=== PATIENT | male | born 1975 | race Caucasian/White ===

== ENCOUNTER 2020-07-14 14:04 | Outpatient (REF) | payer OTHER, SELFPAY | END 2020-07-14 14:05 | disposition home or self-care (01) | LOC: HO.HAP 14:04 | PROVIDERS: PCP Internal Medicine; Referring Provider Internal Medicine; Visit Provider Internal Medicine | DX: Z46.1 Encounter for fitting and adjustment of hearing aid (principal) | CPT/HCPCS: V5266 ==

== ENCOUNTER 2020-08-03 13:00 | Outpatient (REF) | payer OTHER, SELFPAY | END 2020-08-03 13:01 | disposition home or self-care (01) | LOC: HO.HAP 13:00 | PROVIDERS: PCP Internal Medicine; Referring Provider Internal Medicine; Visit Provider Internal Medicine | DX: Z46.1 Encounter for fitting and adjustment of hearing aid (principal); H90.3 Sensorineural hearing loss, bilateral; H93.13 Tinnitus, bilateral | CPT/HCPCS: V5266 ==

== ENCOUNTER 2020-08-10 12:37 | Outpatient (REF) | payer OTHER, SELFPAY | END 2020-08-10 12:38 | disposition home or self-care (01) | LOC: HO.HAP 12:37 | PROVIDERS: Visit Provider Internal Medicine | DX: Z46.1 Encounter for fitting and adjustment of hearing aid (principal) | CPT/HCPCS: V5014 ==

== ENCOUNTER 2021-02-25 01:40 | Emergency (ER) | payer OTHER, SELFPAY ==
[2021-02-25 01:54] VITALS: BP 128/69; PULSE 79; RESP 20; TEMP 37.4; O2SAT 95; BMI 23.8
[2021-02-25 03:59] VITALS: BP 133/71; PULSE 83; RESP 16; O2SAT 97
--- NOTE | 2021-02-25 04:22 | PC.NURSE ---
PT left before being seen by the doctor. pt stated it will only take 10 min to see him. pt was explained that the doctor is aware of his knee and will be over to see him shortly. pt was wanting to go home, walked with a steady gait. pt is alert and oriented and denied pain.
== END 2021-02-25 04:25 | disposition left against medical advice (07) ==
PROVIDERS: Emergency Provider Emergency Medicine; PCP Internal Medicine
DX: M25.561 Pain in right knee (principal)
CPT/HCPCS: 73562; 73590; 99282; 99283; 99284

== ENCOUNTER 2021-02-25 15:40 | Emergency (ER) | payer OTHER, SELFPAY ==
--- NOTE | ~2021-02-25 | XR_ITS ---
EXAMINATION: XR KNEE, RIGHT XR TIBIA AND FIBULA, RIGHT CLINICAL INFORMATION: Swelling COMPARISON: None TECHNIQUE: Right knee 4 views, right tibia and fibula 2 views FINDINGS: Right knee: No joint effusion. Moderate soft tissue swelling at the distal patellar tendon and medial and lateral to the right knee. Alignment is normal without joint space narrowing or acute fracture or dislocation seen. Right tibia and fibula: The alignment is normal. No fracture or dislocation is seen in the tibia or fibula. There is irregularity to the medial dome of the talus and a subtle osteochondral lesion is not excluded. XR/XR knee RT 3V IMPRESSION: Soft tissue swelling at the lower aspect of the patellar tendon. No acute osseous abnormality is seen in the knee or tibia and fibula. Irregularity to the medial pole of the talar dome. A subtle osteochondral lesion is not excluded. If the patient has ankle pain, an MRI could be obtained for further assessment.
--- NOTE | ~2021-02-25 | XR_ITS ---
EXAMINATION: XR KNEE, RIGHT XR TIBIA AND FIBULA, RIGHT CLINICAL INFORMATION: Swelling COMPARISON: None TECHNIQUE: Right knee 4 views, right tibia and fibula 2 views FINDINGS: Right knee: No joint effusion. Moderate soft tissue swelling at the distal patellar tendon and medial and lateral to the right knee. Alignment is normal without joint space narrowing or acute fracture or dislocation seen. Right tibia and fibula: The alignment is normal. No fracture or dislocation is seen in the tibia or fibula. There is irregularity to the medial dome of the talus and a subtle osteochondral lesion is not excluded. XR/XR tibia fibula RT 2V IMPRESSION: Soft tissue swelling at the lower aspect of the patellar tendon. No acute osseous abnormality is seen in the knee or tibia and fibula. Irregularity to the medial pole of the talar dome. A subtle osteochondral lesion is not excluded. If the patient has ankle pain, an MRI could be obtained for further assessment.
[2021-02-25 15:58] VITALS: BP 102/77; PULSE 83; RESP 18; TEMP 37.1; O2SAT 98; BMI 23.7
--- NOTE | 2021-02-25 16:47 | ED_ITS ---
HPI - Extremity Injury (Lower) General Chief Complaint: Extremity Injury, Lower Stated Complaint: R/O DVT Time Seen by Provider: 02/25/21 16:47 History of Present Illness HPI Narrative: patient complains of swelling just below his right knee, he has been kneeling on the floor replacing floors for several weeks with long periods of time kneeling on the knee He went to an urgent care and they were concerned when he mentioned that he had also had some cramping of both his legs that he might have a blood clot in the back of his legs He says the cramping happens often when he kneels for a long time and he is having no pain in the back of his legs now Related Data Home Medications Medication Instructions Recorded Confirmed buprenorphine 2 mg-naloxone 0.5 mg 1 tab SUBLINGUAL DAILY 09/22/20 11/22/20 sublingual tablet zolpidem 10 mg tablet 10 mg PO BEDTIME PRN 09/22/20 11/22/20 Previous Rx's Medication Instructions Recorded albuterol sulfate 90 mcg/actuation 1 puff INHALATION Q6H #8.5 g 09/01/20 aerosol inhaler clotrimazole 1 % topical cream 1 appl TOPICAL BID 14 Days #45 g 01/25/21 ibuprofen 600 mg PO Q6H PRN #20 tab 02/25/21 Allergies Allergy/AdvReac Type Severity Reaction Status Date / Time prednisone [PREDNISONE] AdvReac Unknown SHORTNESS Verified 02/25/21 15:58 OF BREATH Review of Systems Review of Systems: positive for lump below the right knee Negatives are no fever no chills no weakness no fainting no headache no neck pa in no back pain no chest pain no shortness of breath no calf pain or swelling no skin rash no numbness weakness or tingling Yes all other systems are reviewed and are negative PMFSH Past Medical History Source: nursing notes reviewed Medical History (Updated 02/25/21 @ 16:52 by REJI Hoang) Annual physical exam Hearing loss Insomnia Opiate abuse, episodic Tinea corporis Tinnitus Surgical History No pertinent past surgical history Family History Family History (Updated 09/21/20 @ 08:24 by Alayna Joe, RMFigueroa, TALENT MANAGER) Father Lymphoma Mother Breast cancer Social History Social History Alcohol intake: current Alcohol intake frequency: holidays/special occasions o nly Alcohol type: hard liquor Advance Directives: No Advance Directives Information Provided: No Physical Exam Vital Signs: Vital Signs: Last Vital Signs Temp 98.8 F 02/25/21 15:58 Pulse 83 02/25/21 15:58 Resp 18 02/25/21 15:58 BP 102/77 02/25/21 15:58 Pulse Ox 98 02/25/21 15:58 Body Mass Index 23.7 general appearance no distress Head is normocephalic atraumatic Neck is supple Respiratory no acute distress Extremities full range of motion x4 Right knee has swelling consistent with infrapatellar bursitis in the anterior lower leg just distal to the patella, there is no redness no warmth no tenderness no discharge The right knee has a full range of motion without discomfort there is no swelling of the knee joint itself no effusion no redness no warmth Other extremities normal Skin no rashes Gait is normal Course Course Course Narrative: x-ray showed soft tissue swelling in the area with no other significant abnormality noted Patient is advised to avoid kneeling on the right knee as this will worsen the bursitis and he is advised to follow with orthopedist if not improved Discharge Plan Discharge Clinical Impression: Infrapatellar bursitis of right knee Patient Disposition: Home, Self-Care Additional Instructions: you can use Motrin as needed, best plan is to not kneel on the affected knee Follow with orthopedist Return any concerns Prescriptions: New ibuprofen 600 mg tablet 600 mg PO Q6H PRN (Reason: pain) Qty: 20 RF: 0 No Action albuterol sulfate 90 mcg/actuation HFA aerosol inhaler 1 puff inhalation Q6H Qty: 8.5 RF: 3 clotrimazole 1 % cream 1 appl topical BID 14 Days Qty: 45 RF: 3 zolpidem [Ambien] 10 mg tablet 10 mg PO BEDTIME PRNRF: 0 buprenorphine-naloxone 2-0.5 mg tablet, sublingual 1 tab sublingual DAILY RF: 0 Referrals: Jasbir Preciado MD [Physician] - 2 days ( right knee infrapatellar bursitis)
== END 2021-02-25 16:59 | disposition home or self-care (01) ==
PROVIDERS: Emergency Provider Internal Medicine; PCP Internal Medicine
DX: M70.51 Other bursitis of knee, right knee (principal); Y93.89 Activity, other specified; F11.10 Opioid abuse, uncomplicated
CPT/HCPCS: 73562; 73590; 99282; 99283

== ENCOUNTER → 2021-03-07 08:01 | Outpatient (BNVA) | payer OTHER, SELFPAY | PROVIDERS: PCP Internal Medicine; Visit Provider Physician Assistant | DX: M70.51 Other bursitis of knee, right knee (principal) | CPT/HCPCS: 20610; 99202 ==

== ENCOUNTER 2021-04-18 16:00 | Outpatient (RCR) | payer OTHER, SELFPAY ==
--- NOTE | 2021-03-20 11:30 | MHC.PT.EP ---
[facility] [place] Office [place] Office [place] Office [address] [phone] F: [phone] F: [phone] F: [phone] F: [phone] Physical Therapy Plan of Care Date of Evaluation: Date of Surgery: Diagnosis: Bursitis of R knee. Assessment: Pt is a 46 y/o male referred to PT for eval and treat of R knee bursitis who presents with signs and Sx consistent with Dx resulting in decreased tolerance for ambulating and standing for duration, negotiating stairs, performing heavy HH tasks as well as squatting activities secondary to R knee patella tendon swelling and TTP, increased quad tissue tension, gait abnormality, and pain. Pt is deemed an appropriate candidate to receive skilled PT in order to address his physical limitations to improve his functional ability. Frequency and Duration: The patient will be seen 2 x / wk x 4 wks. Short Term Goals: Initiate HEP. No longer TTP of R anterior knee. Pt will complete trial of iontophereses with Dexamethasone as recommended by MD. Hip Hop Performers Goals: Pt will be able to walk 1 mile with managed Sx; initial: unable or with extreme difficulty. I with HEP. Pt will be able to tolerate standing > 1 hour with managed Sx; initial: quite a bit of difficulty. R knee extension MMT improved to > 4+/5; initial 4/5 limited by pain and apprehension. Treatment Plan: Modalities to reduce pain, spasms and effusion. Manual therapy to restore motion and function. Therapeutic exercise to improve strength and flexibility. Neuromuscular re-education for posture and balance. Therapeutic activities to return to functional activities of daily living. Electronically signed by: Gallo Maddox PT. Please sign and return to therapist. Thank you for your referral.
--- NOTE | 2021-05-04 14:12 | MHC.PT.DC ---
[facility] [place] [facility] [place] Office [place] Office [address] Phuc Mac[address] [phone] F: [phone] F: [phone] F: [phone] F: [phone] Physical Therapy Discharge Report Diagnosis: Bursitis of R knee. Date of Surgery: Date of Evaluation: 03/20/21 Date of Discharge: 05/04/21 Treatments to Date: 8 Cancellations to Date: No Shows to Date: Discharge Status: Achieved Goals Improved Function Independent with HEP Patient Elected to Stop Discharge Summary: Pt has a good understanding of exs. Pt concerned he is lacking iron. Advised to F/U with to get bl work completed. Electronically signed by: Gallo Maddox PT Please sign and return to therapist. Thank you for your referral.
== END 2021-05-04 14:12 | disposition home or self-care (01) ==
LOC: HO.PTCHIC 16:00
PROVIDERS: PCP Internal Medicine; Visit Provider Physician Assistant
DX: M70.51 Other bursitis of knee, right knee (principal)
CPT/HCPCS: 97014; 97033; 97110; 97140; 97161; 97530

== ENCOUNTER 2021-05-01 11:54 | Outpatient (REF) | payer OTHER, SELFPAY ==
[2021-05-01 14:07] LABS: Hematocrit 42.6 % (42-52); Hemoglobin 14.7 g/dl (14.0-18.0); Mean Corpuscular HGB Conc 34.5 g/dl (31.0-36.0); Mean Corpuscular Hemoglobin 29.1 pg (27.0-33.0); Mean Corpuscular Volume 84.2 fL (80-98); Mean Platelet Volume 11.3 fL (9.4-12.4); Platelet Count 201 X10*3/uL (160-400); Red Blood Count 5.06 X10*6/uL (4.60-5.80); Red Cell Distribution Width 12.5 % (11.0-16.0); White Blood Count 5.8 X10*3/uL (4.8-10.8)
[2021-05-01 14:29] LABS: Alanine Aminotransferase 14 U/L (0-40); Albumin Level 4.1 g/dL (3.5-5.0); Alkaline Phosphatase 60 U/L (39-117); Anion Gap 11 (12-20); Aspartate Amino Transferase 23 U/L (5-37); Bilirubin Total 0.6 mg/dL (0.0-1.0); Blood Urea Nitrogen 13 mg/dL (9-16); Calcium 9.2 mg/dL (8.4-10.2); Carbon Dioxide 26 mmol/L (22-29); Chloride 105 mmol/L (96-108); Cholesterol 160 mg/dL; Estimated Glomerular Filt Rate > 60; Glucose Fasting 81 mg/dL (60-99); HDL Cholesterol 53 mg/dL; Iron 108 mcg/dL (45-160); LDL Cholesterol Calculated 95 mg/dl; Percent Iron Saturation 38 % (15-50); Potassium 4.3 mmol/L (3.3-5.1); Sodium 138 mmol/L (135-145); Total Iron Binding Capacity 287 mcg/dL (228-428); Total Protein 6.2 g/dL (6.5-8.0); Triglycerides 61 mg/dL; Unsaturated Iron Binding 179 ug/dL
== END 2021-05-01 11:55 | disposition home or self-care (01) ==
LOC: HO.HMGCLDS 11:54
PROVIDERS: PCP Internal Medicine; Visit Provider Internal Medicine
DX: Z00.00 Encounter for general adult medical examination without abnormal findings (principal)
CPT/HCPCS: 36415; 80053; 80061; 83540; 85027

== ENCOUNTER 2021-07-12 08:52 | Outpatient (REF) | payer OTHER, SELFPAY ==
[2021-07-12 13:42] LABS: CT PCR NOT DETECTED (Not Detect.); NG PCR NOT DETECTED (Not Detect.)
[2021-07-13 08:29] LABS: Syphilis Screen Nonreactive (Nonreactive)
[2021-07-13 09:29] LABS: HBS Num1 1.43 mIU/mL (0-7.99); HBc Num1 0.04 S/CO (0.00-0.79); HIV AB/AG Nonreactive (Nonreactive); HIV Num 1 0.07 S/CO (0.00-0.99); Hepatitis B Core Antibody Nonreactive (Nonreactive); ~Hepatitis B Surface Antibody NONREACTIVE (Nonreactive)
== END 2021-07-12 08:53 | disposition home or self-care (01) ==
LOC: HO.HMGCLDS 08:52
PROVIDERS: PCP Internal Medicine; Visit Provider Internal Medicine
DX: Z00.00 Encounter for general adult medical examination without abnormal findings (principal); Z11.4 Encounter for screening for human immunodeficiency virus [HIV]; Z11.3 Encounter for screening for infections with a predominantly sexual mode of transmission
CPT/HCPCS: 86704; 86706; 86780; 87389; 87491; 87591

== ENCOUNTER 2021-07-17 13:03 | Outpatient (REF) | payer OTHER, SELFPAY ==
[2021-07-19 21:57] LABS: TS Negative Control Passed; TS Panel A 0; TS Panel B 0; TS Positive Control Passed; TSpotTB Negative (Negative)
== END 2021-07-17 13:04 | disposition home or self-care (01) ==
LOC: HO.HMGCLDS 13:03
PROVIDERS: PCP Nurse Practitioner Family; Visit Provider Nurse Practitioner Family
DX: Z11.1 Encounter for screening for respiratory tuberculosis (principal)
CPT/HCPCS: 36415; 86481

== ENCOUNTER 2021-07-27 15:06 | Outpatient (REF) | payer OTHER, SELFPAY | END 2021-07-27 15:07 | disposition home or self-care (01) | LOC: HO.HAP 15:06 | PROVIDERS: Visit Provider Nurse Practitioner Family | DX: Z46.1 Encounter for fitting and adjustment of hearing aid (principal); H90.3 Sensorineural hearing loss, bilateral | CPT/HCPCS: 92593; V5266 ==

== ENCOUNTER 2021-10-22 12:29 | Outpatient (REF) | payer OTHER, SELFPAY ==
--- NOTE | 2021-10-24 10:11 | MHC.AU.AHA ---
Adult Audiological Evaluation Date of Visit: 10/22/21 Reason for Appointment: History of sensorineural hearing loss, tinnitus, and hyperacusis. He arrives today to determine if there has been a change in his hearing. Patient reports that his tinnitus contributes significantly to his anxiety. He tries to avoid being in quiet spaces, as it makes his tinnitus more pronounced. 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 History of Eustachian Tube Dysfunction- patient reports he frequently pops his ears throughout the day to relieve pressure. Previous Hearing Test Results: At [facility] on 05/27/2018- Normal sloping to moderate/moderately-severe sensorineural hearing loss bilaterally, slightly worse in the left ear. Ear History: Recent Ear Drainage: None Reported Recent Ear Infections: None Reported Previous Ear Surgery: None Reported Bothersome Tinnitus/Ringing/Noises in Ears: Both Ears History of occupational noise exposure?: Yes Hearing Instrument History- Right Ear: Geophysical Party Chief: Property Owl Model: Next Glass [id number] Serial Number: [id number] Battery Size: 312 Repair Warranty: 12/23/2018 Dispensed By: [facility] Date of Fittin10/09/2016 Hearing Instrument History- Left Ear: Geophysical Party Chief: Property Owl Model: Next Glass [id number] Serial Number: [id number] Battery Size: 312 Repair Warranty: 12/23/2018 Dispensed By: [facility] Date of Fittin10/09/2016 Otoscopy: Right Ear: Unremarkable Left Ear: Unremarkable Tympanometry: Tympanometry performed due to: To assess integrity of the middle ear system Right Ear: Normal Middle Ear System (Type A) Left Ear: Normal Middle Ear System (Type A) Hearing Evaluation: Transducer(s) Used: Insert Earphones Method: Conventional Audiometry Stimuli Used: Pure Tones Right Ear: Description of Hearing: Normal from 250-1000 Hz, sloping to moderately-severe sensorineural hearing loss Left Ear: Description of Hearing: Normal from 250-1000 Hz, sloping to moderately-severe sensorineural hearing loss Speech Recognition Threshold (SRT): Method Used: Recorded Lists Stimuli Used: Spondee Words Right Ear: 40 dBHL Left Ear: 35 dBHL Word Discrimination: Method: Recorded Lists Word Lists Used: W-22 Right Ear: 84% at 70 dBHL Left Ear: 84% at 70 dBHL Most Comfortable Level (MCL): Right Ear: 70 dBHL Left Ear: 70 dBHL Comparison: Compared to most recent evaluation: Slight decrease in thresholds in the right ear. Previously, left ear was slightly worse; now, the hearing is more symmetrical. Recommendations: Audiological re-evaluation in one year. See Hearing Aid Evaluation report for more information. Diagnosis: Primary Diagnosis: H90.3 Bilateral Sensorineural Hearing Loss Secondary Diagnosis: H93.13 Tinnitus, Bilateral Signature: Provider: Alma Rosa Mathis, [facility]
--- NOTE | 2021-10-24 10:13 | MHC.AU.MED ---
Medical Clearance for Hearing Instrumentation Date: 10/24/21 Patient Name: Ulises Macias Date of : 1975 Referring Provider: Mariola Cifuentes MD We have seen your patient on 10/12/21 and have determined that they are a candidate for amplification (See accompanying report). Specifically, they would benefit from: Hearing aid use in both ears There is a statute that addresses Medical Evaluation Requirements prior to fitting a patient with a hearing aid. According to [place] statute [facility] CMR:6.03(1), (a) General. Except as provided in 265 CMR 6.03(1)(b), a pneumatic tube fitter shall not sell a hearing aid unless the prospective user has presented to the pneumatic tube fitter a written statement signed by a licensed physician that states that the patient's hearing loss has been medically evaluated and the patient may be considered a candidate for a hearing aid. The medical evaluation must have taken place within the preceding six months. Please note: Due to the [place] Statute referenced above, we cannot accept a signature other than that of a licensed physician. CUSTOMER ACCOUNT EXECUTIVE and PA signatures cannot be accepted. I am in agreement with the above recommendation. There is no medical contraindication for hearing instrumentation. Physician Signature Date Physician Name (Printed)
--- NOTE | 2021-10-24 10:14 | MHC.AU.HAS ---
Hearing Aid Evaluation Date of Visit: 10/22/21 Historical Information: Description of Hearing: Normal sloping to moderately-severe sensorineural hearing loss bilaterally Current personal amplification information, if applicable: Pair of Phonak Audeo [id number], obtained 10/09/2016 Summary: Patient was seen for audiological re-evaluation (see separate report for details). Patient is eligible for new hearing aids. With his current hearing aids, he reports that he often had difficulty localizing sound. He also reports they would fall off easily if he was changing his shirt. Hearing aid options were discussed. A pair of Phonak Audeo P instruments and a pair of ReSound One instruments. Patient felt both had an improved sound quality over his current instruments. He liked the way the ReSound Ones sat behind his ear better, but reported that both felt comfortable. Discussed ReSound's M&STEPHANIA receivers and how it may help with localization- patient would like to try them. He would also like rechargeable, as he does many outdoor activities and would like something more water/sweat resistant. Hearing Aid Prescription: Based on the individual?s shared listening needs, communication environments, dexterity, desire for connectivity, and personal preferences, the following prescription for amplification has been made: Right ear: Hides And Skins Colorer: ReSound Model: One 7 STEPHANIA Rechargeable Battery Size: Rechargeable Color: 70 Custom Studio Coordinator: Size 2 M&STEPHANIA Type of Dome: large open Left ear: Left ear prescription to be same as Right Hearing Aid above: Hides And Skins Colorer: ReSound Model: One 7 STEPHANIA Rechargeable Battery Size: Rechargeable Color: 70 Custom Studio Coordinator: Size 2 M&STEPHANIA Type of Dome: Large open Action Taken/Action Needed: Medical Clearance to be requested from PCP Hearing Instrument Fitting to be scheduled when materials arrive Primary Diagnosis: H90.3 Bilateral Sensorineural Hearing Loss Secondary Diagnosis: H93.13 Tinnitus, Bilateral Signature: Provider: Alma Rosa Mathis, [facility]
== END 2021-10-22 12:30 | disposition home or self-care (01) ==
LOC: HO.SH 12:29
PROVIDERS: Visit Provider Internal Medicine
DX: Z01.118 Encounter for examination of ears and hearing with other abnormal findings (principal); Z46.1 Encounter for fitting and adjustment of hearing aid; H90.3 Sensorineural hearing loss, bilateral; H93.13 Tinnitus, bilateral
CPT/HCPCS: 92557; 92567; 92591; V5266

== ENCOUNTER 2021-11-09 13:31 | Outpatient (REF) | payer OTHER, SELFPAY ==
--- NOTE | 2021-11-09 14:42 | MHC.AU.HFA ---
Hearing Instrument Fitting- Adult- Binaural Date of Visit: 11/09/21 Hearing Instruments Dispensed: Right Ear: Cable Operator: ReSound Model: One 7 STEPHANIA Rechargeable Serial Number: [id number] Repair Warranty: 12/01/2024 Loss and Damage Warranty: 12/01/2024 Battery Size: Rechargeable Color: 70 Pen Ruler Operator: Size 2 M&STEPHANIA Type of Dome: large open Left Ear: Cable Operator: ReSound Model: One 7 STEPHANIA Rechargeable Serial Number: [id number] Repair Warranty: 12/01/2024 Loss and Damage Warranty: 12/01/2024 Battery Size: Rechargeable Color: 70 Pen Ruler Operator: Size 2 M&STEPHANIA Type of Dome: Large open Type of Wax Guard: CeruStop Summary of Fitting: Patient arrived for hearing aid fitting. Calibration was run. Verifit performed and levels adjusted to better reach targets. Initially, M&STEPHANIA receivers with large closed domes were originally tried. Patient felt his own voice was too loud (he is used to using open domes). Switched to open domes; however, too much feedback was present. Switched to tulip domes, but all sound overall was too loud. Changed back to regular 2MP receivers. An improvement in feedback and patient's perception of the sound was noted, though some feedback remained if he put his finger near the microphones. He would like to try them for now, as he did like that they sounded natural. Patient is used to [employer]'s feedback management system and domes. A pair of [employer] Audeo [id number] will be ordered. Patient will try them at the next visit and decide if he would like to stay with the ReSound instruments or go back to [employer]. Patient did not want the hearing aids paired to his phone at this moment- he will do so at home. Recommendations: Patient will be contacted when the [employer] instruments have arrived. Diagnosis Code(s): Primary Diagnosis: H90.3 Bilateral Sensorineural Hearing Loss Secondary Diagnosis: H93.13 Tinnitus, Bilateral Signature: Provider: Alma Rosa Mathis, [facility]
== END 2021-11-09 13:32 | disposition home or self-care (01) ==
LOC: HO.HAP 13:31
PROVIDERS: Visit Provider Internal Medicine
DX: Z46.1 Encounter for fitting and adjustment of hearing aid (principal); H90.3 Sensorineural hearing loss, bilateral; H93.13 Tinnitus, bilateral
CPT/HCPCS: V5011; V5020; V5160; V5261

== ENCOUNTER 2021-11-14 13:37 | Outpatient (REF) | payer OTHER, SELFPAY | END 2021-11-14 13:38 | disposition home or self-care (01) | LOC: HO.HAP 13:37 | PROVIDERS: Visit Provider Internal Medicine | DX: Z13.89 Encounter for screening for other disorder (principal) ==

== ENCOUNTER 2021-11-22 15:12 | Outpatient (REF) | payer OTHER, SELFPAY | END 2021-11-22 15:13 | disposition home or self-care (01) | LOC: HO.HAP 15:12 | PROVIDERS: Visit Provider Internal Medicine | DX: Z46.1 Encounter for fitting and adjustment of hearing aid (principal); H90.3 Sensorineural hearing loss, bilateral; H93.13 Tinnitus, bilateral | CPT/HCPCS: V5160 ==

== ENCOUNTER → 2021-11-27 13:59 | Outpatient (BNVA) | payer OTHER, SELFPAY | PROVIDERS: PCP Internal Medicine; Visit Provider Nurse Practitioner Family | DX: G47.31 Primary central sleep apnea (principal); G47.33 Obstructive sleep apnea (adult) (pediatric); G47.00 Insomnia, unspecified | CPT/HCPCS: 99212 ==

== ENCOUNTER 2021-11-30 13:17 | Outpatient (REF) | payer OTHER, SELFPAY ==
--- NOTE | 2021-11-30 15:33 | MHC.AU.HFU ---
Hearing Instrument Follow-Up- Binaural Date of Visit: 11/30/21 Follow-Up Summary: Patient has primarily been using the Phonak instruments since his last visit. He feels they are very close to being what he needs, but there's still a few concerns. He has noticed that when transitioning between environments (ex. car to restaurant) he hears them breaking up for a brief moment. He also noted that certain sounds may have a slight echo after. In program options for AutoSense, slowed the transition time from Balanced to Slow, as part of the issue may be that he could sense the automatic switch in programs. He went outside to his car and back in to test, and he feels it is better, but still not quite where he wants it. He asked if there was a way to decrease the microphone sensitivity instead of decreasing gain. Discussed that the software does not allow us to specifically adjust microphone sensitivity, but we can adjust the directionality. After demonstrating the different directionalities, patient immediately noticed an improvement when in Omnidirectional mode. He reports that he feels more balanced in his environment, and that it sounds much more natural. In all of the sub-program in AutoSense, directionality was switched to Omni. He was given a program that was speech in noise with UltraZoom still in place in case he has trouble hearing in a noisy environment and needs the directionality to help. Recommendations: Patient will make an appointment for next week to check progress. He will also bring in the ReSound hearing aids, and he would like to try Omnidirectional in those as well. Also considering a demo of the Oticon More, as those may be closer to the omni sound experience that he likes. Diagnosis Code(s): Primary Diagnosis: H90.3 Bilateral Sensorineural Hearing Loss Secondary Diagnosis: H93.13 Tinnitus, Bilateral Signature: Provider: Alma Rosa Mathis, [facility]
== END 2021-11-30 13:18 | disposition home or self-care (01) ==
LOC: HO.HAP 13:17
PROVIDERS: Visit Provider Internal Medicine
DX: Z13.89 Encounter for screening for other disorder (principal)

== ENCOUNTER 2022-01-01 08:49 | Outpatient (REF) | payer OTHER, SELFPAY ==
--- NOTE | ~2022-01-01 | XR_ITS ---
EXAMINATION: XR HAND, RIGHT CLINICAL INFORMATION: Pain in right hand. COMPARISON: None. TECHNIQUE: PA, lateral, and oblique views of the right hand. FINDINGS: There is loss of PIP and DIP joint spaces without periarticular spurring. No bony erosive changes. The soft tissues are normal. XR/XR hand RT min 3V IMPRESSION: Suspect mild degenerative changes PIP and DIP joints. No visible acute fracture or dislocation, especially no abnormality involving the 1st metacarpophalangeal joint.
== END 2022-01-01 08:50 | disposition home or self-care (01) ==
LOC: HO.HOSX 08:49
PROVIDERS: Visit Provider Orthopaedic Surgery
DX: S63.641A Sprain of metacarpophalangeal joint of right thumb, initial encounter (principal)
CPT/HCPCS: 73130

== ENCOUNTER 2022-01-17 13:46 | Outpatient (REF) | payer OTHER, SELFPAY | END 2022-01-17 13:47 | disposition home or self-care (01) | LOC: HO.HAP 13:46 | PROVIDERS: Visit Provider Internal Medicine | DX: Z13.89 Encounter for screening for other disorder (principal) ==

== ENCOUNTER 2022-01-18 14:47 | Outpatient (REF) | payer OTHER, SELFPAY | END 2022-01-18 14:48 | disposition home or self-care (01) | LOC: HO.HAP 14:47 | PROVIDERS: Visit Provider Internal Medicine | DX: Z13.89 Encounter for screening for other disorder (principal) ==

== ENCOUNTER 2022-01-22 14:30 | Outpatient (RCR) | payer OTHER, SELFPAY ==
--- NOTE | 2022-01-09 09:04 | MHC.OT.EP ---
[address] [phone] Occupational Therapy Plan of Care Date of Evaluation: 01/08/22 Diagnosis: Right thumb UCL strain Assessment: 46 yo right hand dominant male presents w/ right thumb UCL strain due to repetitive use and one incidence of overpulling/extending his thumb while attempting to pop the joint. On assessment, he has good range, sensation and stability in MCP of right thumb, but has moderate edema and reports decreased strength w/ every day activities, specifically pinching and grasping. We have fit him with custom hand based thumb spica w/ IP free to maintain MCP stability. We will continue OT services for conservative management of UCL strain. Frequency and Duration: The patient will be seen 1x/wk for 4 weeks Short Term Goals: Ind w/ orthosis wear Ind w/ joint protection/activity modification Pain free at rest in right thumb Decrease thumb edema by 0.[address] Mri Technologist Goals: Decrease thumb edema by 0.5 cm Pt to utilize right hand/thumb for light prehensile tasks while avoiding resisted pinching Progress AROM of MCP jt Pt to maintain low pain in right thumb with light use of hand *will progress/reassess for further need for services after ortho follow up 02/05/22 Treatment Plan: Therapeutic Exercise Therapeutic Activity Home Exercise Program Splinting Patient Education Edema Control ADL Training Ultrasound Iontophoresis Paraffin Fluidotherapy MHP Cold Packs Soft Tissue Mobilization Kinesiotaping Electronically Signed By: Miriam Lombardi OTR/L CHT Please Sign and return to therapist. Thank you once again for your referral.
--- NOTE | 2022-02-19 13:44 | MHC.OT.DC ---
[address] [phone] F: [phone] Occupational Therapy Discharge Note Provider: Dr Monae Diagnosis: Right thumb UCL strain Date of Evaluation: 01/08/22 Date of Discharge: 02/19/22 Treatments to Date: 5 Discharge Status: Independent with HEP Discharge Summary: Reza has been seen by OT for splinting needs related to Gamekeeper's thumb. He had been on hold w/ instruction to wear thumb spica orthosis until follow up with Dr Monae. He has had follow up and appears to be doing well with good range and pain free. No further OT services needed at this time. Electronically Signed By: Miriam Lombardi OTR/L CHT Please Sign and return to therapist, thank you for your referral.
== END 2022-02-19 13:45 | disposition home or self-care (01) ==
LOC: HO.OT 14:30
PROVIDERS: PCP Internal Medicine; Visit Provider Orthopaedic Surgery
DX: S63.641D Sprain of metacarpophalangeal joint of right thumb, subsequent encounter (principal)
CPT/HCPCS: 29130; 97140; 97165; 97760

== ENCOUNTER 2022-01-25 16:09 | Outpatient (REF) | payer OTHER, SELFPAY | END 2022-01-25 16:10 | disposition home or self-care (01) | LOC: HO.HAP 16:09 | PROVIDERS: Visit Provider Internal Medicine | DX: Z13.89 Encounter for screening for other disorder (principal) ==

== ENCOUNTER 2022-01-28 14:16 | Outpatient (REF) | payer OTHER, SELFPAY | END 2022-01-28 14:17 | disposition home or self-care (01) | LOC: HO.HAP 14:16 | PROVIDERS: Visit Provider Internal Medicine | DX: Z13.89 Encounter for screening for other disorder (principal) ==

== ENCOUNTER → 2022-02-05 13:41 | Outpatient (BNVA) | payer OTHER, SELFPAY | PROVIDERS: PCP Internal Medicine; Visit Provider Orthopaedic Surgery | DX: S63.641D Sprain of metacarpophalangeal joint of right thumb, subsequent encounter (principal) | CPT/HCPCS: 99212 ==

== ENCOUNTER 2022-02-06 15:02 | Outpatient (REF) | payer OTHER, SELFPAY | END 2022-02-06 15:03 | disposition home or self-care (01) | LOC: HO.HAP 15:02 | PROVIDERS: Visit Provider Internal Medicine | DX: Z13.89 Encounter for screening for other disorder (principal) ==

== ENCOUNTER 2022-02-13 13:59 | Outpatient (REF) | payer OTHER, SELFPAY ==
--- NOTE | 2022-02-13 18:18 | MHC.AU.HFU ---
Hearing Instrument Follow-Up- Binaural Date of Visit: 02/13/22 Right Ear: Head Of Commission Department: ReSound Model: One 7 STEPHANIA Rechargeable Serial Number: [id number] Repair Warranty: 12/01/2024 Loss and Damage Warranty: 12/01/2024 Battery Size: Rechargeable Color: 70 Program Manager Slp: Size 2 MP Type of Dome: large open Type of Wax Guard: ReSound wax guards Dispensed By: [facility] Date of Fittin11/09/2021 Left Ear: Head Of Commission Department: ReSound Model: One 7 STEPHANIA Rechargeable Serial Number: [id number] Repair Warranty: 12/01/2024 Loss and Damage Warranty: 12/01/2024 Battery Size: Rechargeable Color: 70 Program Manager Slp: Size 2 MP Type of Dome: Large open Type of Wax Guard: ReSound wax guards Dispensed By: [facility] Date of Fittin Follow-Up Summary: Mr. Macias decided he would like to keep the ReSound One hearing aids and return the Phonak Audeo hearing aids. He turned in the Phonak hearing aids today and they will be returned for credit. He asked for some adjustments to the ReSound aids. He notes that the push button changes programs instead of volume control. Changed push button to do volume control, and turned volume control range up per his request. He notes that the Restaurant program seems too loud. Turned down three notches to match the All Around program more closely. He also asked that a Music program be added and put in the second position. Mr. Macias also asked to have retention wires added to the hearing aids. He reported comfortable fit and sound quality. Signature: Provider: Alma Rosa Zuniga, [facility]
== END 2022-02-13 14:00 | disposition home or self-care (01) ==
LOC: HO.HAP 13:59
PROVIDERS: Visit Provider Internal Medicine
DX: Z13.89 Encounter for screening for other disorder (principal)

== ENCOUNTER 2022-02-20 13:59 | Outpatient (REF) | payer OTHER, SELFPAY ==
--- NOTE | 2022-02-21 15:03 | MHC.AU.HFU ---
Hearing Instrument Follow-Up- Binaural Date of Visit: 02/20/22 Follow-Up Summary: Patient's Phonak hearing aids were returned for credit last week. He has since changed his mind and is inquiring if it is too late to switch back to Phonak. He reports that while he prefers the sound quality and the jenny for ReSound, they are not as comfortable as the Phonak ones. He finds that the wind noise on the ReSound instruments is too loud and bothersome, possibly due to the orientation of the microphones. The size of the ReSound instruments is larger overall, and is not comfortable behind his ears. The speaker portion of the multifocal lens inspector wire is also longer on the ReSounds receivers, which has been bothering his canals. He does not think he'd be able to handle using the ReSound instruments long-term. He brought his father's Phonak hearing aids and reported that his father is not using them. He inquired if his father's Phonak hearing aids could be reprogrammed for him so he could switch between ReSound and Phonak as desired. Discussed that I would not reprogram them at this time, as his father should be the one using and benefiting from them. Advised patient to encourage his father to schedule a hearing aid follow-up to address why he is not wearing them. The ReSound trial was previously extended until 02/27/2022. I allowed the ReSound instruments to be returned since they were causing physical discomfort. Patient was provided with a loaner set of Phonak Audeo P50-R Trial instruments (#[id number], [id number]). The Phonak hearing aids will be re-ordered. Discussed that after this, we cannot switch the hearing aids back again. Recommendations: Patient will be contacted when materials have arrived. Diagnosis Code(s): Primary Diagnosis: H90.3 Bilateral Sensorineural Hearing Loss Secondary Diagnosis: H93.13 Tinnitus, Bilateral Signature: Provider: Alma Rosa Mathis, [facility]
== END 2022-02-20 14:00 | disposition home or self-care (01) ==
LOC: HO.HAP 13:59
PROVIDERS: Visit Provider Internal Medicine
DX: Z13.89 Encounter for screening for other disorder (principal)

== ENCOUNTER 2022-03-04 17:51 | Outpatient (REF) | payer OTHER, SELFPAY ==
[2022-03-04 18:43] LABS: Influenza A PCR NEGATIVE (Negative); Influenza B PCR NEGATIVE (Negative); Resp Syncy Virus RNA Qual PCR NEGATIVE (Negative); SARS COV2 PCR INHOUSE NEGATIVE (Negative)
== END 2022-03-04 17:52 | disposition home or self-care (01) ==
LOC: HO.LNP 17:51
PROVIDERS: Visit Provider Emergency Medicine
DX: R68.89 Other general symptoms and signs (principal); Z20.822 Contact with and (suspected) exposure to COVID-19
CPT/HCPCS: 0241U

== ENCOUNTER 2022-03-05 14:28 | Outpatient (REF) | payer OTHER, SELFPAY ==
--- NOTE | ~2022-03-05 | XR_ITS ---
EXAMINATION: XR CHEST CLINICAL INFORMATION: Bronchitis COMPARISON: Previous chest x-ray February 2016 TECHNIQUE: 2 views of the chest were obtained. FINDINGS: The cardiac and mediastinal contours are normal. There is a new airspace disease in the left central upper lobe/suprahilar region. This may represent pneumonia. Mass cannot be excluded and chest x-ray follow-up following treatment is recommended. Lungs are otherwise clear. There is no pleural effusion or pneumothorax. There are degenerative changes of the spine. XR/XR chest 2V IMPRESSION: New airspace disease in the central left upper lobe/suprahilar region probably representing pneumonia. Mass cannot be excluded and chest x-ray follow-up following treatment recommended. If chest x-ray finding fails to resolve or there is no clinical suspicion of infection, chest CT with IV contrast would be recommended.
== END 2022-03-05 14:29 | disposition home or self-care (01) ==
LOC: HO.HMGCX 14:28
PROVIDERS: Visit Provider Physician Assistant
DX: J40 Bronchitis, not specified as acute or chronic (principal)
CPT/HCPCS: 71046

== ENCOUNTER 2022-03-07 14:54 | Outpatient (REF) | payer OTHER, SELFPAY ==
--- NOTE | 2022-03-14 10:42 | MHC.AU.HFA ---
Hearing Instrument Fitting- Adult- Binaural Date of Visit: 03/07/22 Hearing Instruments Dispensed: Right Ear: Spinner Box: Phonak Model: Audeo P70-R Serial Number: [id number] Repair Warranty: 05/22/2025 Loss and Damage Warranty: 05/22/2025 Battery Size: Rechargeable Color: Sand Beige Human Geography Instructor: Size 2M Type of Dome: Medium Open Type of Wax Guard: Cerushield Left Ear: Spinner Box: Phonak Model: Audeo P70-R Serial Number: [id number] Repair Warranty: 05/22/2025 Loss and Damage Warranty: 05/22/2025 Battery Size: Rechargeable Color: Sand Beige Human Geography Instructor: Size 2M Type of Dome: Medium Open Type of Wax Guard: Cerushield Summary of Fitting: Patient arrived for fitting of his Phonak Audeo P70-R instruments. The ReSound instruments were previously returned for credit. He returned the loaner instruments in good condition. The Phonak hearing aids were programmed with the latest settings from when he initially tried the Audeo P70-R (verifit had been run previously). Hearing aid care and maintenance were discussed. Patient reports he feels more confident in his decision to return to the Phonak instruments, as he finds them more comfortable than the ReSound ones. Recommendations: Hearing aid follow-up and maintenance as needed. Diagnosis Code(s): Primary Diagnosis: H90.3 Bilateral Sensorineural Hearing Loss Secondary Diagnosis: H93.13 Tinnitus, Bilateral Signature: Provider: Alma Rosa Mathis, [facility]
== END 2022-03-07 14:55 | disposition home or self-care (01) ==
LOC: HO.HAP 14:54
PROVIDERS: Visit Provider Internal Medicine
DX: Z46.1 Encounter for fitting and adjustment of hearing aid (principal); H90.3 Sensorineural hearing loss, bilateral; H93.13 Tinnitus, bilateral
CPT/HCPCS: V5011; V5020; V5160; V5261

== ENCOUNTER 2022-03-14 10:40 | Outpatient (REF) | payer OTHER, SELFPAY ==
--- NOTE | ~2022-03-14 | XR_ITS ---
EXAMINATION: XR CHEST CLINICAL INFORMATION: Pneumonia COMPARISON: 03/05/2020 TECHNIQUE: 2 views of the chest were obtained. FINDINGS: Right lung is clear. There is stable left upper lobe irregular, spiculated 2.6 x 3.2 cm consolidation, possibly mass. Cardiomediastinal silhouette is normal. No evidence of pleural effusion. XR/XR chest 2V IMPRESSION: Questionable left upper lobe mass. Correlate with CT scan Communication: Findings reported to Dr. Mariola Victor at 12:30 PM on 03/14/2022
== END 2022-03-14 10:41 | disposition home or self-care (01) ==
LOC: HO.HMGCX 10:40
PROVIDERS: PCP Internal Medicine; Visit Provider Internal Medicine
DX: J18.9 Pneumonia, unspecified organism (principal)
CPT/HCPCS: 71046

== ENCOUNTER 2022-03-22 10:56 | Outpatient (REF) | payer OTHER, SELFPAY ==
--- NOTE | ~2022-03-22 | CT_ITS ---
EXAMINATION: CT CHEST WITH CONTRAST CLINICAL INFORMATION: Left upper lobe lung mass COMPARISON: Previous chest x-ray 03/14/2022 TECHNIQUE: Multidetector volumetric CT imaging of the chest was obtained after the administration of 65 mL of Omnipaque 350 intravenous contrast without immediate adverse reactions. Axial MIP volume rendering provided. Sagittal and coronal reformatted images were obtained. This CT examination was performed using dose optimization techniques as appropriate, variously including the following: *Automated exposure control *Adjustment of mA and/or kV according to patient size (this includes techniques or standardized protocols for targeted exams where dose is matched to indication/reason for exam; i.e. extremities or head) *Use of iterative reconstruction technique DLP: 291 mGy-cm FINDINGS: CROP OR GRAIN FARMER: Spiculated lesion left upper lobe LUNGS: There is a solitary spiculated cavitary nodule in the anterior segment of the left upper lobe. This is irregular in shape and difficult to measure. This measures 5 x 2 cm in longitudinal and transverse dimension coronal reconstructed image 31 and 4.5 cm anterior dimension sagittal reconstructed image 36. This has spicules extending to the anterior and medial pleural surfaces. There may be adjacent focal bronchiectasis. There is some surrounding increased groundglass attenuation. There is a 4 mm right upper lobe nodule axial image 191 series 5. MEDIASTINUM: There are small mediastinal and bilateral hilar lymph nodes. No enlarged lymph nodes are seen. Normal heart size. No pericardial effusion. Normal caliber thoracic aorta. Normal visualized thyroid gland. PLEURA: There is no pleural effusion. No pleural mass or thickening. AXILLA: No lymphadenopathy. UPPER ABDOMEN: There are multiple liver cysts. Largest cyst measures 3 x 4.5 cm in the right lobe of the liver. OSSEOUS STRUCTURES: There are degenerative changes of the spine. CT/CT chest w con IMPRESSION: Spiculated cavitary lesion in the left upper lobe. Infectious, inflammatory and neoplastic processes should be considered. If there is clinical symptoms of infection/pneumonia, short-term follow-up CT following antibiotic therapy would be recommended in several weeks. Otherwise tissue sampling should be considered. Fleischner guidelines were followed. Findings will be communicated by the [place] work flow senior business development manager.
[2022-03-22] MEDS: iohexoL 350 MG/ML 75 ML INFUS..BTL 65 ML IV (11:51)
== END 2022-03-22 10:57 | disposition home or self-care (01) ==
LOC: HO.CT 10:56
PROVIDERS: PCP Internal Medicine; Visit Provider Internal Medicine
DX: R91.8 Other nonspecific abnormal finding of lung field (principal)
CPT/HCPCS: 71260; Q9967

== ENCOUNTER 2022-04-01 12:44 | Outpatient (REF) | payer OTHER, SELFPAY ==
--- NOTE | ~2022-04-01 | XR_ITS ---
EXAMINATION: XR CHEST CLINICAL INFORMATION: Left upper lobe cavitary lesion. Follow-up. J18.9. COMPARISON: Chest radiographs 03/14/2022, 03/05/2022, CT chest noncontrast 03/22/2022 TECHNIQUE: 2 views of the chest were obtained. FINDINGS: The irregular cavitary mass anterior left upper lobe is substantially decreased in size from prior studies. There is still some irregular opacity in the area and continued follow-up to clearing is recommended. The remainder of the lungs are clear. There is no pleural reaction or effusion. The heart is normal in size. The hilar and mediastinal contours are unremarkable. There are degenerative changes again seen thoracic spine similar to prior studies. XR/XR chest 2V IMPRESSION: -Left upper lobe irregular cavitary mass substantially decreased in size from prior studies. -Recommend continued follow-up to confirm resolution.
[2022-04-01 13:44] LABS: MANUAL DIFF FLAG NO
[2022-04-01 13:51] LABS: Basophils Absolute Auto 0.1 X10*3/uL (0.0-0.2); Basophils Percent Auto 2.4 % (0-2); Eosinophils Absolute Auto 0.8 X10*3/uL (0.0-0.4); Eosinophils Percent Auto 14.4 % (0-4); Hematocrit 43.8 % (42.0-52.0); Hemoglobin 14.9 g/dl (14.0-18.0); Imm Gran Abs Auto 0.03 X10*3/uL (0.00-0.03); Imm Gran Pct Auto 0.5 % (0.0-0.4); Lymphocytes Absolute Auto 1.5 X10*3/uL (1.2-4.9); Lymphocytes Percent Auto 26.3 % (20-40); Mean Corpuscular Volume 85.4 fL (80.0-98.0); Mean Platelet Volume 11.4 fL (9.4-12.4); Monocytes Absolute Auto 0.3 X10*3/uL (0.1-1.2); Monocytes Percent Auto 5.7 % (2-11); Neutrophils Absolute Auto 2.9 x10*3/uL (2.0-8.3); Neutrophils Percent Auto 50.7 % (45-73); Platelet Count 180 X10*3/uL (160-400); Red Blood Count 5.13 X10*6/uL (4.60-5.80); Red Cell Distribution Width 12.7 % (11.0-16.0); White Blood Count 5.8 X10*3/uL (4.8-10.8)
[2022-04-01 14:19] LABS: Alanine Aminotransferase 15 U/L (0-40); Albumin Level 4.1 g/dL (3.5-5.0); Alkaline Phosphatase 73 U/L (39-117); Anion Gap 13 (12-20); Aspartate Amino Transferase 19 U/L (5-37); Bilirubin Total 0.7 mg/dL (0.0-1.0); Blood Urea Nitrogen 11 mg/dL (9-16); C Reactive Protein 0.06 mg/dL (< or = 0.50); Calcium 9.2 mg/dL (8.4-10.2); Carbon Dioxide 27 mmol/L (22-29); Chloride 103 mmol/L (96-108); Estimated Glomerular Filt Rate > 60; Glucose Fasting 75 mg/dL (60-99); Potassium 4.2 mmol/L (3.3-5.1); Sodium 139 mmol/L (135-145); Total Protein 6.4 g/dL (6.5-8.0)
[2022-04-04 00:02] LABS: TS Negative Control Passed; TS Panel A 0; TS Panel B 0; TS Positive Control Passed; TSpotTB Negative (Negative)
== END 2022-04-01 12:45 | disposition home or self-care (01) ==
LOC: HO.HMGCX 12:44
PROVIDERS: PCP Internal Medicine; Visit Provider Internal Medicine
DX: Z11.1 Encounter for screening for respiratory tuberculosis (principal); J18.9 Pneumonia, unspecified organism; R91.8 Other nonspecific abnormal finding of lung field
CPT/HCPCS: 36415; 71046; 80053; 85025; 86140; 86481

== ENCOUNTER 2022-04-04 14:39 | Outpatient (REF) | payer OTHER, SELFPAY | END 2022-04-04 14:40 | disposition home or self-care (01) | LOC: HO.HAP 14:39 | PROVIDERS: Visit Provider Internal Medicine | DX: Z13.89 Encounter for screening for other disorder (principal) ==

== ENCOUNTER 2022-04-17 10:44 | Outpatient (REF) | payer OTHER, SELFPAY ==
--- NOTE | ~2022-04-17 | XR_ITS ---
EXAMINATION: XR CHEST CLINICAL INFORMATION: Pneumonia COMPARISON: Previous chest x-ray most recent 04/01/2022 TECHNIQUE: 2 views of the chest were obtained. FINDINGS: There is no appreciable change in the increased markings seen in the central/suprahilar left upper lobe compared to most recent exam 04/01/2022. The lungs are otherwise clear. There is no pleural effusion or pneumothorax. There are mild degenerative changes of the spine. XR/XR chest 2V IMPRESSION: Similar appearance to the increased markings in the central left upper lobe/suprahilar region from most recent exam 04/01/2022.
[2022-04-17 11:01] LABS: MANUAL DIFF FLAG NO
[2022-04-17 11:50] LABS: Basophils Absolute Auto 0.1 X10*3/uL (0.0-0.2); Basophils Percent Auto 2.1 % (0-2); Eosinophils Absolute Auto 0.5 X10*3/uL (0.0-0.4); Eosinophils Percent Auto 9.4 % (0-4); Hematocrit 46.3 % (42.0-52.0); Hemoglobin 15.8 g/dl (14.0-18.0); Imm Gran Abs Auto 0.04 X10*3/uL (0.00-0.03); Imm Gran Pct Auto 0.7 % (0.0-0.4); Lymphocytes Absolute Auto 1.6 X10*3/uL (1.2-4.9); Lymphocytes Percent Auto 27.9 % (20-40); Mean Corpuscular HGB Conc 34.1 g/dl (31.0-36.0); Mean Corpuscular Hemoglobin 28.9 pg (27.0-33.0); Mean Corpuscular Volume 84.8 fL (80.0-98.0); Mean Platelet Volume 11.3 fL (9.4-12.4); Monocytes Absolute Auto 0.4 X10*3/uL (0.1-1.2); Monocytes Percent Auto 7.2 % (2-11); Neutrophils Percent Auto 52.7 % (45-73); Platelet Count 207 X10*3/uL (160-400); Red Blood Count 5.46 X10*6/uL (4.60-5.80); Red Cell Distribution Width 12.6 % (11.0-16.0); White Blood Count 5.7 X10*3/uL (4.8-10.8)
[2022-04-17 12:45] LABS: Erythrocyte Sedimentation Rate 2 MM/HR (0-15)
[2022-04-17 12:51] LABS: HIV AB/AG Nonreactive (Nonreactive); HIV Num 1 0.07 S/CO (0.00-0.99)
[2022-04-19 14:46] LABS: IgA 196 mg/dL (47-310); IgG 985 mg/dL (600-1640); IgM 56 mg/dL (50-300)
[2022-04-20 00:36] LABS: TS Negative Control Passed; TS Panel A 0; TS Panel B 0; TS Positive Control Passed; TSpotTB Negative (Negative)
[2022-04-27 15:02] LABS: Asperg fumigatus Precip Abs NEGATIVE (NEGATIVE); Micropoly faeni Abs NEGATIVE (NEGATIVE); Pigeon serum Abs NEGATIVE (NEGATIVE); Saccharo pora viridis Abs NEGATIVE (NEGATIVE); Thermo candidus Abs NEGATIVE (NEGATIVE); Thermoa vulgaris #1 NEGATIVE (NEGATIVE)
== END 2022-04-17 10:45 | disposition home or self-care (01) ==
LOC: HO.LAB 10:44
PROVIDERS: PCP Internal Medicine; Visit Provider Hospitalist
DX: Z11.1 Encounter for screening for respiratory tuberculosis (principal); Z11.4 Encounter for screening for human immunodeficiency virus [HIV]; J18.9 Pneumonia, unspecified organism; J98.4 Other disorders of lung; J45.40 Moderate persistent asthma, uncomplicated; R91.8 Other nonspecific abnormal finding of lung field; D72.10 Eosinophilia, unspecified
CPT/HCPCS: 36415; 71046; 82784; 82785; 85025; 85652; 86003; 86331; 86481; 86606; 86609; 87389; 99202

== ENCOUNTER → 2022-04-23 15:10 | Outpatient (BNVA) | payer OTHER, SELFPAY | PROVIDERS: PCP Internal Medicine; Visit Provider Nurse Practitioner Family | DX: G47.00 Insomnia, unspecified (principal); G47.31 Primary central sleep apnea; G47.33 Obstructive sleep apnea (adult) (pediatric) | CPT/HCPCS: 99212 ==

== ENCOUNTER 2022-05-03 10:53 | Outpatient (REF) | payer OTHER, SELFPAY ==
--- NOTE | 2022-05-03 13:50 | PFT_ITS ---
FLOWS: FEV1 104% of predicted at 4.62 L. FVC 103% of predicted at 5.84 L. FEV1 to FVC ratio of 0.79. No bronchodilator response. LUNG VOLUMES: Total lung capacity 103% of predicted at 7.82 L. Residual volume 93% of predicted at 1.99 L. Slow vital capacity 107% of predicted at 5.83 L. Expiratory reserve volume 65% predicted at 1.16 L. Diffusion capacity is normal. IMPRESSION: No obstructive or restrictive ventilatory defect. No bronchodilator response. Essentially normal pulmonary function test. Davon Duran MD AP/MODL / [id number]
== END 2022-05-03 10:54 | disposition home or self-care (01) ==
LOC: HO.RESP 10:53
PROVIDERS: PCP Internal Medicine; Visit Provider Hospitalist
DX: J18.9 Pneumonia, unspecified organism (principal); J98.4 Other disorders of lung
CPT/HCPCS: 94060; 94727; 94729

== ENCOUNTER → 2022-05-20 13:47 | Outpatient (BNVA) | payer OTHER, SELFPAY | PROVIDERS: PCP Internal Medicine; Visit Provider Hospitalist | DX: J18.9 Pneumonia, unspecified organism (principal); J98.4 Other disorders of lung; J44.9 Chronic obstructive pulmonary disease, unspecified; R91.8 Other nonspecific abnormal finding of lung field; J45.40 Moderate persistent asthma, uncomplicated; D72.10 Eosinophilia, unspecified; J30.9 Allergic rhinitis, unspecified | CPT/HCPCS: 99212 ==

== ENCOUNTER 2022-08-27 13:45 | Outpatient (REF) | payer OTHER, SELFPAY | END 2022-08-27 13:46 | disposition home or self-care (01) | LOC: HO.XRAY 13:45 | PROVIDERS: PCP Internal Medicine; Visit Provider Hospitalist | DX: J18.9 Pneumonia, unspecified organism (principal); J98.4 Other disorders of lung; D72.10 Eosinophilia, unspecified; J30.9 Allergic rhinitis, unspecified; R91.8 Other nonspecific abnormal finding of lung field | CPT/HCPCS: 99212 ==

== ENCOUNTER 2022-10-01 16:42 | Outpatient (REF) | payer OTHER, SELFPAY ==
--- NOTE | ~2022-10-01 | CT_ITS ---
EXAMINATION: CT CHEST WITHOUT CONTRAST CLINICAL INFORMATION: Pneumonia COMPARISON: Chest x-ray 04/17/2022 TECHNIQUE: Multidetector volumetric CT imaging of the chest was done. Axial MIP volume rendering provided. Sagittal and coronal reformatted images were obtained. This CT examination was performed using dose optimization techniques as appropriate, variously including the following: *Automated exposure control *Adjustment of mA and/or kV according to patient size (this includes techniques or standardized protocols for targeted exams where dose is matched to indication/reason for exam; i.e. extremities or head) *Use of iterative reconstruction technique DLP: 169 mGy-cm FINDINGS: PROTOTYPE MACHINE OPERATOR: Unremarkable chest exam. LUNGS: The lungs are well-expanded with patchy ill-defined opacity, left upper lobe anterior segment axial image 24/. No pulmonary nodules, mass or consolidation seen. MEDIASTINUM: The thyroid lobes are symmetric and normal. The central trachea and the bronchi are widely patent. Heart size and the great vessels are normal caliber. No pericardial effusion seen. No abnormal size mediastinal or hilar lymph nodes seen. CORONARY ARTERY CALCIFICATION: None visualized on this study. PLEURA: There is no pleural effusion or thickening. AXILLA: Small shotty lymph nodes are seen in the axilla. The largest left axillary lymph node measures 1.4 x 0.6 cm. It has central lucency and appears benign. UPPER ABDOMEN: Multiple low-density liver lesions are seen. They measure fluid density. No intrahepatic ductal dilatation seen. There is no hepatomegaly. Visualized gallbladder, pancreas and spleen are unremarkable. OSSEOUS STRUCTURES: No aggressive lytic or sclerotic process seen. There is mild ventral spondylosis with degenerative disc changes. CT/CT chest wo IV con IMPRESSION: 1. No acute process seen in the chest. 2. Minimal patchy opacity left upper lobe anterior segment. Likely old scar from pneumonia. 3. No abnormal mediastinal or axillary lymph nodes seen. 4. Multiple liver cysts. Fleischner guidelines were followed.
== END 2022-10-01 16:43 | disposition home or self-care (01) ==
LOC: HO.CT 16:42
PROVIDERS: PCP Internal Medicine; Visit Provider Hospitalist
DX: J18.9 Pneumonia, unspecified organism (principal); J98.4 Other disorders of lung; R91.8 Other nonspecific abnormal finding of lung field
CPT/HCPCS: 71250

== ENCOUNTER 2022-12-06 15:38 | Outpatient (REF) | payer OTHER, SELFPAY ==
--- NOTE | 2022-12-06 16:26 | MHC.AU.HA3 ---
Hearing Instrument Follow-Up- Binaural Date of Visit: 12/06/22 Right Ear: Make, Model, Color, Serial Number: Phonak Audeo P70-R, #[id number] Commodities Clerk Repair Warranty: 05/22/2025 Commodities Clerk Loss and Damage Warranty: 05/22/2025 Battery Size: Rechargeable Change Analyst/Slim Tube: 2M Earmold/Dome/CShell/SlimTip:Medium Open Type of Wax Guard: CeruShield Dispensed By: [facility] Date of Fittin03/07/2022 Left Ear: Make, Model, Color, Serial Number: Phonak Homeeo P70-R, #[id number] Commodities Clerk Repair Warranty: 05/22/2025 Commodities Clerk Loss and Damage Warranty: 05/22/2025 Battery Size: Rechargeable Change Analyst/Slim Tube: 2M Earmold/Dome/CShell/SlimTip: Medium Open Type of Wax Guard: CeruShield Dispensed By: [facility] Date of Fittin03/07/2022 Follow-Up Summary: Patient reports that his right hearing aid suddenly stopped charging. He is unsure if this is due to the agriculture inspector or the hearing aid itself. There was rust noted on the battery contacts inside the agriculture inspector. He was given a replacement agriculture inspector from stock (under warranty). Both hearing aids were placed in the electric dehumidifer for several minutes as a precaution due to the rust noted in the agriculture inspector. The right hearing aid will not agriculture inspector in his agriculture inspector or our stock chargers. The right hearing aid was sent to [facility] for repair. He was provided with a loaner Phonak Audeo P70-R Trial (#[id number]). His right milk inspector and dome were placed on the loaner instrument. Recommendations: Patient will be contacted when materials have arrived. Diagnosis Code(s): Primary Diagnosis: H90.3 Bilateral Sensorineural Hearing Loss Secondary Diagnosis: H93.13 Tinnitus, Bilateral Signature: Provider: Jess Mathis, [facility]
== END 2022-12-06 15:39 | disposition home or self-care (01) ==
LOC: HO.HAP 15:38
PROVIDERS: Visit Provider Internal Medicine
DX: Z13.89 Encounter for screening for other disorder (principal)

== ENCOUNTER 2022-12-18 14:15 | Outpatient (REF) | payer SELFPAY ==
--- NOTE | 2022-12-18 15:20 | MHC.AU.HA3 ---
Hearing Instrument Follow-Up- Binaural Date of Visit: 12/18/22 Right Ear: Make, Model, Color, Serial Number: Wendy Bhateo P70-R, #[id number] Welding Process Specialist Repair Warranty: 05/22/2025 Welding Process Specialist Loss and Damage Warranty: 05/22/2025 Battery Size: Rechargeable Agronomy Teacher/Slim Tube: 2M Earmold/Dome/CShell/SlimTip:Medium Open Type of Wax Guard: CeruShield Dispensed By: [facility] Date of Fittin03/07/2022 Left Ear: Make, Model, Color, Serial Number: Wendy Bhateo P70-R, #[id number] Welding Process Specialist Repair Warranty: 05/22/2025 Welding Process Specialist Loss and Damage Warranty: 05/22/2025 Battery Size: Rechargeable Agronomy Teacher/Slim Tube: 2M Earmold/Dome/CShell/SlimTip: Medium Open Type of Wax Guard: CeruShield Dispensed By: [facility] Date of Fittin03/07/2022 Follow-Up Summary: Patient arrived to warp picker his repaired right hearing aid. He returned the loaner in good condition. The right and left hearing aids were paired back together. Also, color laboratory technician replaced on the left hearing aid and requested new roll picker, as his had rust on the contacts. Recommendations: Patient will be contacted when the replacement roll picker arrives (does not need appointment- can just warp picker). The replacement color laboratory technician that was requested can be put back into stock. Signature: Provider: Jess Mathis, [facility]
== END 2022-12-18 14:16 | disposition home or self-care (01) ==
LOC: HO.HAP 14:15
PROVIDERS: Visit Provider Internal Medicine
DX: Z13.89 Encounter for screening for other disorder (principal)

== ENCOUNTER 2023-01-29 11:35 | Outpatient (REF) | payer OTHER, SELFPAY | END 2023-01-29 11:36 | disposition home or self-care (01) | LOC: HO.HAP 11:35 | PROVIDERS: Visit Provider Internal Medicine | DX: Z13.89 Encounter for screening for other disorder (principal) ==

== ENCOUNTER 2023-03-14 13:27 | Outpatient (AMB) | payer OTHER, SELFPAY ==
[2023-03-14 13:57] VITALS: BP 128/74; PULSE 91; O2SAT 98; BMI 25.8
--- NOTE | 2023-03-14 13:57 | MHC.PC.OV ---
Vital Signs 03/14/23 13:57 Height 6 ft 1 in Weight 195 lb 4 oz BMI 25.8 BP 128/74 Blood Pressure Location Rt brachial Position Sitting Pulse 91 Pulse Source Pulse Oximeter Pulse Oximetry (%) 98 Oxygen Delivery Method Room Air Intake Visit Reasons: PE Intake Note: Pt is here today for PE. Allergies doxycycline Allergy (Verified 03/14/23 14:14) burning skin sensation Medication List - Last Reconciled 03/14/23 by Mariola Cifuentes MD albuterol sulfate 90 mcg/actuation 2 inhalations inhalation Q6H PRN 30 days azelastine 2 sprays intranasal BID 30 days budesonide-formoterol 160-4.5 mcg/actuation (Symbicort) 2 puffs inhalation BID 30 days buprenorphine-naloxone 2-0.5 mg (Suboxone) 2 mg sublingual DAILY clotrimazole 1% 1 appl topical BID 2 weeks ibuprofen 600 mg PO Q6H PRN pseudoephedrine HCl ER 120 mg PO Q12H 30 days zolpidem (Ambien) 20 mg (2 x 10 mg) PO BEDTIME PRN 30 days Tobacco use date assessed: 03/14/23 Dental Screening Dental Screen Date: 03/14/23 Did you have a dental visit in the last 12 months?: Yes Did you have a dental problem in the last 6 months where you did not have access to dental care?: No Was dental information given to patient?: Patient has dentist HPI PE HPI Details Pt presents for PE. [facility] Medical History (Updated 03/14/23 @ 14:35 by Mariola Cifuentes MD) Annual physical exam Asthma Cavitary pneumonia Chronic allergic rhinitis Eosinophilia Hearing loss Hearing loss Insomnia Opiate abuse, episodic Pulmonary nodules Tinea corporis Tinnitus Surgical History Hx of appendectomy No pertinent past surgical history Family History Father Lymphoma Mother Breast cancer Social History Household Members Other:: father Housing: House Alcohol intake: current Alcohol intake frequency: holidays/special occasions only Alcohol type: hard liquor Patient Tobacco Use Status: Never used Tobacco e-Cigarette/Vaping Use: Never Used Current occupational status: employed 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 16808 - PHQ-9 Billing: Patient declined-do not bill Source: Developed by Drs. Gilberto Pradhan, Tabby Corbin, Manish Conteh and colleagues, with an educational chanel from [employer]. Thrive Questionnaire Date Thrive assessed: 03/14/23 I am a: Patient What is your living situation today?: I have a steady place to live Within the past 12 months, did the food you bought not last and you didn't have the money to get more?: Never true Within the past 12 months, did you worry whether your food would run out before you got money to buy more?: Never true Do you have trouble paying for medicines?: No Do you have trouble getting transportation to medical appointments?: No Do you have trouble paying your heating and electricity bill?: No Do you have trouble taking care of your child, family member or friend?: No Do you have trouble with day-to-day activities such as bathing, preparing meals, shopping, managing finances, etc.?: No Are you currently unemployed and looking for a job?: No Are you interested in more education?: No AUDIT C Alcohol Use Questionnaire (AUDIT-C) 1. How often do you have a drink containing alcohol?: 2-4 times a month 2. How many drinks containing alcohol do you have on a typical day when you are drinking?: 1 or 2 3. How often do you have six or more drinks on one occasion?: Never Total Score: 2 Score Reviewed/Action Taken: Yes KESHAV-7 AMB Questionnaire KESHAV-7 Date KESHAV - 7 assessed: 03/14/23 Source: Developed by Drs. Gilberto Pradhan, Tabby Corbin, Manish Conteh and colleagues, with an educational chanel from [employer]. KESHAV-7 Assessment Billing KESHAV-7 Assessment Tool: pt declined-do not bill Review of Systems Const All systems reviewed & are unremarkable except as noted in HPI and below Reports no additional complaints Eyes Reports no additional complaints ENT Reports no additional complaints Card Reports no additional complaints Resp Reports no additional complaints GI Reports no additional complaints Reports no additional complaints Physical exam (Primary Care) Vital Signs: Last Vital Signs Pulse 91 03/14/23 13:57 BP 128/74 03/14/23 13:57 Pulse Ox 98 03/14/23 13:57 Oxygen Delivery Method Room Air 03/14/23 13:57 BMI result Body Mass Index 25.8 Tobacco/Smoking Status: Tobacco use Status Tobacco use date assessed 03/14/23 03/14/23 13:58 Patient Tobacco Use Status Never used Tobacco 03/14/23 13:58 e-Cigarette/Vaping Use Never Used 03/14/23 13:58 Thrive Assessment: Date of Thrive Assessment Date Thrive assessed 03/14/23 03/14/23 14:16 Const General: no acute distress HENMT Ears: hearing grossly normal bilaterally Mouth: Normal oral and palatal mucosa present Throat: Yes posterior oropharynx normal Eyes General: appearance normal, both eyes and all related structures Neck Neck: Yes supple Resp Effort & Inspection: normal respiratory effort Auscultation: clear to auscultation bilaterally Cardio Rhythm: regular rhythm Heart sounds: S1 normal heart sound present and S2 normal heart sound present GI Inspection: Yes normal to inspection Palpation (GI): Soft to palpation Percussion: Yes normal to percussion Assessment and Plan Assessment & Plan (1) Annual physical exam: Code(s): Z. - Encounter for general adult medical examination without abnormal findings Plan: well balanced diet, exercise, return for labs, refer to GI for colonoscopy (2) Asthma: Comment: MILD , Proair 1-2 a month Code(s): J45.909 - Unspecified asthma, uncomplicated Qualifiers: Asthma severity: moderate Asthma persistence: persistent Asthma complication type: uncomplicated Qualified Code(s): J45.40 - Moderate persistent asthma, uncomplicated Orders: Orders Comprehensive [place]. Panel Fast Today Z00.00 - Encounter for general adult medical examination without abnormal findings Lipid Panel Today Z00.00 - Encounter for general adult medical examination without abnormal findings Complete Blood Count Auto Diff Today Z00.00 - Encounter for general adult medical examination without abnormal findings UA w Microscopic Today Z00.00 - Encounter for general adult medical examination without abnormal findings T Spot TB Today Z00.00 - Encounter for general adult medical examination without abnormal findings Referrals Gastroenterology Referral Z00.00 - Encounter for general adult medical examination without abnormal findings Medications: Discontinued budesonide-formoterol 160-4.5 mcg/actuation (Symbicort) Discontinued Reason: Doctor's Order 2 puffs inhalation BID 30 days 10.2 grams 11RF J44.9 - Chronic obstructive pulmonary disease, unspecified azelastine administer into each nostril Discontinued Reason: Doctor's Order 2 sprays intranasal BID 30 days 30 mL 6RF Coding Level of Care Code Est Pt Prev Care 40-64y(63642) Diagnoses Annual physical exam Z00.00 Asthma J45.40 Asthma severity: moderate Asthma persistence: persistent Asthma complication type: uncomplicated
== END 2023-03-14 14:38 | disposition home or self-care (01) ==
PROVIDERS: PCP Internal Medicine; Visit Provider Internal Medicine
DX: Z00.00 Encounter for general adult medical examination without abnormal findings (principal); J45.40 Moderate persistent asthma, uncomplicated
CPT/HCPCS: 99396

== ENCOUNTER 2023-08-02 14:21 | Outpatient (AMB) | payer OTHER, SELFPAY ==
[2023-08-02 14:27] VITALS: BP 104/72; PULSE 87; TEMP 37; O2SAT 99; BMI 25.7
--- NOTE | 2023-08-02 14:27 | AM.OFFWIN_ITS ---
Intake Vital Signs 08/02/23 14:27 Height 6 ft 1 in Weight 195 lb BMI 25.7 BP 104/72 Blood Pressure Location Lt brachial Position Sitting Pulse 87 Pulse Source Pulse Oximeter Temp 98.6 F Temp Source Oral Pulse Oximetry (%) 99 Oxygen Delivery Method Room Air Intake Visit Reasons: EP, dog bite right hand Intake Note: Pt is here today c/o dog bite Rt hand (his dog) x9days ago Patient Tobacco Use Status: Never used Tobacco Allergies doxycycline Allergy (Verified 08/02/23 14:28) burning skin sensation HPI HPI Comments History of Present Illness Details 48-year-old male that by his dog 6 days ago on the hand presents for concern of infection. Denies any fevers chills drainage redness of the area. Does have wood cramping sensation in the lateral aspect of his hand. [facility] Medical History (Updated 03/14/23 @ 14:35 by Mariola Cifuentes MD) Chronic allergic rhinitis Pulmonary nodules Eosinophilia Asthma Cavitary pneumonia Hearing loss Annual physical exam Opiate abuse, episodic Tinea corporis Hearing loss Tinnitus Insomnia Surgical History Hx of appendectomy No pertinent past surgical history Family History Father Lymphoma Mother Breast cancer Social History Household Members Other:: father Housing: House Alcohol intake: current Alcohol intake frequency: holidays/special occasions only Alcohol type: hard liquor Patient Tobacco Use Status: Never used Tobacco e-Cigarette/Vaping Use: Never Used Current occupational status: employed 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 Cognitive needs: No Hearing needs: No Vision needs: No Review of Systems Skin/Breast Details: Puncture wound lateral aspect of the right thumb Physical Exam Vital Signs: Last Vital Signs Temp 98.6 F 08/02/23 14:27 Pulse 87 08/02/23 14:27 BP 104/72 08/02/23 14:27 Pulse Ox 99 08/02/23 14:27 Oxygen Delivery Method Room Air 08/02/23 14:27 BMI result Body Mass Index 25.7 Const General: cooperative, healthy appearing, no acute distress and alert Orientation/consciousness: patient oriented x3 Limitations: no limitations HEENT Head: Yes normal to inspection Ears: hearing grossly normal bilaterally General nose exam: Normal external nose present Resp Effort & Inspection: normal respiratory effort and able to speak in complete sentences Cardio Rate: regular rate Skin General skin exam: no rashes or lesions noted Neuro General: patient oriented x3 Extrem Other: Range of motion of the hand intact puncture wound right lateral aspect of the right thumb no overlying erythema swelling or warmth General: Yes normal to inspection Assessment & Plan Assessment & Plan (1) Dog bite: Code(s): W54.0XXA - Bitten by dog, initial encounter Qualifiers: Encounter type: initial encounter Qualified Code(s): W54.0XXA - Bitten by dog, initial encounter Plan: Shared decision-making occurred with the patient patient shows no evidence or sign of infection in his 6 days out. Low suspicion at this time. Will prescribe antibiotics should the patient decide to take them. Discharge instructions, follow up and treatment are discussed with patient in my usual fashion. Alternatives in treatment are also discussed. The patient will return for worsening symptoms or as needed. Advised that any labs/imaging ordered will be followed up on and contact made if further treatment needed. Counseled that patient's condition may require further evaluation and/or treatment. Symptoms of concern for worsening disorder discussed in detail in my customary manner. Patient does verbalize understanding of the plan, there are no apparent barriers to communication. The patient is given the opportunity to ask questions and have them answered to his/her satisfaction Medications: New amoxicillin-pot clavulanate 875-125 mg 1 tab PO BID 20 tabs 0RF 10 days Coding Level of Care Code New Pt Level 3 (43132) Diagnoses Dog bite, initial encounter W54.0XXA Encounter type: initial encounter
== END 2023-08-02 14:44 | disposition home or self-care (01) ==
PROVIDERS: PCP Internal Medicine; Visit Provider Physician Assistant
DX: S61.031A Puncture wound without foreign body of right thumb without damage to nail, initial encounter (principal); W54.0XXA Bitten by dog, initial encounter
CPT/HCPCS: 99051; 99203

== ENCOUNTER 2023-08-27 12:12 | Outpatient (AMB) | payer OTHER, SELFPAY ==
[2023-08-27 13:18] VITALS: BP 120/80; PULSE 99; TEMP 36.3; O2SAT 96; BMI 26.3
--- NOTE | 2023-08-27 13:18 | MHC.OFFWIV ---
Intake Vital Signs 08/27/23 13:18 Height 6 ft 1 in Weight 199 lb BMI 26.3 BP 120/80 Blood Pressure Location Lt brachial Position Sitting Pulse 99 Pulse Source Pulse Oximeter Temp 97.4 F Temp Source Temporal Artery Scan Pulse Oximetry (%) 96 Oxygen Delivery Method Room Air Intake Visit Reasons: EST/std test([phone]) Intake Note: pt is here today for STD test 2 days ago Patient Tobacco Use Status: Never used Tobacco Allergies doxycycline Allergy (Verified 08/27/23 14:02) burning skin sensation Medication List - Last Reconciled 08/27/23 by Manuel Moody MD albuterol sulfate 90 mcg/actuation 2 inhalations inhalation Q6H PRN 30 days amoxicillin-pot clavulanate 875-125 mg 1 tab PO BID 10 days buprenorphine-naloxone 2-0.5 mg (Suboxone) 2 mg sublingual DAILY zolpidem (Ambien) 20 mg (2 x 10 mg) PO BEDTIME PRN 30 days Do you need a note to return to daycare/school/sports/work: No HPI EST/std test([phone]) HPI Details 48-year-old male presents to the office for a sick visit. Patient reports that he has been in a new relationship for the past 5 weeks. He is heterosexual, single partner for the past 5 weeks and is having unprotected sex. Reporting discharge from his penis at times with occasional burning sensation. No fevers or chills. [facility] Medical History (Updated 03/14/23 @ 14:35 by Mariola Cifuentes MD) Chronic allergic rhinitis Pulmonary nodules Eosinophilia Asthma Cavitary pneumonia Hearing loss Annual physical exam Opiate abuse, episodic Tinea corporis Hearing loss Tinnitus Insomnia Surgical History Hx of appendectomy No pertinent past surgical history Family History Father Lymphoma Mother Breast cancer Social History Household Members Other:: father Housing: House Alcohol intake: current Alcohol intake frequency: holidays/special occasions only Alcohol type: hard liquor Patient Tobacco Use Status: Never used Tobacco e-Cigarette/Vaping Use: Never Used Current occupational status: employed 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 Cognitive needs: No Hearing needs: No Vision needs: No Physical Exam Vital Signs: Last Vital Signs Temp 97.4 F 08/27/23 13:18 Pulse 99 08/27/23 13:18 BP 120/80 08/27/23 13:18 Pulse Ox 96 08/27/23 13:18 Oxygen Delivery Method Room Air 08/27/23 13:18 BMI result Body Mass Index 26.3 Const General: cooperative and healthy appearing Nutritional Appearance: well nourished Orientation/consciousness: patient oriented x3 Limitations: no limitations HEENT Head: Yes normal to inspection Eyes General: appearance normal, both eyes and all related structures Neck Neck: Yes normal visual inspection Chest Chest palpation & inspection: normal palpation of entire chest wall Resp Effort & Inspection: normal respiratory effort Neuro General: patient oriented x3 Results AMB Urinalysis, Automated UA Leukoctes 15 Daniel/uL Last Edit by Abiel Waddell CMA on 08/27/23 13:43 UA Nitrite Negative Last Edit by Abiel Waddell CMA on 08/27/23 13:43 UA Urobilinogen 0.2 mg/dL Last Edit by Abiel Waddell CMA on 08/27/23 13:43 UA Protein 0 mg/dL Last Edit by Abiel Waddell CMA on 08/27/23 13:43 UA pH 7.0 Last Edit by Abiel Waddell CMA on 08/27/23 13:43 UA Blood 0 Giovanni/uL Last Edit by Abiel Waddell CMA on 08/27/23 13:43 UA Specific [place] 1.005 Last Edit by Abiel Waddell CMA on 08/27/23 13:43 UA Ketone Negative Last Edit by Abiel Waddell CMA on 08/27/23 13:43 UA Bilirubin 0 mg/dL Last Edit by Abiel Waddell CMA on 08/27/23 13:43 UA Glucose 0 mg/dL Last Edit by Abiel Waddell CMA on 08/27/23 13:43 Results Reviewed Results Reviewed: Laboratory Last Values Urine pH (Auto) 7.0 08/27/23 13:42 Specific [place] (Auto) 1.005 01/03/24 13:42 Urine Protein (Auto) 0 mg/dL 08/27/23 13:42 Glucose (UA)(Auto) 0 mg/dL 08/27/23 13:42 Urine Ketones (Auto) Negative 08/27/23 13:42 Urine Blood (Auto) 0 Giovanni/uL 08/27/23 13:42 Urine Nitrite (Auto) Negative 08/27/23 13:42 Urine Bilirubin (Auto) 0 mg/dL 08/27/23 13:42 Urine Urobilinogen (Auto) 0.2 mg/dL 08/27/23 13:42 Leukocyte Esterase (Auto) 15 Daniel/uL 08/27/23 13:42 Assessment & Plan Assessment & Plan (1) Urethritis: Code(s): N34.2 - Other urethritis Plan: Urine for chlamydia and gonorrhea will be tested. Blood for syphilis and HIV to be tested. Patient will be treated with azithromycin and ciprofloxacin. Orders: Orders AMB Urinalysis Automated Today Z13.9 - Encounter for screening, unspecified Syphilis Screen Today Z11.9 - Encounter for screening for infectious and parasitic diseases, unspecified HIV Ab/Ag Today Z11.9 - Encounter for screening for infectious and parasitic diseases, unspecified Coding Level of Care Code Est Pt Level 3 (63252) Diagnoses Urethritis N34.2
== END 2023-08-27 14:17 | disposition home or self-care (01) ==
PROVIDERS: PCP Internal Medicine; Visit Provider Internal Medicine
DX: N34.2 Other urethritis (principal)
CPT/HCPCS: 81003; 99213

== ENCOUNTER 2023-08-27 14:02 | Outpatient (REF) | payer OTHER, SELFPAY | END 2023-08-27 14:03 | disposition home or self-care (01) | LOC: HO.HMGCLDS 14:02 | PROVIDERS: Visit Provider Internal Medicine | DX: Z11.9 Encounter for screening for infectious and parasitic diseases, unspecified (principal) | CPT/HCPCS: 0353U; 36415; 86780; 87389 ==

== ENCOUNTER 2023-09-26 15:11 | Outpatient (AMB) | payer OTHER, SELFPAY ==
[2023-09-26 15:19] VITALS: BP 120/72; PULSE 83; TEMP 36.2; O2SAT 99; BMI 26.4
--- NOTE | 2023-09-26 15:19 | AM.OFFWIN_ITS ---
Intake Vital Signs 09/26/23 15:19 Height 6 ft 1 in Weight 200 lb BMI 26.4 BP 120/72 Blood Pressure Location Lt brachial Position Sitting Pulse 83 Pulse Source Pulse Oximeter Temp 97.2 F Temp Source Temporal Artery Scan Pulse Oximetry (%) 99 Oxygen Delivery Method Room Air Intake Visit Reasons: EP UTI Intake Note: pt is here today for UTI started 1 month ago Patient Tobacco Use Status: Never used Tobacco Allergies doxycycline Allergy (Verified 09/26/23 15:22) burning skin sensation Do you need a note to return to daycare/school/sports/work: No HPI HPI Comments History of Present Illness Details 48 y/o male presents to walk in clinic w ith c/o urinary symptoms. Re ports some burning with urination. C/o lower abdominal cramping. Denies fevers, chills, nausea or vomiting. Sexually active with 1 female partner, unprotected. New relationship - 3 months. He has had symptoms on/off for 1 month now. He was tested for STI and UTI 2 weeks ago, with negative results. Denies hematuria, discharge or weird rashes. He though c/o Ezcema on both of his Caicedo. H/o Eczema. [facility] Medical History (Updated 03/14/23 @ 14:35 by Mariola Cifuentes MD) Chronic allergic rhinitis Pulmonary nodules Eosinophilia Asthma Cavitary pneumonia Hearing loss Annual physical exam Opiate abuse, episodic Tinea corporis Hearing loss Tinnitus Insomnia Surgical History Hx of appendectomy No pertinent past surgical history Family History Father Lymphoma Mother Breast cancer Social History Household Members Other:: father Housing: House Alcohol intake: current Alcohol intake frequency: holidays/special occasions only Alcohol type: hard liquor Patient Tobacco Use Status: Never used Tobacco e-Cigarette/Vaping Use: Never Used Current occupational status: employed 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 Cognitive needs: No Hearing needs: No Vision needs: No Review of Systems Const All systems reviewed & are unremarkable except as noted in HPI and below Physical Exam Vital Signs: Last Vital Signs Temp 97.2 F 09/26/23 15:19 Pulse 83 09/26/23 15:19 BP 120/72 09/26/23 15:19 Pulse Ox 99 09/26/23 15:19 Oxygen Delivery Method Room Air 09/26/23 15:19 BMI result Body Mass Index 26.4 Const General: comfortable and no acute distress Orientation/consciousness: patient oriented x3 Resp Effort & Inspection: normal respiratory effort Auscultation: clear to auscultation bilaterally Cardio Rate: regular rate Rhythm: regular rhythm GI Other: Mild tenderness suprapubic region. Soft to touch. No organomally. Neuro General: patient oriented x3 Gait exam (Neuro): Normal gait present Psych Appearance: grossly normal Speech and movement: Normal speech and movement present Affect: normal affect Attitude: cooperative Results AMB Urinalysis, Automated UA Leukoctes 15 Daniel/uL Last Edit by Abiel Waddell CMA on 09/26/23 15:47 UA Nitrite Negative Last Edit by Abiel Waddell CMA on 09/26/23 15:47 UA Urobilinogen 0.2 mg/dL Last Edit by Abiel Waddell CMA on 09/26/23 15 :47 UA Protein 0 mg/dL Last Edit by Abiel Waddell CMA on 09/26/23 15:47 UA pH 6.0 Last Edit by Abiel Waddell CMA on 09/26/23 15:47 UA Blood 0 Giovanni/uL Last Edit by bAiel Waddell CMA on 09/26/23 15:47 UA Specific [place] 1.015 Last Edit by Abiel Waddell CMA on 09/26/23 15:47 UA Ketone Negative Last Edit by Abiel Waddell CMA on 09/26/23 15:47 UA Bilirubin 0 mg/dL Last Edit by Abiel Waddell CMA on 09/26/23 15:47 UA Glucose 0 mg/dL Last Edit by Abiel Waddell CMA on 09/26/23 15:47 Results Reviewed Results Reviewed: Laboratory Last Values Urine pH (Auto) 6.0 09/26/23 15:46 Specific [place] (Auto) 1.015 09/26/23 15:46 Urine Protein (Auto) 0 mg/dL 09/26/23 15:46 Glucose (UA)(Auto) 0 mg/dL 09/26/23 15:46 Urine Ketones (Auto) Negative 09/26/23 15:46 Urine Blood (Auto) 0 Giovanni/uL 09/26/23 15:46 Urine Nitrite (Auto) Negative 09/26/23 15:46 Urine Bilirubin (Auto) 0 mg/dL 09/26/23 15:46 Urine Urobilinogen (Auto) 0.2 mg/dL 09/26/23 15:46 Leukocyte Esterase (Auto) 15 Daniel/uL 09/26/23 15:46 Assessment & Plan Assessment & Plan (1) UTI symptoms: Code(s): R39.9 - Unspecified symptoms and signs involving the genitourinary system Plan: - R/o STIs - Pos Leuko - Will start Cipro today. - Hydrate with plenty of water - Abstain from sex for 7 days (2) Rash and nonspecific skin eruption: Code(s): R21 - Rash and other nonspecific skin eruption Plan: - Mild topical steroid Orders: Orders AMB Urinalysis Automated Today Z13.9 - Encounter for screening, unspecified CT NG by PCR Today Z72.51 - High risk heterosexual behavior Urine Culture Today R39.9 - Unspecified symptoms and signs involving the genitourinary system Medications: New triamcinolone acetonide 0.1% 1 appl topical BID 30 grams 0RF R21 - Rash and other nonspecific skin eruption ciprofloxacin HCl 500 mg PO BID 14 tabs 0RF 7 days R39.9 - Unspecified symptoms and signs involving the genitourinary system Coding Level of Care Code Est Pt Level 3 (68554) Diagnoses UTI symptoms R39.9 Rash and nonspecific skin eruption R21 Time Spent (min) 15
== END 2023-09-26 16:53 | disposition home or self-care (01) ==
PROVIDERS: PCP Internal Medicine; Visit Provider Nurse Practitioner Family
DX: R39.9 Unspecified symptoms and signs involving the genitourinary system (principal); R21 Rash and other nonspecific skin eruption; R30.9 Painful micturition, unspecified
CPT/HCPCS: 81003; 99213

== ENCOUNTER 2023-09-26 16:04 | Outpatient (REF) | payer OTHER, SELFPAY ==
[2023-09-27 14:51] LABS: CT PCR NOT DETECTED (Not Detect.); NG PCR NOT DETECTED (Not Detect.)
== END 2023-09-26 16:05 | disposition home or self-care (01) ==
LOC: HO.LAB 16:04
PROVIDERS: Visit Provider Nurse Practitioner Family
DX: R39.9 Unspecified symptoms and signs involving the genitourinary system (principal)
CPT/HCPCS: 0353U; 87086

== ENCOUNTER 2023-11-07 15:03 | Outpatient (AMB) | payer OTHER, SELFPAY ==
[2023-11-07 15:17] VITALS: BP 100/70; PULSE 67; O2SAT 97; BMI 26.4
--- NOTE | 2023-11-07 15:17 | MHC.OFFWIV ---
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 Pt believes he might have Food Poisoning - He went hiking Wed and had Sausage and cheese on [place] prior to symptoms. Reports feeling very weak, tired, body aches and headaches. He has not been able to keep anything inside. Denies fevers, chills or diarrhea. [facility] Medical History (Updated 03/14/23 @ 14:35 by Mariola Cifuentes MD) Chronic allergic rhinitis Pulmonary nodules Eosinophilia Asthma Cavitary pneumonia Hearing loss Annual physical exam Opiate abuse, episodic Tinea corporis Hearing loss Tinnitus Insomnia Surgical History Hx of appendectomy No pertinent past surgical history Family History Father Lymphoma Mother Breast cancer Social History Household Members Other:: father Housing: House Alcohol intake: current Alcohol intake frequency: holidays/special occasions only Alcohol type: hard liquor Patient Tobacco Use Status: Never used Tobacco e-Cigarette/Vaping Use: Never Used Current occupational status: employed 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 Cognitive needs: No Hearing needs: No Vision needs: No Review of Systems Const All systems reviewed & are unremarkable except as noted in HPI and below Physical Exam Vital Signs: Last Vital Signs Pulse 67 11/07/23 15:17 BP 100/70 11/07/23 15:17 Pulse Ox 97 11/07/23 15:17 Oxygen Delivery Method Room Air 11/07/23 15:17 BMI result Body Mass Index 26.4 Const General: no acute distress and ill appearing Orientation/consciousness: patient oriented x3 HEENT Head: Yes normocephalic Ears: external ears normal and TM's normal bilaterally General nose exam: Normal nasal mucous membranes and turbinates present Face and sinus: Yes sinuses nontender Mouth: moist mucous membranes Throat: Yes posterior oropharynx normal Resp Effort & Inspection: normal respiratory effort and able to speak in complete sentences Auscultation: clear to auscultation bilaterally, no crackles, no rales, no rhonchi and no wheezes Cardio Rate: regular rate Rhythm: regular rhythm GI Inspection: Yes normal to inspection Palpation (GI): Soft to palpation, not firm, Tenderness to palpation present (GI) in the LLQ and suprapubicly, no guarding, not rigid and No hepatosplenomegaly present Auscultation: normal bowel sounds Rectal Exam - Male: Yes deferred Neuro General: patient oriented x3, gait normal and moves all extremities Psych Speech and movement: Normal speech and movement present Attitude: cooperative Assessment & Plan Assessment & Plan (1) Constipation: Code(s): K59.00 - Constipation, unspecified Qualifiers: Constipation type: slow transit constipation Qualified Code(s): K59.01 - Slow transit constipation Plan: - Increase Fiber in Diet - Drink plenty of water (2) Nausea and vomiting: Code(s): R11.2 - Nausea with vomiting, unspecified Qualifiers: Vomiting type: unspecified Qualified Code(s): R11.2 - Nausea with vomiting, unspecified Plan: - BLAND diet - Avoid spicy, oily and greasy foods. - Hydrate well and get some rest. Orders: Orders SARS-CoV2/FLU/RSV Today R11.2 - Nausea with vomiting, unspecified Medications: New metoclopramide HCl (Reglan) 10 mg PO Q6H PRN 30 tabs 0RF nausea and vomiting R11.2 - Nausea with vomiting, unspecified ondansetron 8 mg PO Q8H 20 tabs 0RF R11.2 - Nausea with vomiting, unspecified sennosides-docusate sodium 8.6-50 mg (Senokot-S) 1 tab PO BEDTIME 30 tabs 0RF K59.01 - Slow transit constipation Coding Level of Care Code Est Pt Level 3 (25038) Diagnoses Slow transit constipation K59.01 Constipation type: slow transit constipation Nausea and vomiting, unspecified vomiting type R11.2 Vomiting type: unspecified Time Spent (min) 15
== END 2023-11-07 16:10 | disposition home or self-care (01) ==
PROVIDERS: PCP Internal Medicine; Visit Provider Nurse Practitioner Family
DX: K59.01 Slow transit constipation (principal); R11.2 Nausea with vomiting, unspecified
CPT/HCPCS: 99213

== ENCOUNTER 2023-11-07 15:49 | Outpatient (REF) | payer OTHER, SELFPAY ==
[2023-11-08 13:17] LABS: Influenza A PCR NEGATIVE (Negative); Influenza B PCR NEGATIVE (Negative); Resp Syncy Virus RNA Qual PCR NEGATIVE (Negative); SARS COV2 PCR INHOUSE NEGATIVE (Negative)
== END 2023-11-07 15:50 | disposition home or self-care (01) ==
LOC: HO.LAB 15:49
PROVIDERS: Visit Provider Nurse Practitioner Family
DX: Z11.52 Encounter for screening for COVID-19 (principal); R11.2 Nausea with vomiting, unspecified
CPT/HCPCS: 0241U

== ENCOUNTER 2023-11-08 20:42 | Inpatient (IN) | payer OTHER, SELFPAY ==
--- NOTE | ~2023-11-08 | US_ITS ---
EXAMINATION: US ABDOMEN LIMITED CLINICAL INFORMATION: Abnormal LFTs. Abnormal CT scan. Rule out liver abscesses. Rule out main portal vein thrombus. COMPARISON: CT scan of the abdomen and pelvis dated 12/12/2012 TECHNIQUE: Real-time imaging of the right upper quadrant abdominal viscera. FINDINGS: Evaluation is limited due to the patient's inability to suspend respiration. PANCREAS: Normal. LIVER: Normal. The liver is normal in size. The liver contour is normal. There is diffuse increased liver parenchymal echogenicity, consistent with hepatic steatosis. There are multiple cystic masses seen in the liver, including the following: -Left lobe, 3.2 x 2.7 x 3.7 cm simple avascular cyst. -Right lobe: 6.1 x 5.5 x 6.1 cm anechoic cyst with incomplete thin avascular septation. Both of these cysts are new when compared to the prior CT scan from 12/12/2012. Other smaller hypodensities seen on prior CT scan are not appreciated on this ultrasound. No suspicious liver mass is noted. There is no intrahepatic biliary duct dilatation seen. With color Doppler imaging, normal hepatopedal flow within the main portal vein is noted. GALLBLADDER: Suboptimally assessed due to being contracted , which likely accounts for the thickened gallbladder wall which measures up to 0.7 cm. No definite evidence of stones, sludge, polyps, or pericholecystic fluid. No sonographic Luther's sign. COMMON BILE DUCT: Normal in caliber measuring 0.4 cm in diameter. RIGHT KIDNEY: Normal. No hydronephrosis. No renal calculi or focal parenchymal lesions. The kidney measures 11.2 cm in maximum dimension. FREE FLUID: None. US/US abdomen limited IMPRESSION: * Diffuse hepatic steatosis. * Multiple hepatic cysts are seen, largest of which is in the right lobe with an incomplete thin avascular septation. These are new when compared to the prior CT scan from 12/12/2012. Other scattered smaller hypodensities seen on prior CT scan are not appreciated on this ultrasound. * Otherwise unremarkable right upper quadrant ultrasound.
--- NOTE | ~2023-11-08 | CT_ITS ---
EXAMINATION: CT ABDOMEN AND PELVIS WITH CONTRAST CLINICAL INFORMATION: Abdominal pain. Liver failure. COMPARISON: None available. TECHNIQUE: Multidetector volumetric images were obtained from the superior aspect of the liver through the pubic symphysis following administration 85 mL of Omnipaque 350 intravenous contrast. Sagittal and coronal reformatted images were obtained on the technologist's workstation. Oral contrast: No This CT examination was performed using dose optimization techniques as appropriate, variously including the following: *Automated exposure control *Adjustment of mA and/or kV according to patient size (this includes techniques or standardized protocols for targeted exams where dose is matched to indication/reason for exam; i.e. extremities or head) *Use of iterative reconstruction technique DLP: 1049 mGy-cm FINDINGS: LUNG BASES: There is minimal atelectasis or scarring at the lung bases. LIVER, GALLBLADDER, AND BILIARY TREE: The liver is of diffuse diminished attenuation. There are multiple hypodensities within the liver measuring up to 6.9 cm with low attenuation values consistent with cysts. The gallbladder is unremarkable with no evidence of radiopaque gallstones, gallbladder wall thickening, or obvious pericholecystic inflammatory changes. PANCREAS: Unremarkable. SPLEEN: Unremarkable. ADRENAL GLANDS: Unremarkable. KIDNEYS AND URETERS: The kidneys are normal in size, shape, and attenuation. No hydronephrosis, hydroureter, or calculi seen. No perinephric stranding. BLADDER: Unremarkable. GASTROINTESTINAL TRACT: The small and large bowel are unremarkable. The appendix is not seen. There are surgical clips at the base of the cecum. ABDOMINAL WALL: There is a minimal umbilical hernia containing fat. LYMPH NODES: Normal. VASCULAR: Unremarkable. PELVIC VISCERA: Unremarkable. OSSEOUS STRUCTURES: There is diffuse [id number] thoracolumbar disc degenerative change. CT/CT abdomen pelvis w IV con IMPRESSION: Fatty infiltration of the liver. Multiple hepatic cysts. No acute intra-abdominal process. Fleischner guidelines were followed.
[2023-11-08 21:08] VITALS: BP 126/84; PULSE 89; RESP 16; TEMP 36.8; O2SAT 98; BMI 25.1
[2023-11-08 21:29] LABS: MANUAL DIFF FLAG NO
[2023-11-08 21:37] LABS: Basophils Absolute Auto 0.1 X10*3/uL (0.0-0.2); Basophils Percent Auto 1.6 % (0-2); Eosinophils Absolute Auto 0.3 X10*3/uL (0.0-0.4); Eosinophils Percent Auto 3.5 % (0-4); Hematocrit 49.2 % (42.0-52.0); Hemoglobin 16.9 g/dl (14.0-18.0); Imm Gran Abs Auto 0.03 X10*3/uL (0.00-0.03); Imm Gran Pct Auto 0.4 % (0.0-0.4); Lymphocytes Absolute Auto 1.1 X10*3/uL (1.2-4.9); Lymphocytes Percent Auto 14.6 % (20-40); Mean Corpuscular HGB Conc 34.3 g/dl (31.0-36.0); Mean Corpuscular Hemoglobin 29.4 pg (27.0-33.0); Mean Corpuscular Volume 85.7 fL (80.0-98.0); Mean Platelet Volume 10.8 fL (9.4-12.4); Monocytes Absolute Auto 0.4 X10*3/uL (0.1-1.2); Monocytes Percent Auto 4.7 % (2-11); Neutrophils Absolute Auto 5.6 x10*3/uL (2.0-8.3); Neutrophils Percent Auto 75.2 % (45-73); Platelet Count 169 X10*3/uL (160-400); Red Blood Count 5.74 X10*6/uL (4.60-5.80); Red Cell Distribution Width 12.3 % (11.0-16.0); White Blood Count 7.4 X10*3/uL (4.8-10.8)
[2023-11-08 21:45] LABS: Albumin Level 3.7 g/dL (3.5-5.0); Alkaline Phosphatase 145 U/L (39-117); Anion Gap 13 (12-20); Aspartate Amino Transferase 2888 U/L (5-37); Bilirubin Total 5.8 mg/dL (0.0-1.0); Blood Urea Nitrogen 9 mg/dL (9-16); Calcium 8.8 mg/dL (8.4-10.2); Carbon Dioxide 24 mmol/L (22-29); Chloride 104 mmol/L (96-108); Creatinine Clr Calc Pharmacy 107.5; Estimated Glomerular Filt Rate > 60; Glucose Random 96 mg/dL (60-115); Potassium 4.1 mmol/L (3.3-5.1); Sodium 137 mmol/L (135-145); Total Protein 6.2 g/dL (6.5-8.0)
[2023-11-08 21:58] LABS: Alanine Aminotransferase 5509 U/L (0-40)
[2023-11-08 22:05] VITALS: BP 128/82; PULSE 82; RESP 20; TEMP 36.7; O2SAT 98
[2023-11-08 22:08] LABS: Influenza A PCR NEGATIVE (Negative); Influenza B PCR NEGATIVE (Negative); Resp Syncy Virus RNA Qual PCR NEGATIVE (Negative); SARS COV2 PCR INHOUSE NEGATIVE (Negative)
--- NOTE | 2023-11-08 23:27 | ECG_ITS ---
Test Reason : WEAKNESS Blood Pressure : / mmHG Vent. Rate : 091 BPM Atrial Rate : 091 BPM P-R Int : 160 ms QRS Dur : 090 ms QT Int : 600 ms P-R-T Axes : 069 065 049 degrees QTc Int : 738 ms Normal sinus rhythm Minimal voltage criteria for LVH, may be normal variant ( Sokolow-Rodriguez ) Nonspecific T wave abnormality Prolonged QT Abnormal ECG When compared with ECG of 15-MAR-2016 00:26, Vent. rate has increased BY [address] no longer elevated in Anterior leads T wave inversion now evident in Anterior leads QT has lengthened Referred By: Abi Barraza Electronically Signed By:HARISH PAULINO MD
--- NOTE | 2023-11-08 23:29 | ED_ITS ---
HPI - General Adult General Chief complaint: General Medical Stated complaint: weakness, nausea Time Seen by Provider: 11/08/23 22:57 Source: patient and family Mode of arrival: ambulatory Limitations: no limitations History of Present Illness HPI narrative: 48 yo male with no known medical history here with complaints of generalized abdomindal pain, nausea, weakness, fatigue, headache since Friday. Patient reports he had been hiking prior to this and eaten sausage/eggs Friday morning. His symptoms began after this. No fevers, chills, skin rash, diarrhea, chest pain, shortness of breath. No known tick bites. No recent travel or sick contact. Denies alcohol use. No substance use. Related Data Home Medications Medication Instructions Recorded Confirmed buprenorphine 2 mg-naloxone 0.5 mg 2 mg sublingual DAILY 08/27/22 03/14/23 sublingual film (Suboxone) Previous Rx's Medication Instructions Recorded albuterol sulfate 90 mcg/actuation 2 inh inhalation Q6H PRN shortness 04/17/22 aerosol inhaler of breath or wheezing 30 days #18 grams triamcinolone acetonide 0.1 % 1 appl topical BID #30 grams 09/26/23 topical cream metoclopramide HCl 10 mg tablet 10 mg PO Q6H PRN nausea and 11/07/23 (Reglan) vomiting #30 tabs ondansetron 8 mg disintegrating 8 mg PO Q8H #20 tabs 11/07/23 tablet sennosides 8.6 mg-docusate sodium 1 tab PO BEDTIME #30 tabs 11/07/23 50 mg tablet (Senokot-S) zolpidem 10 mg tablet (Ambien) 20 mg (2 x 10 mg) PO BEDTIME PRN 11/07/23 insomnia 30 days #60 tabs Allergies Allergy/AdvReac Type Severity Reaction Status Date / Time doxycycline Allergy burning Verified 11/08/23 21:08 skin sensation Review of Systems 2 Review of Systems: Yes all other systems are reviewed and are negative Constitutional: Constitutional: Reports no additional constitutional complaints, Denies body ache(s), Denies chills, Reports fatigue, Denies fever(s), Reports headache(s) and Denies weakness Eyes: Eyes: Reports no additional eye complaints and Denies change in vision ENT: Reports system reviewed and no additional complaints, except as documented, Denies dizziness, Reports headache(s), Denies nasal congestion, Denies nasal discharge and Denies neck pain Cardiovascular: Cardiovascular: Reports no additional cardiovascular complaints, Denies chest pain, Denies leg edema and Denies dyspnea Respiratory: Respiratory: Reports no additional respiratory complaints, Denies cough and Denies dyspnea Gastrointestinal: Gastrointestinal: Reports no additional gastrointestinal complaints, Reports abdominal pain, Denies diarrhea, Reports nausea and Denies vomiting Genitourinary: Genitourinary: Denies urinary incontinence Musculoskeletal: Musculoskeletal: Reports no additional musculoskeletal complaints, Denies back pain, Denies arthralgias, Denies joint swelling, Denies neck pain, Denies numbness and Denies tingling Integumentary/Breasts: Skin/Breast: Reports system reviewed and no additional complaints, except as docu and Denies rash Neurologic: Reports system reviewed and no additional complaints, except as documented, Denies Abnormal speech present, Denies dizziness, Reports headache(s), Denies numbness, Denies tingling and Denies weakness Endocrine: Endocrine: Reports fatigue PMFSH Past Medical History Medical History (Updated 11/09/23 @ 02:20 by Abi Barraza NP) Chronic allergic rhinitis Pulmonary nodules Eosinophilia Asthma Cavitary pneumonia Hearing loss Annual physical exam Opiate abuse, episodic Tinea corporis Hearing loss Tinnitus Insomnia Surgical History Hx of appendectomy No pertinent past surgical history Family History Family History Father Lymphoma Mother Breast cancer Social History Social History Household Members Other:: father Housing: House Alcohol intake: current Alcohol intake frequency: holidays/special occasions only Alcohol type: hard liquor Patient Tobacco Use Status: Never used Tobacco e-Cigarette/Vaping Use: Never Used Advance Directives: No Advance Directives Information Provided: No Current occupational status: employed 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 Cognitive needs: No Hearing needs: No Vision needs: No Physical Exam ED Vital Signs: Vital Signs - 24 hr 11/08/23 21:08 11/08/23 22:05 Temperature 98.2 F 98.1 F Pulse Rate 89 82 Respiratory Rate 16 20 Blood Pressure 126/84 128/82 Pulse Oximetry 98 98 Oxygen Delivery Method Room Air Room Air BMI result Body Mass Index 25.1 Const General: cooperative, healthy appearing, comfortable and no acute distress Orientation/consciousness: patient oriented x3 Limitations: no limitations HENMT Head: Yes normal to inspection Ears: hearing grossly normal bilaterally General nose exam: Normal external nose present Face and sinus: Yes normal facial exam Mouth: Normal oral and palatal mucosa present Throat: Yes posterior oropharynx normal Eyes General: appearance normal, both eyes and all related structures Sclerae: scleral abnormal bilateral (icterus ) Pupils: Equal, round and reactive pupils present Neck Neck: Yes normal visual inspection, Yes full ROM, Yes no lymphadenopathy and Yes no meningeal signs Chest Chest palpation & inspection: normal inspection of the chest Resp Effort & Inspection: normal respiratory effort Auscultation: clear to auscultation bilaterally Cardio Rate: regular rate Rhythm: regular rhythm Peripheral pulses: Peripheral pulses 2+ throughout GI Inspection: Yes normal to inspection Palpation (GI): Soft to palpation and Tenderness to palpation present (GI) (diffusely) Auscultation: normal bowel sounds Back/Spine/Pelvis Thoracic/Lumbar Spine: thoracic and lumbar spine normal to inspection Skin General skin exam: no rashes or lesions noted Neuro General: patient oriented x3, no meningeal signs, no focal motor deficits and normal sensation to monofilament Cranial nerves: Yes Equal, round and reactive pupils present Cognition (Neuro): normal cognition Speech: No Abnormal speech present Gait exam (Neuro): Normal gait present Motor exam (neuro): 5/5 motor strength present throughout Extrem General: Yes normal to inspection Course Course Course Narrative: Labs show acute liver failure with no history of same. Add on hepatitis panel, ammonia level, PT INR, lipase, APAP level, monoscreen. CT A/P pending Reevaluation(s) Reevaluation #1: [id number] out to Dr Gerardo pending CT Medications Administered Discontinued Medications Generic Name Dose Route Start Last Admin Trade Name Freq PRN Reason Stop Dose Admin Sodium Chloride 1,000 mls @ 999 mls/hr 11/08/23 23:27 11/08/23 23:49 Ns IV 11/09/23 00:27 999 mls/hr .Q1H1M STA Administration Iohexol 85 ml 11/09/23 00:28 11/09/23 00:28 Iohexol 350 Mg/Ml 100 Ml Infus..Btl IV 11/09/23 00:29 85 ml ONCE ONE Administration Ondansetron HCl 4 mg 11/08/23 23:27 11/08/23 23:49 Ondansetron Hcl 4 Mg/2 Ml Vial IVPUSH 11/08/23 23:28 4 mg ONCE ONE Administration Medical Decision Making Medical Decision Making [facility] Narrative: 48 yo male with no known medical history here with complaints of generalized abdomindal pain, nausea, weakness, fatigue, headache since Friday. Patient reports he had been hiking prior to this and eaten sausage/eggs Friday morning. His symptoms began after this. No fevers, chills, skin rash, diarrhea, chest pain, shortness of breath. No known tick bites. No recent travel or sick contact. No alcohol use or substance use On exam patient has diffuse abdominal tenderness no rebound or guarding. Will need labs, LONG, EKG, CT A/P Differential Diagnosis Differential Diagnoses: The differential diagnosis associated with the presentation includes Liver failure, hepatitis, viral syndrome Cholecystitis, pancreatitis, cholelithiasis Admission/Observation Consideration of admission/observation: Escalation of care including admission/observation considered Acute liver failure requiring admission for further manage Consult Healthcare Provider Management of the patient was discussed with: Hospitalist Lab Data [facility] Lab Attestation statement: I reviewed the patient's lab results. 11/08/23 21:24 11/08/23 21:24 Labs: Lab Results 11/08/23 11/08/23 11/08/23 Range/Units 21:24 21:26 23:47 WBC 7.4 (4.8-10.8) X10*3/uL RBC 5.74 (4.60-5.80) X10*6/uL Hgb 16.9 (14.0-18.0) g/dl Hct 49.2 (42.0-52.0) % MCV 85.7 (80.0-98.0) fL MCH 29.4 (27.0-33.0) pg MCHC 34.3 (31.0-36.0) g/dl RDW 12.3 (11.0-16.0) % Plt Count 169 (160-400) X10*3/uL MPV 10.8 (9.4-12.4) fL Immature Gran % (Auto) 0.4 (0.0-0.4) % Neut % (Auto) 75.2 H (45-73) % Lymph % (Auto) 14.6 L (20-40) % [place] % (Auto) 4.7 (2-11) % Eos % (Auto) 3.5 (0-4) % Baso % (Auto) 1.6 (0-2) % Lymph # (Auto) 1.1 L (1.2-4.9) X10*3/uL [place] # (Auto) 0.4 (0.1-1.2) X10*3/uL Eos # (Auto) 0.3 (0.0-0.4) X10*3/uL Baso # (Auto) 0.1 (0.0-0.2) X10*3/uL Abs Immat Gran (auto) 0.03 (0.00-0.03) X10*3/uL Absolute Neuts (auto) 5.6 (2.0-8.3) x10*3/uL Absolute Nucleated RBC 0.000 (0.0-0.012) X10*3/uL Nucleated RBC % (auto) 0.0 (0.0-0.2) /100WBC PT 24.9 H (11.1-13.3) SEC INR 2.0 H (0.9-1.1) Sodium 137 (135-145) mmol/L Potassium 4.1 (3.3-5.1) mmol/L Chloride 104 (96-108) mmol/L Carbon Dioxide 24 (22-29) mmol/L Anion Gap 13 (12-20) BUN 9 (9-16) mg/dL Creatinine 0.96 (0.5-1.4) mg/dL Estim Creat Clear Calc 107.5 Estimated GFR > 60 Random Glucose 96 (60-115) mg/dL Calcium 8.8 (8.4-10.2) mg/dL Magnesium 1.9 (1.6-2.6) mg/dL Total Bilirubin 5.8 H (0.0-1.0) mg/dL AST 2888 H (5-37) U/L ALT 5509 H (0-40) U/L Alkaline Phosphatase 145 H (39-117) U/L Ammonia (13-55) umol/L Total Creatine Kinase 112 (38-174) U/L Troponin I High Sens (<3.5-35.0) ng/L Total Protein 6.2 L (6.5-8.0) g/dL Albumin 3.7 (3.5-5.0) g/dL Lipase 43 (8-78) U/L Urine Opiates Screen (Not Detect) Urine Fentanyl Screen (Not Detect) Acetaminophen < 3 (<30) mcg/mL Ur Barbiturates Screen (Not Detect) Ur Phencyclidine Scrn (Not Detect) Ur Amphetamines Screen (Not Detect) U Benzodiazepines Scrn (Not Detect) Urine Cocaine Screen (Not Detect) U Marijuana (THC) Screen (Not Detect) Ethyl Alcohol < 10 mg/dL Monoscreen Negative (Negative) Influenza Type A (PCR) NEGATIVE (Negative) Influenza Type B (PCR) NEGATIVE (Negative) RSV RNA Qual (PCR) NEGATIVE (Negative) SARS-CoV-2 RNA (RT-PCR) NEGATIVE (Negative) 11/09/23 11/09/23 Range/Units 00:32 21:24 WBC (4.8-10.8) X10*3/uL RBC (4.60-5.80) X10*6/uL Hgb (14.0-18.0) g/dl Hct (42.0-52.0) % MCV (80.0-98.0) fL MCH (27.0-33.0) pg MCHC (31.0-36.0) g/dl RDW (11.0-16.0) % Plt Count (160-400) X10*3/uL MPV (9.4-12.4) fL Immature Gran % (Auto) (0.0-0.4) % Neut % (Auto) (45-73) % Lymph % (Auto) (20-40) % [place] % (Auto) (2-11) % Eos % (Auto) (0-4) % Baso % (Auto) (0-2) % Lymph # (Auto) (1.2-4.9) X10*3/uL [place] # (Auto) (0.1-1.2) X10*3/uL Eos # (Auto) (0.0-0.4) X10*3/uL Baso # (Auto) (0.0-0.2) X10*3/uL Abs Immat Gran (auto) (0.00-0.03) X10*3/uL Absolute Neuts (auto) (2.0-8.3) x10*3/uL Absolute Nucleated RBC (0.0-0.012) X10*3/uL Nucleated RBC % (auto) (0.0-0.2) /100WBC PT (11.1-13.3) SEC INR (0.9-1.1) Sodium (135-145) mmol/L Potassium (3.3-5.1) mmol/L Chloride (96-108) mmol/L Carbon Dioxide (22-29) mmol/L Anion Gap (12-20) BUN (9-16) mg/dL Creatinine (0.5-1.4) mg/dL Estim Creat Clear Calc Estimated GFR Random Glucose (60-115) mg/dL Calcium (8.4-10.2) mg/dL Magnesium (1.6-2.6) mg/dL Total Bilirubin (0.0-1.0) mg/dL AST (5-37) U/L ALT (0-40) U/L Alkaline Phosphatase (39-117) U/L Ammonia 90 H (13-55) umol/L Total Creatine Kinase (38-174) U/L Troponin I High Sens < 2.7 (<3.5-35.0) ng/L Total Protein (6.5-8.0) g/dL Albumin (3.5-5.0) g/dL Lipase (8-78) U/L Urine Opiates Screen Not Detected (Not Detect) Urine Fentanyl Screen Not Detected (Not Detect) Acetaminophen (<30) mcg/mL Ur Barbiturates Screen Not Detected (Not Detect) Ur Phencyclidine Scrn Not Detected (Not Detect) Ur Amphetamines Screen Not Detected (Not Detect) U Benzodiazepines Scrn Not Detected (Not Detect) Urine Cocaine Screen Not Detected (Not Detect) U Marijuana (THC) Screen Not Detected (Not Detect) Ethyl Alcohol mg/dL Monoscreen (Negative) Influenza Type A (PCR) (Negative) Influenza Type B (PCR) (Negative) RSV RNA Qual (PCR) (Negative) SARS-CoV-2 RNA (RT-PCR) (Negative) Independent Interpretation I performed an independent interpretation of an: EKG and CT Scan Radiology Impression Discussion of test interpretation with radiology: I have reviewed the radiologist's reading. Independent Historian Clinical information obtained from an independent historian. History obtained from or confirmed by: Spouse Critical Care Time Critical Care Time Critical Care Time: Yes Total Critical Care Time: 60 Attestation: Acute liver failure requiring admission Discharge Plan Discharge Clinical Impression: Acute hepatic failure Patient Disposition: Admitted As Inpatient
[2023-11-08] MEDS: ondansetron HCL 4 MG/2 ML VIAL IVPUSH (23:49)
[2023-11-08] MEDS: 0.9 % Sodium Chloride 1,000 ML 999 ML IV (23:49)
[2023-11-08 23:55] LABS: Ethanol < 10 mg/dL
[2023-11-09 00:09] LABS: Prothrombin Time 24.9 SEC (11.1-13.3)
[2023-11-09 00:11] LABS: Lipase 43 U/L (8-78); Magnesium 1.9 mg/dL (1.6-2.6)
[2023-11-09 00:24] LABS: Acetaminophen LAB < 3 mcg/mL (<30)
[2023-11-09 00:28] LABS: Monotest Negative (Negative)
[2023-11-09] MEDS: iohexoL 350 MG/ML 100 ML INFUS..BTL 85 ML IV (00:28)
[2023-11-09 00:54] LABS: Ammonia 90 umol/L (13-55)
[2023-11-09 01:11] LABS: Amphetamine Screen Urine Not Detected (Not Detect); Barbiturates, Urine Not Detected (Not Detect); Benzodiazepines Screen Urine Not Detected (Not Detect); Cannabinoid Screen Urine Not Detected (Not Detect); Cocaine Screen Urine Not Detected (Not Detect); Fentanyl, urine Not Detected (Not Detect); Opiate Screen Urine Not Detected (Not Detect); Phencyclidine Screen Urine Not Detected (Not Detect)
[2023-11-09 01:25] LABS: Troponin-I High Sensitivity < 2.7 ng/L (<3.5-35.0)
--- NOTE | 2023-11-09 02:51 | P.HPHOSP_ITS ---
History of Present Illness Date of Service: 11/09/23 Chief Complaint: Generalized malaise This is a 48-year-old male with pertinent history of insomnia on Ambien, opioid use disorder on Suboxone who presents to the emergency department for evaluation of generalized malaise and fatigability. Patient states it started about 4 days prior to presentation. He went hiking to [facility] 4 days prior to presentation. Patient states he went in [place] with dogs and is concerned about tics. Same day, he made sausage and eggs which he thought were undercooked. Patient began to have nausea and vomiting soon after. This has ongoing the last 3-4 days. Also has mild upper abdominal discomfort, right- sided, intermittent, nonradiating and without any relieving factors. States he feels tired and is sleeping all the time. No history of similar symptoms in the past. No family history of liver diseases. No fever, chest discomfort, palpitations, shortness of breath, changes in urinary or bowel habits. He also started Nazia's Wort and lion's ruddy herbal supplementation 1 week ago In the emergency department, AST and ALT found to be significantly elevated. Imaging with fatty infiltration of the liver and multiple hepatic cysts. Review of Systems 2 Constitutional: Constitutional: Reports lethargy, Reports malaise, Reports poor appetite and Reports weakness Cardiovascular: Cardiovascular: Reports no additional cardiovascular complaints Respiratory: Respiratory: Reports no additional respiratory complaints Gastrointestinal: Gastrointestinal: Reports abdominal pain, Reports nausea and Reports vomiting Genitourinary: Genitourinary: Reports no additional male genitourinary complaints Neurologic: Reports weakness [facility] Medical History Chronic allergic rhinitis Pulmonary nodules Eosinophilia Asthma Cavitary pneumonia Hearing loss Annual physical exam Opiate abuse, episodic Tinea corporis Hearing loss Tinnitus Insomnia Family History Father Lymphoma Mother Breast cancer Surgical History Hx of appendectomy No pertinent past surgical history Social History Household Members Other:: father Housing: House Alcohol intake: current Alcohol intake frequency: holidays/special occasions only Alcohol type: hard liquor Patient Tobacco Use Status: Never used Tobacco e-Cigarette/Vaping Use: Never Used Advance Directives: No Advance Directives Information Provided: No Current occupational status: employed 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 Cognitive needs: No Hearing needs: No Vision needs: No Meds Allergies Allergy/AdvReac Type Severity Reaction Status Date / Time doxycycline Allergy burning Verified 11/08/23 21:08 skin sensation Home Medications Medication Instructions Recorded Confirmed Last Taken Type buprenorphine 2 mg-naloxone 0.5 mg 2 mg sublingual DAILY 08/27/22 11/09/23 Unknown History sublingual film (Suboxone) Physical Exam 2 Vital Signs and Narrative: Vital Signs: Last Vital Signs Temp 98.1 F 11/08/23 22:05 Pulse 82 11/08/23 22:05 Resp 20 11/08/23 22:05 BP 128/82 11/08/23 22:05 Pulse Ox 98 11/08/23 22:05 O2 Del Method Room Air 11/08/23 22:05 BMI result Body Mass Index 25.1 Middle-aged male lying in bed in no distress Neck supple, no JVD Regular rate and rhythm, S1-S2 heard Regular breath sounds bilaterally, no wheezing or crackles appreciated Abdomen with mild right-sided tenderness, no guarding, no rigidity, no rebound tenderness Patient is awake, alert and oriented to self, place, time and person ; no focal motor deficit Psych: Normal mood No pedal edema Results Labs 11/08/23 21:24 11/08/23 21:24 Labs: Laboratory Results - last 24 hr 11/08/23 11/08/23 11/08/23 21:24 21:26 23:47 MCV 85.7 MCH 29.4 MCHC 34.3 RDW 12.3 Plt Count 169 MPV 10.8 Immature Gran % (Auto) 0.4 Neut % (Auto) 75.2 H Lymph % (Auto) 14.6 L [place] % (Auto) 4.7 Eos % (Auto) 3.5 Baso % (Auto) 1.6 Lymph # (Auto) 1.1 L [place] # (Auto) 0.4 Eos # (Auto) 0.3 Baso # (Auto) 0.1 Abs Immat Gran (auto) 0.03 Absolute Neuts (auto) 5.6 Absolute Nucleated RBC 0.000 Nucleated RBC % (auto) 0.0 PT 24.9 H INR 2.0 H Anion Gap 13 Estim Creat Clear Calc 107.5 Estimated GFR > 60 Random Glucose 96 Calcium 8.8 Magnesium 1.9 Total Bilirubin 5.8 H AST 2888 H ALT 5509 H Alkaline Phosphatase 145 H Ammonia Total Creatine Kinase 112 Troponin I High Sens Total Protein 6.2 L Albumin 3.7 Lipase 43 Urine Opiates Screen Urine Fentanyl Screen Acetaminophen < 3 Ur Barbiturates Screen Ur Phencyclidine Scrn Ur Amphetamines Screen U Benzodiazepines Scrn Urine Cocaine Screen U Marijuana (THC) Screen Ethyl Alcohol < 10 Monoscreen Negative Influenza Type A (PCR) NEGATIVE Influenza Type B (PCR) NEGATIVE RSV RNA Qual (PCR) NEGATIVE SARS-CoV-2 RNA (RT-PCR) NEGATIVE 11/09/23 11/09/23 00:32 21:24 MCV MCH MCHC RDW Plt Count MPV Immature Gran % (Auto) Neut % (Auto) Lymph % (Auto) [place] % (Auto) Eos % (Auto) Baso % (Auto) Lymph # (Auto) [place] # (Auto) Eos # (Auto) Baso # (Auto) Abs Immat Gran (auto) Absolute Neuts (auto) Absolute Nucleated RBC Nucleated RBC % (auto) PT INR Anion Gap Estim Creat Clear Calc Estimated GFR Random Glucose Calcium Magnesium Total Bilirubin AST ALT Alkaline Phosphatase Ammonia 90 H Total Creatine Kinase Troponin I High Sens < 2.7 Total Protein Albumin Lipase Urine Opiates Screen Not Detected Urine Fentanyl Screen Not Detected Acetaminophen Ur Barbiturates Screen Not Detected Ur Phencyclidine Scrn Not Detected Ur Amphetamines Screen Not Detected U Benzodiazepines Scrn Not Detected Urine Cocaine Screen Not Detected U Marijuana (THC) Screen Not Detected Ethyl Alcohol Monoscreen Influenza Type A (PCR) Influenza Type B (PCR) RSV RNA Qual (PCR) SARS-CoV-2 RNA (RT-PCR) Imaging Radiologist's Impressions: Impressions Abdomen/Pelvis CT 11/09/23 00:49 IMPRESSION: Fatty infiltration of the liver. Multiple hepatic cysts. No acute intra-abdominal process. Fleischner guidelines were followed. Assessment and Plan (1) Acute hepatitis: Status: Acute Plan This is a 48-year-old male with pertinent history of insomnia on Ambien, opioid use disorder on Suboxone who presents to the emergency department for evaluation of generalized malaise and fatigability. #. Acute hepatitis: Imaging with fatty liver and hepatic cyst. No liver failure (no encephalopathy). Acetaminophen level normal. Tox screen negative. Hepatitis viral, Lyme, HSV, CMV, EBV panel pending. Also obtained MICHELLE, antismooth muscle, LKM Ab. Patient Started Nazia's Wort and lion's ruddy mushroom [id number] supplementation 1 week ago. CPK normal. Consulted Gastroenterology #. Coagulopathy due to liver injury: Monitor INR #. Opioid use disorder on Suboxone #. Insomnia DVT prophylaxis: Mechanical Full code Admit as inpatient and will require two night minimum hospital stay for close monitoring of liver enzymes (as above), which is not possible in a lesser acute setting. Specialist consult pending Quality Stroke Does the patient have a stroke diagnosis?: No VTE Prior VTE?: No VTE Risk Level:: Medical - moderate - high VTE Device Contraindication: Treatment Not Indicated VTE Drug Contraindication: N/A - Med Ordered
--- NOTE | 2023-11-09 03:04 | PC.NURSE ---
pt transported from [facility] to main ED, pt in room, no acute distress noted. respirations even and unlabored.
[2023-11-09] MEDS: Lactated Ringers 1,000 ML 100 ML IVCONT ×2 (03:48→13:57)
--- NOTE | 2023-11-09 04:18 | PC.NURSE ---
LR running at 100ml/hr at this time.
[2023-11-09 05:05] LABS: MANUAL DIFF FLAG NO
[2023-11-09 05:07] LABS: Basophils Absolute Auto 0.1 X10*3/uL (0.0-0.2); Basophils Percent Auto 1.8 % (0-2); Eosinophils Absolute Auto 0.2 X10*3/uL (0.0-0.4); Eosinophils Percent Auto 2.3 % (0-4); Hematocrit 44.2 % (42.0-52.0); Hemoglobin 15.7 g/dl (14.0-18.0); Imm Gran Abs Auto 0.03 X10*3/uL (0.00-0.03); Imm Gran Pct Auto 0.4 % (0.0-0.4); Lymphocytes Percent Auto 14.1 % (20-40); Mean Corpuscular HGB Conc 35.5 g/dl (31.0-36.0); Mean Corpuscular Volume 84.5 fL (80.0-98.0); Mean Platelet Volume 10.6 fL (9.4-12.4); Monocytes Absolute Auto 0.5 X10*3/uL (0.1-1.2); Monocytes Percent Auto 6.7 % (2-11); Neutrophils Absolute Auto 5.3 x10*3/uL (2.0-8.3); Neutrophils Percent Auto 74.7 % (45-73); Platelet Count 165 X10*3/uL (160-400); Red Blood Count 5.23 X10*6/uL (4.60-5.80); Red Cell Distribution Width 12.3 % (11.0-16.0)
[2023-11-09 05:13] LABS: INTERNATIONAL NORM RATIO 1.9 (0.9-1.1); Prothrombin Time 23.1 SEC (11.1-13.3)
[2023-11-09 05:36] LABS: Alanine Aminotransferase 4395 U/L (0-40); Albumin Level 3.3 g/dL (3.5-5.0); Alkaline Phosphatase 121 U/L (39-117); Anion Gap 13 (12-20); Aspartate Amino Transferase 1998 U/L (5-37); Bilirubin Total 5.6 mg/dL (0.0-1.0); Blood Urea Nitrogen 7 mg/dL (9-16); Calcium 8.3 mg/dL (8.4-10.2); Carbon Dioxide 22 mmol/L (22-29); Chloride 106 mmol/L (96-108); Estimated Glomerular Filt Rate > 60; Glucose Random 85 mg/dL (60-115); Potassium 4.2 mmol/L (3.3-5.1); Sodium 137 mmol/L (135-145); Total Protein 5.4 g/dL (6.5-8.0)
[2023-11-09 05:41] VITALS: BP 128/80; PULSE 89; RESP 16; TEMP 37.6; O2SAT 95
--- NOTE | 2023-11-09 07:19 | PC.NURSE ---
Assumed care of this patient at 0700, patient resting quietly on stretcher at this time, informed of plan of care & that patient will be admitted to the hospital. Patient requesting to eat, diet order placed patient due to get breakfast.
--- NOTE | 2023-11-09 07:53 | PHA.MEDREC ---
Pharmacy Consult ? Medication Reconciliation Pharmacy has completed the medication reconciliation. Spoke to patient and confirmed medication list. Patient says he takes zolpidem 10 mg at the beginning of the night and then 5 mg 4 hours later when he wakes up.
[2023-11-09 08:57] VITALS: BP 133/84; PULSE 107; RESP 14; O2SAT 94
--- NOTE | 2023-11-09 11:09 | PM.EVENT ---
Event Note Date of Service: 11/09/23 Event Note: This is a 48-year-old male with pertinent history of insomnia on Ambien, opioid use disorder on Suboxone who presents to the emergency department for evaluation of generalized malaise and fatigability. mild encephalopathy secondary to Acute hepatitis Imaging with fatty liver and hepatic cyst. Acetaminophen level normal. Tox screen negative. CPK normal. Hepatitis viral, Lyme, HSV, CMV, EBV panel pending. Also obtained MICHELLE, antismooth muscle, LKM Ab. Patient Started Nazia's Wort and lion's ruddy mushroom [id number] supplementation 1 week ago. Consulted Gastroenterology>repeat labs mildly improved Hyperammonemia secondary to liver process Lactulose 20 g q.i.d. Coagulopathy due to liver injury Monitor INR vitamin K Opioid use disorder on Suboxone Insomnia ambien DVT prophylaxis: Mechanical Attending Dr. Guevara Full code Admit as inpatient and will require two night minimum hospital stay for close monitoring of liver enzymes (as above), which is not possible in a lesser acute setting. Specialist consult pending Time Spent With Patient Time: Total time managing care of this patient today ____ minutes.
[2023-11-09 13:24] VITALS: BMI 25.1
[2023-11-09 13:49] VITALS: BP 122/75; PULSE 81; RESP 18; TEMP 36.1; O2SAT 94
[2023-11-09] MEDS: Buprenorphine/Naloxone 2/0.5mg FILM 1 FILM SUBLINGUAL (13:57)
[2023-11-09 15:15] VITALS: BP 116/59; PULSE 85; RESP 18; TEMP 36; O2SAT 93
[2023-11-09 15:20] LABS: INTERNATIONAL NORM RATIO 1.6 (0.9-1.1); Prothrombin Time 19.3 SEC (11.1-13.3)
[2023-11-09 15:34] LABS: Albumin Level 3.3 g/dL (3.5-5.0); Alkaline Phosphatase 116 U/L (39-117); Aspartate Amino Transferase 1513 U/L (5-37); Bilirubin Direct 4.4 mg/dL (0.0-0.5); Bilirubin Total 5.9 mg/dL (0.0-1.0); Total Protein 5.4 g/dL (6.5-8.0)
[2023-11-09 16:05] LABS: Alanine Aminotransferase 3968 U/L (0-40)
[2023-11-09 16:15] LABS: Ammonia 112 umol/L (13-55)
--- NOTE | 2023-11-09 16:55 | PM.EVENT ---
Event Note Date of Service: 11/09/23 Event Note: GI Consult-Full note dictated. History from patient, girlfriend, and EMR. Imp: Acute hepatitis with some component of liver dysfunction with jaundice, coagulopathy, and elevated ammonia level with some associated lethargy. The acute hepatitis is most likely related to a new supplement he started a couple of weeks ago, although viral hepatitis and autoimmune studies are pending. I don't think this represents any underlying chronic liver disease based on his history, exam, and workup. His imaging describes some new liver cysts but they don't appear to be abscesses, and there is no evidence of portal HTN or cirrhosis. Some of his labs have improved as of this afternoon which is reassuring, but the higher ammonia level and some lethargy are of concern. He is presently alert, oriented, answers questions appropriately, and is without asterixis. Rec: Supportive care, Lactulose, IV Vit K, and F/U labs in AM. Blood cultures x 2. F/U pending labs. Avoid all hepatotoxic drugs and sedatives(I D/C'd the Ambien). If concerns regarding worsening liver function are seen overnight or with his morning labs he will need transfer to a tertiary facility with liver transplant capability. D/W patient and his girlfriend in detail. They are comfortable with this plan. D/W hospitalist staff as well. Thanks Time Spent With Patient Time: Total time managing care of this patient today ____ minutes.
[2023-11-09] MEDS: Lactulose 20 GM/30 ML SOLUTION PO ×2 (17:25→20:44)
[2023-11-09] MEDS: Phytonadione (Vit K1) 10 MG in 0.9 % Sodium Chloride 50 ML 51 MG IV (17:25)
--- NOTE | 2023-11-09 17:42 | P.DS_ITS ---
DS: Providers Provider Date of Service: 11/09/23 Date of admission: 11/09/23 02:50 Primary care physician: Mariola Cifuentes MD Consults: 11/09/23 03:25 Consult to Gastroenterology Routine Consulting Provider: Gilberto Troy Reason for consultation: acute hepatitis DS: Diagnosis Discharge Diagnosis (1) Acute hepatitis: Status: Acute DS: Summary Hospital Course Hospital Course: History and physical as per admitting provider. This is a 48-year-old male with pertinent history of insomnia on Ambien, opioid use disorder on Suboxone who presents to the emergency department for evaluation of generalized malaise and fatigability. Patient states it started about 4 days prior to presentation. He went hiking to [facility] 4 days prior to presentation. Patient states he went in [place] with dogs and is concerned about tics. Same day, he made sausage and eggs which he thought were undercooked. Patient began to have nausea and vomiting soon after. This has ongoing the last 3-4 days. Also has mild upper abdominal discomfort, right-sided, intermittent, nonradiating and without any relieving factors. States he feels tired and is sleeping all the time. No history of similar symptoms in the past. No family history of liver diseases. No fever, chest discomfort, palpitations, shortness of breath, changes in urinary or bowel habits. He also started Nazia's Wort and lion's ruddy herbal supplementation 1 week ago. In the emergency department, AST and ALT found to be significantly elevated. Imaging with fatty infiltration of the liver and multiple hepatic cysts. 58-year-old man admitted for acute hepatitis with encephalopathy. Imaging revealed fatty liver with hepatic cyst, acetaminophen level normal, tox screen negative, CPK normal, mono negative. Hepatitis panel, Lyme, HSV, CMV, EBV, MICHELLE, anti smooth muscle all pending. Patient denies any fever, chills, vomiting, diarrhea, recent travel, recent illness, sick contacts, improperly cooked foods. Reported that he was recently starting Saint Bull's Wort and lion's ruddy mushroom [id number] supplementation approximately 1 week ago. He also reported hiking where he was in some mud and was concerned about tics. He also reported that he made sausage and eggs and thought this may have been undercooked. He has been having nausea over the last 3-4 days with some mild upper abdominal discomfort. His liver enzymes were significantly elevated, AST 1998, ALT 4395, alkaline phosphatase 121, total bilirubin 5.6, initial ammonia 90 and repeat of 112. Coagulopathy with initial INR of 2.0. Patient was started on lactulose 20 g q.i.d., IV fluids. Patient was seen evaluated by Gastroenterology, recommendations for lactulose, IV vitamin K and blood cultures. Patient is able to answer questions appropriately but is very sleepy. Plan is to transfer patient to tertiary care facility with liver transplant capability. History of substance abuse. On Suboxone Alcohol use. Reports 3 to 5 times a week drinking 2 shots whiskey and sometimes 2-3 beers Time Attestation Discharge Coordination Time (in mins): 60 Quality: Safe Use of Opioids Does Pt have an Active Cancer Diagnosis on the Problem List?: No Quality: Stroke Does the patient have a stroke diagnosis?: No Physical Exam Vital Signs: Vital Signs: Last Vital Signs Temp 96.8 F 11/09/23 15:15 Pulse 85 11/09/23 15:15 Resp 18 11/09/23 15:15 BP 116/59 L 11/09/23 15:15 Pulse Ox 93 11/09/23 15:15 O2 Del Method Room Air 11/09/23 15:15 BMI result Body Mass Index 25.1 Appearing in no acute distress, sleepy head is normocephalic atraumatic eyes pupils are PERRLA sclera is anicteric mouth throat mucous membranes are intact and moist neck is supple no lymphadenopathy, no JVD noted lung sounds are clear to auscultation heart regular rate rhythm, clear S1, S2 positive bowel sounds, abdomen is soft, nontender neuro opens eyes to name but closes eyes soon after DS: Data Data Completed and Pending Labs on day of discharge: Laboratory Results - last 24 hr 11/08/23 11/08/23 11/08/23 21:24 21:26 23:47 WBC 7.4 RBC 5.74 Hgb 16.9 Hct 49.2 MCV 85.7 MCH 29.4 MCHC 34.3 RDW 12.3 Plt Count 169 MPV 10.8 Immature Gran % (Auto) 0.4 Neut % (Auto) 75.2 H Lymph % (Auto) 14.6 L [place] % (Auto) 4.7 Eos % (Auto) 3.5 Baso % (Auto) 1.6 Lymph # (Auto) 1.1 L [place] # (Auto) 0.4 Eos # (Auto) 0.3 Baso # (Auto) 0.1 Abs Immat Gran (auto) 0.03 Absolute Neuts (auto) 5.6 Absolute Nucleated RBC 0.000 Nucleated RBC % (auto) 0.0 PT 24.9 H INR 2.0 H Sodium 137 Potassium 4.1 Chloride 104 Carbon Dioxide 24 Anion Gap 13 BUN 9 Creatinine 0.96 Estim Creat Clear Calc 107.5 Estimated GFR > 60 Random Glucose 96 Calcium 8.8 Magnesium 1.9 Total Bilirubin 5.8 H Direct Bilirubin AST 2888 H ALT 5509 H Alkaline Phosphatase 145 H Ammonia Total Creatine Kinase 112 Troponin I High Sens Total Protein 6.2 L Albumin 3.7 Lipase 43 Urine Opiates Screen Urine Fentanyl Screen Acetaminophen < 3 Ur Barbiturates Screen Ur Phencyclidine Scrn Ur Amphetamines Screen U Benzodiazepines Scrn Urine Cocaine Screen U Marijuana (THC) Screen Ethyl Alcohol < 10 Monoscreen Negative Influenza Type A (PCR) NEGATIVE Influenza Type B (PCR) NEGATIVE RSV RNA Qual (PCR) NEGATIVE SARS-CoV-2 RNA (RT-PCR) NEGATIVE 11/09/23 11/09/23 11/09/23 00:32 05:00 15:01 WBC 7.0 RBC 5.23 Hgb 15.7 Hct 44.2 MCV 84.5 MCH 30.0 MCHC 35.5 RDW 12.3 Plt Count 165 MPV 10.6 Immature Gran % (Auto) 0.4 Neut % (Auto) 74.7 H Lymph % (Auto) 14.1 L [place] % (Auto) 6.7 Eos % (Auto) 2.3 Baso % (Auto) 1.8 Lymph # (Auto) 1.0 L [place] # (Auto) 0.5 Eos # (Auto) 0.2 Baso # (Auto) 0.1 Abs Immat Gran (auto) 0.03 Absolute Neuts (auto) 5.3 Absolute Nucleated RBC 0.000 Nucleated RBC % (auto) 0.0 PT 23.1 H 19.3 H INR 1.9 H 1.6 H Sodium 137 Potassium 4.2 Chloride 106 Carbon Dioxide 22 Anion Gap 13 BUN 7 L Creatinine 0.80 Estim Creat Clear Calc 129.0 Estimated GFR > 60 Random Glucose 85 Calcium 8.3 L Magnesium Total Bilirubin 5.6 H 5.9 H Direct Bilirubin 4.4 H AST 1998 H 1513 H ALT 4395 H 3968 H Alkaline Phosphatase 121 H 116 Ammonia 90 H 112 H Total Creatine Kinase Troponin I High Sens Total Protein 5.4 L 5.4 L Albumin 3.3 L 3.3 L Lipase Urine Opiates Screen Not Detected Urine Fentanyl Screen Not Detected Acetaminophen Ur Barbiturates Screen Not Detected Ur Phencyclidine Scrn Not Detected Ur Amphetamines Screen Not Detected U Benzodiazepines Scrn Not Detected Urine Cocaine Screen Not Detected U Marijuana (THC) Screen Not Detected Ethyl Alcohol Monoscreen Influenza Type A (PCR) Influenza Type B (PCR) RSV RNA Qual (PCR) SARS-CoV-2 RNA (RT-PCR) 11/09/23 21:24 WBC RBC Hgb Hct MCV MCH MCHC RDW Plt Count MPV Immature Gran % (Auto) Neut % (Auto) Lymph % (Auto) [place] % (Auto) Eos % (Auto) Baso % (Auto) Lymph # (Auto) [place] # (Auto) Eos # (Auto) Baso # (Auto) Abs Immat Gran (auto) Absolute Neuts (auto) Absolute Nucleated RBC Nucleated RBC % (auto) PT INR Sodium Potassium Chloride Carbon Dioxide Anion Gap BUN Creatinine Estim Creat Clear Calc Estimated GFR Random Glucose Calcium Magnesium Total Bilirubin Direct Bilirubin AST ALT Alkaline Phosphatase Ammonia Total Creatine Kinase Troponin I High Sens < 2.7 Total Protein Albumin Lipase Urine Opiates Screen Urine Fentanyl Screen Acetaminophen Ur Barbiturates Screen Ur Phencyclidine Scrn Ur Amphetamines Screen U Benzodiazepines Scrn Urine Cocaine Screen U Marijuana (THC) Screen Ethyl Alcohol Monoscreen Influenza Type A (PCR) Influenza Type B (PCR) RSV RNA Qual (PCR) SARS-CoV-2 RNA (RT-PCR) Discharge Plan Discharge Anticipated Discharge Date/Time: 11/09/23 18:58 Patient Disposition: Xfer Acute [facility] Discharge Diagnosis: Acute hepatitis Encephalopathy Referrals: Mariola Cifuentes MD [Primary Care Provider] - 1 Week Discharge Medications: Continued zolpidem [Ambien] 10 mg tablet 15 mg PO BEDTIME PRN (Reason: insomnia) buprenorphine-naloxone [Suboxone] 2-0.5 mg film 2 mg sublingual DAILY Discharge Orders: Discharge Order (Routine); Ordered 11/09/23 Ordered By: Britta Dunn Diet: Advance to usual diet Activity on Discharge: As tolerated Stand Alone Forms: Patient Portal Discharge page Care Plan Goals: Acute care transfer Health Concerns: Acute hepatitis Encephalopathy Plan of Treatment: Transfer to tertiary care facility for further management of acute hepatitis Assessment: See discharge summary
[2023-11-09 19:27] VITALS: BP 137/87; PULSE 70; RESP 18; TEMP 37.1; O2SAT 96
[2023-11-09] MEDS: 0.9 % Sodium Chloride Flush 3 ML SYRINGE IVFLUSH (20:44)
[2023-11-09] MEDS: ondansetron HCL 4 MG/2 ML VIAL IVPUSH (20:44)
--- NOTE | 2023-11-10 05:29 | CONS_ITS ---
DATE OF SERVICE: 11/09/2023 REASON FOR CONSULTATION: Acute hepatitis. HISTORY OF PRESENT ILLNESS: This has been obtained from the patient, his girlfriend, and the medical record. The patient is a 48-year-old male, who describes that he was in his usual state of health up until about 4 or 5 days ago. He describes that since that time, he has had progressive fatigue, nausea, anorexia, some minimal upper abdominal discomfort, and an overall feeling of lethargy. He typically describes that he has high energy and is very alert. He does take a daily dose of Suboxone for what sounds like some possible issue with opiates in the past, but denies any history of IV drug use, nor any recent illicit drug abuse. He does describe having 1 or 2 drinks in the evening but not anything heavy or with any recent history of binging. He does describe having started a new supplement, Lion's Ramirez herbal supplement and Saint Bull's Wort in the past week or two. He denies any previous history of liver disease in himself nor family members. He denies any ill contacts, travel, nor any other new medication. He does use occasional ibuprofen and acetaminophen, but not on a regular and frequent basis. Due to his continued symptoms of feeling poorly, he came to the ER and was found to have markedly elevated liver enzymes and was admitted. Since admission, he has still been feeling very tired and lethargic, but has had no signs of bleeding, vomiting, nor abdominal pain. He denies any diarrhea. He has been afebrile. His appetite has been fair, and he has been maintaining some oral intake. He has noticed some darkened urine at home but denies any signs of jaundice otherwise. MEDICATIONS: At home, Suboxone and the above-mentioned herbal supplements, as well as a dose of Ambien at bedtime that he has been on for many years. PAST MEDICAL HISTORY: Appendectomy. He denies any other surgeries. He denies any history of heart disease, diabetes, lung disease, nor kidney disease. SOCIAL HISTORY: He does not smoke. One or 2 drinks in the evening. He takes care of his father at home. He has a girlfriend. FAMILY HISTORY: Noncontributory. REVIEW OF SYSTEMS: CONSTITUTIONAL: He had been feeling well up until the past few days, and since, then has been experiencing fatigue, lethargy, and some anorexia. SKIN: No rash, no pruritus. CARDIAC: No chest pain. PULMONARY: No coughing or hemoptysis. GI: As above. URINARY: No dysuria, no hematuria. NEUROLOGIC: No headache or seizures. PSYCHIATRIC: Negative. PHYSICAL EXAMINATION: GENERAL: The patient is a pleasant, alert, cooperative male. He answers questions appropriately but does seem tired. No definite scleral icterus on exam. SKIN: Warm and dry. There are no obvious spider angiomata. He does have some tattoos, but reports that he has not had any new tattoos. CHEST: Clear. CARDIAC: Normal S1, S2. ABDOMEN: Soft, nondistended. Normal bowel sounds. Nontender without palpable organomegaly or mass. EXTREMITIES: Without edema. There is no palmar erythema. NEUROLOGIC: He is alert and oriented. He answers questions appropriately and does not have any asterixis. However, he is somewhat sleepy in appearance. This is different than his usual state according to his girlfriend. LABORATORY DATA: He did have a normal liver profile most recently as of March 2022. He also had negative hepatitis A, B, and C serologies back in 2019. His admitting labs here showed a total bilirubin of 5.8, AST 2888, ALT 5509, and alkaline phosphatase of 145. PT was 24.9 with INR 2.0. Ammonia level was 90. Followup laboratories this morning revealed a total bilirubin of 5.6, AST 1998, ALT 4395, alkaline phosphatase 121, albumin 3.3, and PT 23.1 with INR 1.9. His CBC was stable. White blood cell count 7.0, hemoglobin 15.7, and a platelet count of 165,000. His urine toxicology screen was negative, acetaminophen level was less than 3, and alcohol level was nondetectable. Hepatitis A, B, and C serologies are pending. [place] test is negative. COVID was negative. MICHELLE and smooth muscle antibodies are pending. He did have followup laboratories this afternoon showing a total bilirubin of 5.9 with a direct bilirubin of 4.4. Continued improvement in the liver enzymes with AST of 1513, an ALT of 3968. Alkaline phosphatase is 116. His PT also improved a little bit to 19.3 with INR 1.6. His ammonia level did increase somewhat to level of 112 from 90 early this morning. His imaging studies included a CT scan of the abdomen and pelvis describing some liver cysts, but without any sign of cirrhosis, liver mass, gallstones, nor biliary disease. There was no splenomegaly and no description of any intraabdominal fluid. He did have a followup abdominal ultrasound today that describes the liver cysts, which do not appear to represent abscesses, although the cysts do appear new compared to a CT scan from 2013. There was no biliary disease noted. The portal vein appeared patent with normal flow. There was no evidence of any definitive gallstones nor biliary obstruction. There was no ascites. IMPRESSION: The patient presents with acute hepatitis with some worrisome features including an elevated ammonia level, prolonged PT with INR, and elevated total bilirubin. He does not show any gross evidence of encephalopathy on his exam with asterixis, but nonetheless, his mental status is somewhat sleepy and lethargic. As far as the etiology of this is concerned, I would think this most likely represents some type of toxin induced hepatitis, possibly from one of his new herbal supplements. A viral hepatitis is a possibility, although again, the numbers are quite high for that. I do not think this is related to his mild alcohol consumption. I do not think this represents any underlying chronic liver disease given the acute presentation with his symptomatology and his laboratories. I am concerned about his mental status, which is somewhat sluggish and the elevated ammonia level. However, the stable total bilirubin, improving liver enzymes, and improving PT with INR are reassuring. At this point, I would continue supportive care along with some vitamin K and lactulose. If things remain stable over the course of this evening, then I think we will check his laboratories in the morning and then decide about potential transfer to a tertiary center for liver transplant evaluation if need be. If the numbers continue to improve and he appears to be improving, then we could certainly hold off on that. However, if it looks that he has developed any worsening liver function based on his ammonia level, bilirubin, and PT with INR, then I would definitely recommend transfer to a tertiary center for transplant evaluation. I did review with the patient that this most likely will resolve without needing a transplant, but it would be best to transfer him sooner rather than later, if need be. In the meantime, we shall also await the results of his viral hepatitis studies and autoimmune studies. I would hold off on liver biopsy at this time as I do not think that would give us any definitive answers as far as the etiology or further treatment options. This has been discussed with the patient and his girlfriend in detail and they are comfortable with this plan. Thanks for this consultation. MD ADINA Santana/JOSSELIN / [id number] MTDD
[2023-11-10 08:22] LABS: HBS Num1 0.08 mIU/mL (0-7.99); HBc Num1 0.16 S/CO (0.00-0.79); HBsAGNum1 0.35 S/CO (0.00-0.99); Hepatitis A Antibody IgM 0.21 Index (0-0.79); Hepatitis B Core Antibody Nonreactive (Nonreactive); Hepatitis B Surface Antigen Negative (Negative); ~HepC Num1 0.14 S/CO (0.00-0.79); ~Hepatitis A Antibody IgM Nonreactive (Nonreactive); ~Hepatitis B Surface Antibody NONREACTIVE (Nonreactive); ~Hepatitis C Antibody Nonreactive (Nonreactive)
[2023-11-10 18:03] LABS: EBV-VCA IgM Ab <36.00 U/mL; Herpes Simplex Type 2 IgG <0.90 index
[2023-11-11 06:29] LABS: Lyme Abs Screen <0.90 index
[2023-11-13 15:18] LABS: Anti Nuclear Antibody Screen NEGATIVE (NEGATIVE)
[2023-11-14 14:13] LABS: Liver Kidney Microsomal Ab <=20.0 U (<=20.0); Smooth Muscle Antibody <20 U (<20)
== END 2023-11-09 22:31 | disposition short-term general hospital (02) ==
LOC: HO.ED 11-09 02:45 → HO.EDOVER 11-09 02:56 → HO.S3 11-09 12:09
PROVIDERS: Internal Medicine; Nurse Practitioner Family; Admitting Provider Student in an Organized Health Care Education/Training Program; Emergency Provider Emergency Medicine; PCP Internal Medicine; Visit Provider Nurse Practitioner Acute Care
DX: B17.9 Acute viral hepatitis, unspecified (principal); G93.49 Other encephalopathy; D68.4 Acquired coagulation factor deficiency; K76.0 Fatty (change of) liver, not elsewhere classified; F11.20 Opioid dependence, uncomplicated; G47.00 Insomnia, unspecified; K76.89 Other specified diseases of liver; Z20.822 Contact with and (suspected) exposure to COVID-19; Z79.899 Other long term (current) drug therapy
CPT/HCPCS: 0241U; 36415; 74177; 76705; 80053; 80076; 80143; 80307; 82140; 82550; 83690; 83735; 84100; 84484; 85025; 85610; 86015; 86038; 86308; 86376; 86617; 86618; 86664; 86665; 86695; 86696; 86704; 86706; 86709; 86787; 86803; 87040; 87340; 93005; 99285; J2405; J3430; J7120; Q9967

== ENCOUNTER → 2023-11-08 23:27 | Outpatient (BNV) | payer OTHER, SELFPAY | PROVIDERS: Admitting Provider Student in an Organized Health Care Education/Training Program; Emergency Provider Emergency Medicine; PCP Internal Medicine; Visit Provider Internal Medicine Cardiovascular Disease | DX: R53.1 Weakness (principal) | CPT/HCPCS: 93010 ==

== ENCOUNTER → 2023-11-09 02:50 | Outpatient (BNV) | payer OTHER, SELFPAY | PROVIDERS: Admitting Provider Student in an Organized Health Care Education/Training Program; Emergency Provider Emergency Medicine; PCP Internal Medicine; Visit Provider Student in an Organized Health Care Education/Training Program | DX: B17.9 Acute viral hepatitis, unspecified (principal) | CPT/HCPCS: 99236; 99499 ==

== ENCOUNTER 2023-11-14 09:03 | Outpatient (AMB) | payer OTHER, SELFPAY ==
[2023-11-14 09:06] VITALS: BP 112/76; PULSE 78; O2SAT 98; BMI 26.0
--- NOTE | 2023-11-14 09:06 | MHC.PC.OV ---
Vital Signs 11/14/23 09:06 Height 6 ft 1 in Weight 197 lb BMI 26.0 BP 112/76 Blood Pressure Location Rt brachial Position Sitting Pulse 78 Pulse Source Pulse Oximeter Pulse Oximetry (%) 98 Oxygen Delivery Method Room Air Intake Visit Reasons: HDF Acute Liver Intake Note: Pt is here today for Hospital folloow up visit. Allergies doxycycline Allergy (Verified 11/14/23 09:11) burning skin sensation Tobacco use date assessed: 11/14/23 Dental Screening Dental Screen Date: 11/14/23 Did you have a dental visit in the last 12 months?: Yes Did you have a dental problem in the last 6 months where you did not have access to dental care?: No Was dental information given to patient?: Patient has dentist HPI HDF Acute Liver HPI Details Pt presents for hospitalization at [facility] for acute liver failure due to excessive alcohol intake and herbal supplements. Patient reports feeling better denies nausea vomiting reports improved appetite but still feeling generally weak. Patient denies nausea vomiting change in bowel habits abdominal pain. He has been taking Suboxone and zolpidem as needed only [facility] Medical History Chronic allergic rhinitis Pulmonary nodules Eosinophilia Asthma Cavitary pneumonia Hearing loss Annual physical exam Opiate abuse, episodic Tinea corporis Hearing loss Tinnitus Insomnia Surgical History Hx of appendectomy No pertinent past surgical history Family History Father Lymphoma Mother Breast cancer Social History Household Members: Family and Other Household Members Other:: father Housing: House Alcohol intake: current Alcohol intake frequency: a few times a week Alcohol type: hard liquor Patient Tobacco Use Status: Never used Tobacco e-Cigarette/Vaping Use: Never Used Current occupational status: employed 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 78715 - PHQ-9 Billing: Patient declined-do not bill Source: Developed by Drs. Gilberto Pradhan, Tabby Corbin, Manish Conteh and colleagues, with an educational chanel from [employer]. Thrive Questionnaire Date Thrive assessed: 11/14/23 What is your living situation today?: I choose not to answer this question Within the past 12 months, did the food you bought not last and you didn't have the money to get more?: I choose not to answer this question Within the past 12 months, did you worry whether your food would run out before you got money to buy more?: I choose not to answer this question Do you have trouble paying for medicines?: I choose not to answer this question Do you have trouble getting transportation to medical appointments?: I choose not to answer this question Do you have trouble paying your heating and electricity bill?: I choose not to answer this question Do you have trouble taking care of your child, family member or friend?: I choose not to answer this question Do you have trouble with day-to-day activities such as bathing, preparing meals, shopping, managing finances, etc.?: I choose not to answer this question Are you currently unemployed and looking for a job?: I choose not to answer this question Are you interested in more education?: I choose not to answer this question Currently or been in a relationship where the following occur: I choose not to answer this question THRIVE Score: 0 AUDIT C Alcohol Use Questionnaire (AUDIT-C) 1. How often do you have a drink containing alcohol?: 2-3 times a week 2. How many drinks containing alcohol do you have on a typical day when you are drinking?: 1 or 2 3. How often do you have six or more drinks on one occasion?: Never Total Score: 3 KESHAV-7 AMB Questionnaire KESHAV-7 Date KESHAV - 7 assessed: 11/14/23 Source: Developed by Drs. Gilberto Pradhan, Tabby Corbin, Manish Conteh and colleagues, with an educational chanel from [employer]. KESHAV-7 Assessment Billing KESHAV-7 Assessment Tool: pt declined-do not bill Review of Systems Const All systems reviewed & are unremarkable except as noted in HPI and below Reports no additional complaints Eyes Reports no additional complaints ENT Reports no additional complaints Card Reports no additional complaints Resp Reports no additional complaints GI Reports no additional complaints Reports no additional complaints Physical exam (Primary Care) Vital Signs: Last Vital Signs Pulse 78 11/14/23 09:06 BP 112/76 11/14/23 09:06 Pulse Ox 98 11/14/23 09:06 Oxygen Delivery Method Room Air 11/14/23 09:06 BMI result Body Mass Index 26.0 Tobacco/Smoking Status: Tobacco use Status Tobacco use date assessed 11/14/23 11/14/23 09:15 Patient Tobacco Use Status Never used Tobacco 11/14/23 09:15 e-Cigarette/Vaping Use Never Used 11/14/23 09:15 Thrive Assessment: Date of Thrive Assessment Date Thrive assessed 11/14/23 11/14/23 09:15 Currently or been in a relationship where the following occur: I choose not to answer this question Const General: no acute distress HENMT Head: Yes normal to inspection Mouth: Normal oral and palatal mucosa present Eyes General: appearance normal, both eyes and all related structures Resp Effort & Inspection: normal respiratory effort Auscultation: clear to auscultation bilaterally Cardio Rhythm: regular rhythm Heart sounds: S1 normal heart sound present and S2 normal heart sound present GI Inspection: Yes normal to inspection Palpation (GI): Soft to palpation Percussion: Yes normal to percussion Auscultation: normal bowel sounds Assessment and Plan Assessment & Plan (1) Acute hepatitis: Code(s): B17.9 - Acute viral hepatitis, unspecified (2) Acute hepatic failure: Code(s): K72.00 - Acute and subacute hepatic failure without coma Plan: For acute hepatitis will obtain records from [facility] for the results of etiology workup . Patient was advised to abstain from any supplements, alcohol, [id number] pain medications. Check CMP today and referred to GI Orders: Orders Ammonia Today B17.9 - Acute viral hepatitis, unspecified, K72.00 - Acute and subacute hepatic failure without coma ~PT, ~INR - Anti Coag Clinic Today B17.9 - Acute viral hepatitis, unspecified, K72.00 - Acute and subacute hepatic failure without coma Comprehensive Met. Panel Today B17.9 - Acute viral hepatitis, unspecified, K72.00 - Acute and subacute hepatic failure without coma Complete Blood Count Auto Diff Today B17.9 - Acute viral hepatitis, unspecified, K72.00 - Acute and subacute hepatic failure without coma Partial Thromboplastin Time Today B17.9 - Acute viral hepatitis, unspecified, K72.00 - Acute and subacute hepatic failure without coma Referrals Gastroenterology Referral B17.9 - Acute viral hepatitis, unspecified, K72.00 - Acute and subacute hepatic failure without coma Coding Level of Care Code Est Pt Level 3 (10070) Diagnoses Acute hepatitis B17.9 Acute hepatic failure K72.00
== END 2023-11-14 15:54 | disposition home or self-care (01) ==
PROVIDERS: PCP Internal Medicine; Visit Provider Internal Medicine
DX: B17.9 Acute viral hepatitis, unspecified (principal); K72.00 Acute and subacute hepatic failure without coma
CPT/HCPCS: 99213

== ENCOUNTER 2023-11-14 09:39 | Outpatient (REF) | payer OTHER, SELFPAY ==
[2023-11-14 10:34] LABS: MANUAL DIFF FLAG NO
[2023-11-14 10:40] LABS: Basophils Absolute Auto 0.2 X10*3/uL (0.0-0.2); Basophils Percent Auto 1.7 % (0-2); Eosinophils Absolute Auto 0.3 X10*3/uL (0.0-0.4); Eosinophils Percent Auto 3.7 % (0-4); Hematocrit 48.8 % (42.0-52.0); Hemoglobin 16.6 g/dl (14.0-18.0); Imm Gran Abs Auto 0.13 X10*3/uL (0.00-0.03); Imm Gran Pct Auto 1.5 % (0.0-0.4); Lymphocytes Absolute Auto 1.8 X10*3/uL (1.2-4.9); Lymphocytes Percent Auto 20.5 % (20-40); Mean Corpuscular Hemoglobin 29.6 pg (27.0-33.0); Mean Corpuscular Volume 87.1 fL (80.0-98.0); Mean Platelet Volume 10.8 fL (9.4-12.4); Monocytes Absolute Auto 0.6 X10*3/uL (0.1-1.2); Neutrophils Absolute Auto 5.8 x10*3/uL (2.0-8.3); Neutrophils Percent Auto 65.6 % (45-73); Platelet Count 166 X10*3/uL (160-400); Red Cell Distribution Width 13.3 % (11.0-16.0); White Blood Count 8.9 X10*3/uL (4.8-10.8)
[2023-11-14 10:46] LABS: Partial Thromboplastin Time 30.2 SEC (26.0-36.8)
[2023-11-14 10:51] LABS: Ammonia 37 umol/L (13-55)
[2023-11-14 10:59] LABS: Alanine Aminotransferase 926 U/L (0-40); Alkaline Phosphatase 114 U/L (39-117); Anion Gap 13 (12-20); Aspartate Amino Transferase 94 U/L (5-37); Bilirubin Total 5.3 mg/dL (0.0-1.0); Blood Urea Nitrogen 9 mg/dL (9-16); Calcium 9.4 mg/dL (8.4-10.2); Carbon Dioxide 22 mmol/L (22-29); Chloride 104 mmol/L (96-108); Estimated Glomerular Filt Rate > 60; Glucose Random 97 mg/dL (60-115); Potassium 4.4 mmol/L (3.3-5.1); Sodium 135 mmol/L (135-145); Total Protein 6.9 g/dL (6.5-8.0)
== END 2023-11-14 09:40 | disposition home or self-care (01) ==
LOC: HO.HMGCLDS 09:39
PROVIDERS: PCP Internal Medicine; Visit Provider Internal Medicine
DX: B17.9 Acute viral hepatitis, unspecified (principal); K72.00 Acute and subacute hepatic failure without coma
CPT/HCPCS: 36415; 80053; 82140; 85025; 85730

== ENCOUNTER 2023-11-24 13:47 | Outpatient (REF) | payer OTHER, SELFPAY ==
[2023-11-24 14:07] LABS: Ammonia 39 umol/L (13-55)
[2023-11-24 15:29] LABS: Alanine Aminotransferase 200 U/L (0-40); Albumin Level 3.9 g/dL (3.5-5.0); Alkaline Phosphatase 103 U/L (39-117); Aspartate Amino Transferase 73 U/L (5-37); Bilirubin Direct 1.4 mg/dL (0.0-0.5); Bilirubin Total 2.2 mg/dL (0.0-1.0); Total Protein 6.9 g/dL (6.5-8.0)
== END 2023-11-24 13:48 | disposition home or self-care (01) ==
LOC: HO.LAB 13:47
PROVIDERS: PCP Internal Medicine; Visit Provider Internal Medicine
DX: B17.9 Acute viral hepatitis, unspecified (principal)
CPT/HCPCS: 36415; 80076; 82140

== ENCOUNTER 2023-12-09 11:58 | Outpatient (REF) | payer OTHER, SELFPAY ==
[2023-12-09 14:34] LABS: Alanine Aminotransferase 62 U/L (0-40); Alkaline Phosphatase 87 U/L (39-117); Aspartate Amino Transferase 78 U/L (5-37); Bilirubin Direct 0.6 mg/dL (0.0-0.5); Bilirubin Total 1.2 mg/dL (0.0-1.0); Total Protein 6.9 g/dL (6.5-8.0)
[2023-12-10 08:37] LABS: HBS Num1 0.37 mIU/mL (0-7.99); HBc Num1 0.09 S/CO (0.00-0.79); HBsAGNum1 0.35 S/CO (0.00-0.99); Hepatitis B Core Antibody Nonreactive (Nonreactive); Hepatitis B Surface Antigen Negative (Negative); ~HepC Num1 0.09 S/CO (0.00-0.79); ~Hepatitis B Surface Antibody NONREACTIVE (Nonreactive); ~Hepatitis C Antibody Nonreactive (Nonreactive)
[2023-12-10 22:58] LABS: Hepatitis BE Antibody NON-REACTIVE (NON-REACTIVE)
== END 2023-12-09 11:59 | disposition home or self-care (01) ==
LOC: HO.HMGCLDS 11:58
PROVIDERS: PCP Internal Medicine; Visit Provider Internal Medicine
DX: B17.9 Acute viral hepatitis, unspecified (principal)
CPT/HCPCS: 36415; 80076; 86704; 86706; 86707; 86803; 87340

== ENCOUNTER 2024-01-12 14:08 | Outpatient (REF) | payer OTHER, SELFPAY ==
[2024-01-12 19:32] LABS: Alanine Aminotransferase 28 U/L (0-40); Albumin Level 4.1 g/dL (3.5-5.0); Alkaline Phosphatase 78 U/L (39-117); Aspartate Amino Transferase 29 U/L (5-37); Bilirubin Direct 0.3 mg/dL (0.0-0.5); Bilirubin Total 0.7 mg/dL (0.0-1.0); Total Protein 6.7 g/dL (6.5-8.0)
== END 2024-01-12 14:09 | disposition home or self-care (01) ==
LOC: HO.HMGCLDS 14:08
PROVIDERS: PCP Internal Medicine; Visit Provider Internal Medicine
DX: B17.9 Acute viral hepatitis, unspecified (principal)
CPT/HCPCS: 36415; 80076

== ENCOUNTER 2024-01-20 14:18 | Outpatient (AMB) | payer OTHER, SELFPAY ==
--- NOTE | 2024-01-20 14:18 | A.OFFVIS_ITS ---
Vital Signs 01/20/24 14:20 Height 6 ft 1 in Weight 194 lb 0.108 oz BMI 25.6 BP 103/66 Blood Pressure Location Lt brachial Position Sitting Pulse 75 Intake Visit Reasons: Colonoscopy screening Intake Note: Ulises presents in the office as a colonoscopy screening. CC: He states that he has a bunch of questions. 2.5 months ago he was in the ICU with acute liver failure. He also has questions about his numbers and any reoccurrence moving forward. On and off pains since he was 16 years old. 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 About couple months ago patient reports that he had severe abdominal discomfort nausea, vomiting and after 3 days feeling like this he went to ER where he was found to have acute hepatitis. Patient admits to taking several different herbal supplements like Arnold worth in addition to occasional alcohol intake as well as Tylenol and Ambien. Patient reports that that day when his symptoms started was almost immediately after he had sausage that he believes was maybe not cooked all the way through. Patient had CT scan and ultrasound and admitted to the hospital. He was seen by Dr. Troy. His levels normalized. Patient no longer drinks alcohol. Is careful about taking any supplements. Patient does admit that when he eats food that is spicy and he eats quickly he will feel like he will be out of breath. Patient denies having reflux per se. He used to get reflux long time ago, however his symptoms are worrisome at this point. Patient is trying to eat healthy. Moves his bowels well now. Denies postprandial abdominal pain however reports occasional postprandial abdominal bloating. [facility] Medical History Chronic allergic rhinitis Pulmonary nodules Eosinophilia Asthma Cavitary pneumonia Hearing loss Annual physical exam Opiate abuse, episodic Tinea corporis Hearing loss Tinnitus Insomnia Surgical History Hx of appendectomy No pertinent past surgical history Family History Father Lymphoma Mother Breast cancer Social History Household Members: Family and Other Household Members Other:: father Housing: House Alcohol intake: current Alcohol intake frequency: a few times a week Alcohol type: hard liquor Patient Tobacco Use Status: Never used Tobacco e-Cigarette/Vaping Use: Never Used Current occupational status: employed 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 Cognitive needs: No Hearing needs: No Vision needs: No Review of Systems Const Denies weight gain and Denies weight loss ENT Reports no additional complaints, Denies dysphagia and Denies odynophagia Card Reports no additional complaints Resp Reports no additional complaints GI Denies abdominal pain, Denies belching, Denies melena, Denies bloating, Denies change in bowel habits, Denies dysphagia, Denies excessive flatus, Denies dyspepsia, Denies heartburn, Denies diarrhea, Denies loose stools, Denies n ausea, Denies odynophagia and Denies vomiting Reports no additional complaints Musc Reports no additional complaints Neuro Reports no additional complaints Psych Reports no additional complaints Endo Reports no additional complaints Physical Exam Vital Signs: Last Vital Signs Pulse 75 01/20/24 14:20 BP 103/66 01/20/24 14:20 BMI result Body Mass Index 25.6 Const General: healthy appearing, no acute distress and well developed Nutritional Appearance: well nourished Orientation/consciousness: patient oriented x3 Resp Effort & Inspection: normal respiratory effort, able to speak in complete sentences, no tracheal deviation and symmetric chest movement Auscultation: clear to auscultation bilaterally Cardio Rate: regular rate GI Inspection: Yes normal to inspection and No distended Palpation (GI): Soft to palpation, not firm, nontender and No hepatosplenomegaly present Auscultation: normal bowel sounds General: Yes no CVA tenderness Back/Spine/Pelvis Back: no CVA tenderness Skin General skin exam: elasticity normal, turgor normal and dry skin Neuro General: patient oriented x3 Psych Appearance: grossly normal Mental Status: mental status grossly normal Assessment & Plan Assessment & Plan (1) Screen for colon cancer: Code(s): Z12.11 - Encounter for screening for malignant neoplasm of colon (2) Acute hepatitis: Code(s): B17.9 - Acute viral hepatitis, unspecified Category: Medical (3) Acute hepatic failure: Code(s): K72.00 - Acute and subacute hepatic failure without coma Category: Medical Qualifiers: Hepatic coma status: without hepatic coma Qualified Code(s): K72.00 - Acute and subacute hepatic failure without coma (4) Postprandial epigastric pain: Code(s): R10.13 - Epigastric pain (5) Postprandial abdominal bloating: Code(s): R14.0 - Abdominal distension (gaseous) Plan Patient will start taking omeprazole daily. Patient will try to eat smaller meals and more often, avoid dietary triggers. Staying upright for minimum 3 hours after meals discussed with patient. Most likely his symptoms of breathlessness is from eating spicy food and large meals at once. Ultrasound and CT scan reviewed. Gallbladder contracted questionable gallbladder wall thickness. Patient will be sent for HIDA scan to rule out biliary dyskinesia. I will see him in 1 month so we can discuss him going for colonoscopy as well as upper endoscopy. He is agreeable to this plan and verbalizes understanding of instructions. He was given the opportunity to ask questions and all questions answered. Thank you for allowing me to participate in his care Orders: Orders NM hepatobiliary w pharm Today R10.11 - Right upper quadrant pain Medications: New omeprazole 20 mg PO DAILY 30 caps 3RF K21.9 - Gastro-esophageal reflux disease without esophagitis Coding Level of Care Code New Pt Level 4 (10435) Diagnoses Screen for colon cancer Z12.11 Acute hepatitis B17.9 Acute liver failure without hepatic coma K72.00 Hepatic coma status: without hepatic coma Postprandial epigastric pain R10.13 Postprandial abdominal bloating R14.0 Time Spent (min) 50 Comment 30 minutes spent with patient and additional 20 minutes spent reviewing his records
[2024-01-20 14:20] VITALS: BP 103/66; PULSE 75; BMI 25.6
== END 2024-01-20 14:57 | disposition home or self-care (01) ==
PROVIDERS: PCP Internal Medicine; Visit Provider Nurse Practitioner Family
DX: Z12.11 Encounter for screening for malignant neoplasm of colon (principal); B17.9 Acute viral hepatitis, unspecified; K72.00 Acute and subacute hepatic failure without coma; R10.13 Epigastric pain; R14.0 Abdominal distension (gaseous); Z01.818 Encounter for other preprocedural examination
CPT/HCPCS: 99204

== ENCOUNTER → 2024-01-20 14:18 | Outpatient (BNVA) | payer OTHER, SELFPAY | PROVIDERS: PCP Internal Medicine; Visit Provider Nurse Practitioner Family | DX: Z12.11 Encounter for screening for malignant neoplasm of colon (principal); K72.00 Acute and subacute hepatic failure without coma; R10.13 Epigastric pain; R14.0 Abdominal distension (gaseous); B17.9 Acute viral hepatitis, unspecified | CPT/HCPCS: 99202 ==

== ENCOUNTER 2024-02-25 13:13 | Outpatient (AMB) | payer OTHER, SELFPAY ==
--- NOTE | 2024-02-25 13:16 | MHC.OFFVIS ---
Vital Signs 02/25/24 13:18 Height 6 ft 1 in Weight 190 lb 14.725 oz BMI 25.2 BP 142/78 H Blood Pressure Location Rt brachial Position Sitting Pulse 84 Pulse Source Pulse Oximeter Pulse Oximetry (%) 98 Oxygen Delivery Method Room Air Intake Visit Reasons: 4 week follow up Intake Note: Reza presents in office today for a scheduled 4 week FUV. CC; Pt has NM study scheduled for 03/01/2024. Pt was rx'd omeprazole 20 mg at their last visit. Pt reports that they have not been taking their omeprazole as instructed as they have often forgot. Pt is still experiencing some GI upset and they are unsure if that is related to recent travels outside the [place] or if that is a more chronic issue. 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 Patient will try to eat smaller meals and more often, avoid dietary triggers. Staying upright for minimum 3 hours after meals discussed with patient. Most likely his symptoms of breathlessness is from eating spicy food and large meals at once. Ultrasound and CT scan reviewed. Gallbladder contracted questionable gallbladder wall thickness. Patient will be sent for HIDA scan to rule out biliary dyskinesia. I will see him in 1 month so we can discuss him going for colonoscopy as well as upper endoscopy. He is agreeable to this plan and verbalizes understanding of instructions. He was given the opportunity to ask questions and all questions answered. ? Thank you for allowing me to participate in his care Orders Orders NM hepatobiliary w pharm Today R10.11 Medications New omeprazole 20 mg PO DAILY 30 caps 3RF K21.9 TODAY'S VISIT: Patient is here today for follow-up. Patient reports that he just return couple days ago from trip to [facility] and [place]. Patient reports that when he was in [place] he was feeling very sick. Unable to move his bowels. Patient reports that when he had beer he had severe epigastric discomfort. Patient also reports epigastric pain with drinking water when in [place]. Patient states that he was drinking tap water as well as bottled water and felt epigastric pain. Patient also reports cold-like symptoms postnasal drip and cough. Patient was not taking omeprazole and is not taking omeprazole yet. Patient states that he forgot to take it. Patient is not taking anything to help him move his bowels at this time. Admits to drinking alcohol beer and whiskey when away. Patient denies any abdominal pain or discomfort. Patient denies any melena, hematochezia, unintentional weight loss or ribbon like stools. Patient reports dyspepsia without dysphagia or odynophagia. [facility] Medical History Chronic allergic rhinitis Pulmonary nodules Eosinophilia Asthma Cavitary pneumonia Hearing loss Annual physical exam Opiate abuse, episodic Tinea corporis Hearing loss Tinnitus Insomnia Surgical History Hx of appendectomy No pertinent past surgical history Family History Father Lymphoma Mother Breast cancer Social History Household Members: Family and Other Household Members Other:: father Housing: House Alcohol intake: current Alcohol intake frequency: a few times a week Alcohol type: hard liquor Patient Tobacco Use Status: Never used Tobacco e-Cigarette/Vaping Use: Never Used Current occupational status: employed 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 Cognitive needs: No Hearing needs: No Vision needs: No Review of Systems Const Denies weight gain and Denies weight loss ENT Reports no additional complaints, Denies dysphagia and Denies odynophagia Card Reports no additional complaints Resp Reports no additional complaints GI Denies abdominal pain, Denies belching, Denies melena, Denies bloating, Reports constipation, Denies dysphagia, Denies excessive flatus, Denies dyspepsia, Reports heartburn, Denies diarrhea, Denies loose stools, Denies nausea, Denies odynophagia and Denies vomiting Reports no additional complaints Musc Reports no additional complaints Neuro Reports no additional complaints Psych Reports no additional complaints Endo Reports no additional complaints Physical Exam Vital Signs: Last Vital Signs Pulse 84 02/25/24 13:18 BP 142/78 H 02/25/24 13:18 Pulse Ox 98 02/25/24 13:18 Oxygen Delivery Method Room Air 02/25/24 13:18 BMI result Body Mass Index 25.2 Const General: healthy appearing, no acute distress and well developed Nutritional Appearance: well nourished Orientation/consciousness: patient oriented x3 Resp Effort & Inspection: normal respiratory effort, able to speak in complete sentences, no tracheal deviation and symmetric chest movement Auscultation: clear to auscultation bilaterally Cardio Rate: regular rate GI Inspection: Yes normal to inspection and No distended Palpation (GI): Soft to palpation, not firm, nontender and No hepatosplenomegaly present Auscultation: normal bowel sounds General: Yes no CVA tenderness Back/Spine/Pelvis Back: no CVA tenderness Skin General skin exam: elasticity normal, turgor normal and dry skin Neuro General: patient oriented x3 Psych Appearance: grossly normal Mental Status: mental status grossly normal Assessment & Plan Assessment & Plan (1) Acute hepatitis: Code(s): B17.9 - Acute viral hepatitis, unspecified Category: Medical (2) Acute hepatic failure: Code(s): K72.00 - Acute and subacute hepatic failure without coma Category: Medical Qualifiers: Hepatic coma status: without hepatic coma Qualified Code(s): K72.00 - Acute and subacute hepatic failure without coma (3) Screen for colon cancer: Code(s): Z12.11 - Encounter for screening for malignant neoplasm of colon (4) Postprandial epigastric pain: Code(s): R10.13 - Epigastric pain (5) Postprandial abdominal bloating: Code(s): R14.0 - Abdominal distension (gaseous) Plan Patient was instructed to take omeprazole daily. Continue avoiding dietary triggers and late night snacking. Staying upright for minimum 3 hours after meals discussed with patient. Increase fluid intake and activity to promote better bowel motility. Low FODMAP diet encouraged. Will send message to surgical schedulers to book endoscopy and colonoscopy and I will see patient in 3 months. Patient has HIDA scan March 01, will call patient with results. He is agreeable to this plan and verbalizes understanding of instructions. He was given the opportunity to ask questions and all questions answered. Thank you for allowing me to participate in his care Coding Level of Care Code Est Pt Level 3 (89180) Diagnoses Acute hepatitis B17.9 Acute liver failure without hepatic coma K72.00 Hepatic coma status: without hepatic coma Screen for colon cancer Z12.11 Postprandial epigastric pain R10.13 Postprandial abdominal bloating R14.0 Time Spent (min) 30 Comment 20 minutes spent with patient and additional 10 minutes spent reviewing his records
[2024-02-25 13:18] VITALS: BP 142/78; PULSE 84; O2SAT 98; BMI 25.2
== END 2024-02-25 14:11 | disposition home or self-care (01) ==
PROVIDERS: PCP Internal Medicine; Visit Provider Nurse Practitioner Family
DX: B17.9 Acute viral hepatitis, unspecified (principal); K72.00 Acute and subacute hepatic failure without coma; Z12.11 Encounter for screening for malignant neoplasm of colon; R10.13 Epigastric pain; R14.0 Abdominal distension (gaseous)
CPT/HCPCS: 99213

== ENCOUNTER → 2024-02-25 13:13 | Outpatient (BNVA) | payer OTHER, SELFPAY | PROVIDERS: PCP Internal Medicine; Visit Provider Nurse Practitioner Family | DX: B17.9 Acute viral hepatitis, unspecified (principal); K72.00 Acute and subacute hepatic failure without coma; R10.13 Epigastric pain; R14.0 Abdominal distension (gaseous) | CPT/HCPCS: 99212 ==

== ENCOUNTER → 2024-03-01 10:45 | Outpatient (REF) | payer OTHER, SELFPAY | LOC: HO.NUCMED 10:45 | PROVIDERS: Visit Provider Nurse Practitioner Family | DX: Z13.89 Encounter for screening for other disorder (principal) ==

== ENCOUNTER 2024-03-10 11:22 | Outpatient (AMB) | payer OTHER, SELFPAY ==
[2024-03-10 11:30] VITALS: BP 120/88; PULSE 82; O2SAT 98; BMI 25.6
--- NOTE | 2024-03-10 11:30 | MHC.OFFVIS ---
Vital Signs 03/10/24 11:30 Height 6 ft 1 in Weight 194 lb BMI 25.6 BP 120/88 Blood Pressure Location Rt brachial Position Sitting Pulse 82 Pulse Source Pulse Oximeter Pulse Oximetry (%) 98 Oxygen Delivery Method Room Air Intake Visit Reasons: f/u appt per K.H-LVM Intake Note: Patient presents for follow up . patient states everything is still the same. Allergies doxycycline Allergy (Verified 03/10/24 11:33) burning skin sensation Medication List - Last Reconciled 03/10/24 by SAMANTHA Zheng buprenorphine-naloxone 2-0.5 mg (Suboxone) 2 mg sublingual DAILY omeprazole 20 mg PO DAILY zolpidem (Ambien) 15 mg PO BEDTIME PRN HPI Comments Details: 49-yr-old male presents for f/u visit. Pt reports he recently had COVID-19 after traveling to [facility]. He was staretd on Omeprazole- now follwoing w/ GI after an episode of acute hepatic failure- per ER notes liekly d/t starting a new OTC supplement. Last f/u LFTs and ammonia levels- in December 2023- WNL. He continues to sleep well w/ Ambien 20mg qhs. Denies parasomnias. States he continues to use suboxone prn tinnitus. 90-day PAP Compliance datat- shows no use. He never did f/u sleep study- usually cannot be away from home as he cares for his father who is ill- his father went to respite while pt had traveled outside of the country. [facility] Medical History Chronic allergic rhinitis Pulmonary nodules Eosinophilia Asthma Cavitary pneumonia Hearing loss Annual physical exam Opiate abuse, episodic Tinea corporis Hearing loss Tinnitus Insomnia Surgical History Hx of appendectomy No pertinent past surgical history Family History Father Lymphoma Mother Breast cancer Social History Household Members: Family and Other Household Members Other:: father Housing: House Alcohol intake: current Alcohol intake frequency: a few times a week Alcohol type: hard liquor Patient Tobacco Use Status: Never used Tobacco e-Cigarette/Vaping Use: Never Used Current occupational status: employed 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 Cognitive needs: No Hearing needs: No Vision needs: No Physical Exam Vital Signs: Last Vital Signs Pulse 82 03/10/24 11:30 BP 120/88 03/10/24 11:30 Pulse Ox 98 03/10/24 11:30 Oxygen Delivery Method Room Air 03/10/24 11:30 BMI result Body Mass Index 25.6 Const General: cooperative and no acute distress Orientation/consciousness: patient oriented x3 Resp Effort & Inspection: normal respiratory effort and able to speak in complete sentences Neuro General: patient oriented x3 Cranial nerves: Yes CN's II-XII intact bilaterally Cognition (Neuro): normal cognition Psych Appearance: grossly normal Mental Status: mental status grossly normal Speech and movement: Normal speech and movement present Affect: normal affect Attitude: cooperative Assessment & Plan Assessment & Plan (1) Insomnia: Comment: Sleep center [facility] Radha Khoury [employer] prescribes Ambien Code(s): G47.00 - Insomnia, unspecified Category: Medical (2) Central sleep apnea: Code(s): G47.31 - Primary central sleep apnea Category: Medical (3) Obstructive sleep apnea: Code(s): G47.33 - Obstructive sleep apnea (adult) (pediatric) Category: Medical Plan Hold in-lab PSG order- pt unable to do d/t caregiver strain. May hold CPAP 6 cmH2O nightly w/ EPR 3- as on PAP, pt had increased central sleep apneas. Continue Ambien 10-20mg qhs. Clean and change CPAP machine and supplies regularly. Medications: Changed From zolpidem (Ambien) 15 mg PO BEDTIME PRN insomnia To zolpidem (Ambien) 20 mg (2 x 10 mg) PO BEDTIME 30 days PRN 60 tabs 5RF insomnia Coding Level of Care Code Est Pt Level 4 (35793) Diagnoses Insomnia G47.00 Central sleep apnea G47.31 Obstructive sleep apnea G47.33
== END 2024-03-10 12:10 | disposition home or self-care (01) ==
PROVIDERS: PCP Internal Medicine; Visit Provider Nurse Practitioner Family
DX: G47.00 Insomnia, unspecified (principal); G47.31 Primary central sleep apnea; G47.33 Obstructive sleep apnea (adult) (pediatric)
CPT/HCPCS: 99214

== ENCOUNTER → 2024-03-10 11:22 | Outpatient (BNVA) | payer OTHER, SELFPAY | PROVIDERS: PCP Internal Medicine; Visit Provider Nurse Practitioner Family | DX: G47.33 Obstructive sleep apnea (adult) (pediatric) (principal); G47.00 Insomnia, unspecified; G47.31 Primary central sleep apnea | CPT/HCPCS: 99212 ==

== ENCOUNTER 2024-03-19 13:29 | Outpatient (AMB) | payer OTHER, SELFPAY ==
[2024-03-19 13:32] VITALS: BP 122/76; PULSE 88; O2SAT 96; BMI 25.1
--- NOTE | 2024-03-19 13:32 | MHC.PC.OV ---
Vital Signs 03/19/24 13:32 Height 6 ft 1 in Weight 190 lb BMI 25.1 BP 122/76 Blood Pressure Location Rt brachial Position Sitting Pulse 88 Pulse Source Pulse Oximeter Pulse Oximetry (%) 96 Oxygen Delivery Method Room Air Intake Visit Reasons: PE Intake Note: Pt is here today for PE. Allergies doxycycline Allergy (Verified 03/10/24 11:33) burning skin sensation Medication List - Last Reconciled 03/19/24 by Mariola Cifuentes MD buprenorphine-naloxone 2-0.5 mg (Suboxone) 2 mg sublingual DAILY omeprazole 20 mg PO DAILY zolpidem (Ambien) 20 mg (2 x 10 mg) PO BEDTIME PRN 30 days Tobacco use date assessed: 03/19/24 Dental Screening Dental Screen Date: 03/19/24 Did you have a dental visit in the last 12 months?: Yes Did you have a dental problem in the last 6 months where you did not have access to dental care?: No Was dental information given to patient?: Patient has dentist HPI PE HPI Details Pt presents for PE. PFSH Medical History Chronic allergic rhinitis Pulmonary nodules Eosinophilia Asthma Cavitary pneumonia Hearing loss Annual physical exam Opiate abuse, episodic Tinea corporis Hearing loss Tinnitus Insomnia Surgical History (Updated 03/19/24 @ 14:02 by ABDI Camacho) Hx of appendectomy Family History Father Lymphoma Mother Breast cancer Social History Household Members: Family and Other Household Members Other:: father Housing: House Alcohol intake: current Alcohol intake frequency: a few times a week Alcohol type: hard liquor Patient Tobacco Use Status: Never used Tobacco e-Cigarette/Vaping Use: Never Used service: No Current occupational status: employed 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 1. Little interest or pleasure in doing things: not at all 2. Feeling down, depressed, or hopeless: not at all 3. Trouble falling or staying asleep, or sleeping too much: more than half the days 4. Feeling tired or having little energy: more than half the days 5. Poor appetite or overeating: not at all 6. Feeling bad about yourself - or that you are a failure or have let yourself or your family down: not at all 7. Trouble concentrating on things, such as reading the newspaper or watching television: not at all 8. Moving or speaking so slowly that other people could have noticed. Or the opposite - being so fidgety or restless that you have been moving around a lot more than usual: not at all 9. Thoughts that you would be better off or of hurting yourself in some way: not at all Total score: 4 Depression Screening Interpretation: Negative Depression Screening Done: Yes Source: Developed by Drs. Gilberto Pradhan, Tabby Corbin, Manish Conteh and colleagues, with an educational chanel from [employer]. Thrive Questionnaire Date Thrive assessed: 03/19/24 I am a: Patient What is your living situation today?: I have a steady place to live Within the past 12 months, did the food you bought not last and you didn't have the money to get more?: Never true Within the past 12 months, did you worry whether your food would run out before you got money to buy more?: I choose not to answer this question Do you have trouble paying for medicines?: I choose not to answer this question Do you have trouble getting transportation to medical appointments?: I choose not to answer this question Do you have trouble paying your heating and electricity bill?: I choose not to answer this question Do you have trouble taking care of your child, family member or friend?: I choose not to answer this question Do you have trouble with day-to-day activities such as bathing, preparing meals, shopping, managing finances, etc.?: I choose not to answer this question Are you currently unemployed and looking for a job?: I choose not to answer this question Are you interested in more education?: I choose not to answer this question Please select the resources that you would like help with: Housing/Senior Living Currently or been in a relationship where the following occur: I choose not to answer THRIVE Score: 0 AUDIT C Alcohol Use Questionnaire (AUDIT-C) 1. How often do you have a drink containing alcohol?: 2-3 times a week 2. How many drinks containing alcohol do you have on a typical day when you are drinking?: 1 or 2 3. How often do you have six or more drinks on one occasion?: Never Total Score: 3 KESHAV-7 AMB Questionnaire KESHAV-7 Date KESHAV - 7 assessed: 03/19/24 Feeling nervous, anxious, or on edge: 0 = Not at all Not being able to stop or control worryin = Not at all Worrying too much about different things: 0 = Not at all Trouble relaxin = Not at all Being so restless that it is hard to sit still: 0 = Not at all Becoming easily annoyed or irritable: 0 = Not at all Feeling afraid as if something awful might happen: 0 = Not at all Total KESHAV-7 score (0-4 normal; 5-9 mild; 10-14 moderate; 15-21 severe): 0 Source: Developed by Drs. Gilberto Pradhan, Tabby Corbin, Manish Conteh and colleagues, with an educational chanel from [employer]. Review of Systems Const All systems reviewed & are unremarkable except as noted in HPI and below Reports no additional complaints Eyes Reports no additional complaints ENT Reports no additional complaints Card Reports no additional complaints Resp Reports no additional complaints GI Reports no additional complaints Reports no additional complaints Physical exam (Primary Care) Vital Signs: Last Vital Signs Pulse 88 03/19/24 13:32 BP 122/76 03/19/24 13:32 Pulse Ox 96 03/19/24 13:32 Oxygen Delivery Method Room Air 03/19/24 13:32 BMI result Body Mass Index 25.1 Tobacco/Smoking Status: Tobacco use Status Tobacco use date assessed 03/19/24 03/19/24 13:37 Patient Tobacco Use Status Never used Tobacco 03/19/24 13:37 e-Cigarette/Vaping Use Never Used 03/19/24 13:37 PHQ-9: PHQ-9 Score PHQ-9: Total score 4 03/19/24 13:55 Depression Screening Interpretation: Negative Thrive Assessment: Date of Thrive Assessment Date Thrive assessed 03/19/24 03/19/24 13:37 Currently or been in a relationship where the following occur: I choose not to answer Const General: no acute distress HENMT Head: Yes normal to inspection Ears: hearing grossly normal bilaterally General nose exam: Normal external nose present Face and sinus: Yes normal facial exam Mouth: Normal oral and palatal mucosa present Throat: Yes posterior oropharynx normal Eyes General: appearance normal, both eyes and all related structures Neck Neck: Yes supple Resp Effort & Inspection: normal respiratory effort Auscultation: clear to auscultation bilaterally Cardio Rhythm: regular rhythm Heart sounds: S1 normal heart sound present and S2 normal heart sound present GI Inspection: Yes normal to inspection Palpation (GI): Soft to palpation Percussion: Yes normal to percussion Auscultation: normal bowel sounds Assessment and Plan Assessment & Plan (1) Opiate abuse, episodic: Comment: On Suboxone Code(s): F11.10 - Opioid abuse, uncomplicated Plan: Follow-up with Suboxone Clinic (2) Annual physical exam: Code(s): Z - Encounter for general adult medical examination without abnormal findings Plan: Well-balanced diet regular exercise discussed with the patient he will return for fasting blood work. Patient will call GI to schedule colonoscopy Orders: Orders Comprehensive [place]. Panel Fast Today - Opioid abuse, uncomplicated, . - Encounter for general adult medical examination without abnormal findings Lipid Panel Today F1.10 - Opioid abuse, uncomplicated, . - Encounter for general adult medical examination without abnormal findings Complete Blood Count Auto Diff Today .10 - Opioid abuse, uncomplicated, . - Encounter for general adult medical examination without abnormal findings UA w Microscopic Today .10 - Opioid abuse, uncomplicated, . - Encounter for general adult medical examination without abnormal findings Coding Level of Care Code Est Pt Prev Care 40-64y(81643) Diagnoses Opiate abuse, episodic F11.10 Annual physical exam Z.
== END 2024-03-19 14:32 | disposition home or self-care (01) ==
PROVIDERS: PCP Internal Medicine; Visit Provider Internal Medicine
DX: Z00.00 Encounter for general adult medical examination without abnormal findings (principal); F11.10 Opioid abuse, uncomplicated
CPT/HCPCS: 99396

== ENCOUNTER 2025-03-18 14:02 | Outpatient (AMB) | payer OTHER, SELFPAY ==
--- OUTSIDE RECORDS SUMMARY | 2025-03-18 14:05 | XMS_ITS ---
Author Name [facility] Organization Unknown History of Medication Use Medication Directions Dispensed Refills Start Date End Date Stat us Suboxone 2-0.5 MG per SL film TAKE 1 FILM SUBLINGUALLY EVERY DAY 10/27/2023 active Problems Problem Status Onset Date Problem Type Date of Resoluti on Source Acute liver failure without hepatic coma active 2023-11-10 ProblemAct [facility] Insomnia active 2023-11-10 ProblemAct [facility] Encounters Encounter Type Encounter Reason Primary Diagnosis Location Date Inpatient Acute and subacute hepatic failure without coma Acute and subacute hepatic failure without coma Fullscreen 11/09/2023 Care Team Organization Name Specialty Phone Email Start Date End Da te Fullscreen Mariola Cifuentes Primary Care 11/10/2023 Fullscreen 11/10/2023 11/10/2024 Fullscreen 11/10/2023
--- OUTSIDE RECORDS SUMMARY | 2025-03-18 14:05 | XMS_ITS | Clinical Summary ---
Author Organization [employer] Address [address] [place] [address] Care Team Providers Care Research Epidemiologist Name Role Phone Unavailable Primary Care Provider Unavailabl e Allergies Active Allergy Reactions Criticality Noted Date Comments Codeine 08/08/2023 Morphine 08/08/2023 erythema and itching to arm after IV morphine injection in hospital. Per patient, has tolerated PO morphine in past. Prednisone 08/08/2023 Medications Suboxone 2-0.5 MG per sublingual film TAKE 1 FILM SUBLINGUALLY EVERY DAY Active zolpidem (Ambien) 10 MG tablet TAKE 2 TABLETS BY MOUTH AT BEDTIME NEEDED FOR INSOMNIA FOR 30 DAYS Active Active Problems Problem Noted Date Diagnosed Date Fractured dental jehovah's witness with loss of materi al 08/08/2023 Encounters Date Type Department Care Team Description 01/28/2025 9:00 AM EDT Office Visit [facility] [address] [place] [address] Kuldip White Dental calculus (Primary Dx) 01/25/2025 10:00 AM EDT Office Visit [facility] [address] [place] [address] Marcella Childs DDS from Last 3 Months Social History Tobacco Use Types Packs/Day Years Used Date Smoking Tobacco: Never Smokeless Tobacco: Never Tobacco Cessation:Counseling Given: Not Answered Alcohol Use Standard Drinks/Week Comments Not Currently 0 (1 standard drink = 0.6 oz pur e alcohol) Sex and Gender Information Value Date Recorded Sex Assigned at Male 06/24/2022 10:31 AM EDT Legal Sex Male 10:31 AM EDT Gender Identity Male 06/24/2022 10:31 AM EDT Sexual Orientation Straight 06/24/2022 10 :31 AM EDT Last Filed Vital Signs Vital Sign Reading Time Taken Comments Blood Pressure 104/64 01/28/2025 9:02 AM EDT Pulse 65 01/28/2025 9:02 AM EDT Temperature - - Respiratory Rate - - Oxygen Saturation - - Inhaled Oxygen Concentration - - Weight - - Height - - Body Mass Index - - Plan of Treatment Upcoming Encounters Date Type Department Care Team (Late st Contact Info) Description 03/24/2025 1:00 PM EDT Office Visit [facility] [address] [place] [address] Waldo Marcus, DDS [address] [place], [place] [id number] Health Maintenance Due Date Last Done Comments CT Colonography 1976 Colonoscopy 1976 Colorectal Cancer Screening 1976 Depression Screening 1976 FIT DNA/Cologuard 1976 FIT 1976 FOBT 1976 Lipid Panel 1976 SDOH Screening 1976 Sigmoidoscopy 1976 Disability Screening 1976 Alcohol/Substance Use Screening 1988 Family Planning (PISQ) 01/29/1991 Hepatitis C Screening 01/29/1994 Hepatitis B Vaccines (1 of 3 - 19+ 3-dose series) 01/29/1995 DTaP/Tdap/Td Vaccines (1 - Tdap) 06/04/2006 06/03/2006 Hepatitis A Vaccines (2 of 2 - Risk 2-dose series) 12/02/2006 06/03/2006 Dental Oral Exam 03/03/2024 09/02/2023, 05/2022, 04/01/2019, Additional history exists COVID-19 Vaccine ( - season) 2024 Influenza Vaccine (#1) 2025 Dental Prophylaxis 07/31/2025 01/28/2025, 0 09/02/2023, 05/09/2022, Additional history exists Tobacco Screening 01/28/2026 01/28/2025 Dental X-Ray: Bitewings 01/29/2026 01/29/20 25, 01/25/2025, 09/02/2023, Additional history exists Zoster Vaccines (1 of 2) 01/29/2026 Dental X-Ray: Full Mouth 2028 025, 04/03/2022, 04/08/2017 RSV Patients and Patients Aged 60 years or older (1 - 1-dose 75+ series) 01/29/2051 HIV Screening Completed 11/10/2023 HIB Vaccines Aged Out No longer eligi ble based on patient's age to complete this topic HPV Vaccines Aged Out No longer eligi ble based on patient's age to complete this topic IPV Vaccines Aged Out No longer eligi ble based on patient's age to complete this topic Meningococcal B Vaccine Aged Out No l onger eligible based on patient's age to complete this topic Meningococcal Vaccine Aged Out No deng lucinda eligible based on patient's age to complete this topic Pneumococcal Vaccine: Pediatrics (0 to 5 Years) and At-Risk Patients (6 to 49) Years Aged Out No longer eligible based on patient's age to complete this topic RSV under 20 months Aged Out No longe r eligible based on patient's age to complete this topic Rotavirus Vaccines Aged Out No longer eligible based on patient's age to complete this topic Procedures Procedure Name Priority Date/Time Associated Diagnosis Comments COMPREHENSIVE PERIODONTAL EVALUATION - NEW OR ESTABLISHED PATIENT Routine 01/28/2025 9:00 AM EDT ORAL HYGIENE INSTRUCTIONS Routine 2024 9:00 AM EDT INTRAORAL - COMPLETE SERIES OF RADIOGRAPHIC IMAGES Routine 01/28/2025 9:00 AM EDT PROPHYLAXIS - ADULT Routine 01/28/2025 9 :00 AM EDT CASE PRESENTATION, DETAILED AND EXTENSIVE TREATMENT PLANNING Routine 01/28/2025 9:00 AM EDT CASE PRESENTATION, DETAILED AND EXTENSIVE TREATMENT PLANNING Routine 01/25/2025 10:00 AM EDT BITEWING - SINGLE RADIOGRAPHIC IMAGE Routine 01/25/2025 10:00 AM EDT INTRAORAL - PERIAPICAL FIRST RADIOGRAPHIC IMAGE Routine 01/25/2025 10:00 AM EDT 18,19 LIMITED ORAL EVALUATION - PROBLEM FOCUSED Routine 01/25/2025 10:00 AM EDT PERIODIC ORAL EVALUATION - ESTABLISHED PATIENT Routine 09/02/2023 2:00 PM EST from Last 3 Months or Most Recently Relevant to Health Maintenance [facility] AD[facility]
--- OUTSIDE RECORDS SUMMARY | 2025-03-18 14:05 | XMS_ITS | Clinical Summary ---
Author Organization [facility] Address [address] [place] [address] Care Team Providers Care Director Of Programming Name Role Phone Mariola Cifuentes MD Primary Care Provider [phone] Allergies No known active allergies Medications Suboxone 2-0.5 MG per SL film TAKE 1 FILM SUBLINGUALLY EVERY DAY Active Active Problems Problem Noted Date Diagnosed Date Acute liver failure without hepatic coma 024 Insomnia 11/10/2023 Family History Medical History Relation Name Comments Hypertension Father Lymphoma Father Stroke Father Breast cancer Mother Relation Name Status Comments Father Alive Mother (Age 68) Hx Breast CancerDied from a cardiac arrest Sister Alive Social History Tobacco Use Types Packs/Day Years Used Date Smoking Tobacco: Never Smokeless Tobacco: Never Tobacco Cessation:Counseling Given: Not Answered Alcohol Use Standard Drinks/Week Comments Yes 17 (1 standard drink = 0.6 oz pu re alcohol) [facility] Utilities Answer Date Recorded In the past 12 months has Evom[employer], oil, or water Desi [employer]its threatened to shut off services in your home? No 11/10/2023 AUDIT-C Answer Date Recorded Q1: How often do you have a drink containing alc ohol? 2-3 times a week 11/09/2023 Q2: How many drinks containi ng alcohol do you have on a typical day when you are drinking? 3 or 4 11/09/2023 Q3: How often do you have si x or more drinks on one occasion? Never 11/09/2023 Hunger Vital Sign Answer Date Recorded Within the past 12 months, y ou worried that your food would run out before you got the money to buy more. Never true 11/10/19 24 Within the past 12 months, t he food you bought just didn't last and you didn't have money to get more. Never true 11/10/2023 PRAPARE - Transportation Answer Date Re corded In the past 12 months, has l ack of transportation kept you from medical appointments or from getting medications? No 10/23 In the past 12 months, has l ack of transportation kept you from meetings, work, or from getting things needed for daily living? No 11/10/2023 Housing Stability Vital Sign Answer Francisco e Recorded In the last 12 months, was t here a time when you were not able to pay the mortgage or rent on time? No 11/10/2023 In the last 12 months, how many places have you lived? 1 11/10/2023 In the last 12 months, was t here a time when you did not have a steady place to sleep or slept in a senior care (including now)? 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 Not on file Not on file Last Filed Vital Signs Vital Sign Reading Time Taken Comments Blood Pressure 130/68 11/11/2023 4:00 AM EDT Pulse 89 11/11/2023 4:00 AM EDT Temperature 36.7 C (98 F) 11/11/2023 4:00 AM EDT Respiratory Rate 16 11/11/2023 4:00 AM EDT Oxygen Saturation 100% 11/11/2023 9:00 AM EDT Inhaled Oxygen Concentration - - Weight 92 kg (202 lb 13.2 oz) 11/09/2023 11:35 P M EDT Height 185.4 cm (6' 1 ) 11/09/2023 11:35 PM EDT Body Mass Index 26.76 11/09/2023 11:35 PM EDT Plan of Treatment Health Maintenance Due Date Last Done Comments DTaP/Tdap/Td Vaccines (1 - Tdap) 01/29/1995 Hepatitis B Vaccines (1 of 3 - 19+ 3-dose series) 01/29/1995 Colonoscopy 01/29/2021 COVID-19 Vaccine ( - 2023-2 5 season) 2024 Influenza Vaccine 03/25/2025 HIV Screening Completed 11/10/2023 Hepatitis C Virus Screening Completed 11/10/2023 Pneumococcal Vaccine: Pediat stefan (0-5 Years) and At-Risk Patients (6 to 49 Years) Aged Out No longer eligible b ased on patient's age to complete this topic Procedures Procedure Name Priority Date/Time Associated Diagnosis Comments HIV 1/2 AG/AB CMIA REFLEX TO CONFIRMATION Routine 11/10/2023 1:03 AM EDT HEPATITIS PANEL, ACUTE Routine 11/10/2023 1:03 AM EDT from Last 3 Months or Most Recently Relevant to Health Maintenance Results * HIV 1/2 Ag/Ab CMIA Reflex to Confirmation (11/10/2023 1:03 AM EDT) HIV 1/2 Ag/Ab CMIA Nonreactive Nonreactive 11/11/2023 11:47 AM EDT [facility] Comment: Results show no evidence of infection by HIV 1/2. If clinically indicated, repeat CMIA or test by nucleic acid amplification. HIV 1/2 Antigen/Antibody CMIA reflex to confirmation AND HIV-1 RNA viral load recommended in patients who are taking or have recently taken PrEP. Blood specimen (specimen) Serum specimen / Unknown 11/10/2023 1:03 AM EDT 11/10/2023 1:55 AM EDT us Victorina Deni [facility] BLOOD ORDERABLES Final Resul t [facility] [address] [place] [address], * Hepatitis Panel, Acute (11/10/2023 1:03 AM EDT) Hepatitis A Antibody IgM Nonreactive Nonreactive S/CO 11/11/2023 11:47 AM EDT [facility] Hepatitis B Core Antibody IgM Nonreactive Nonreactive 11/11/2023 11:47 AM EDT [facility] Hepatitis B Surface Ag Screen Nonreactive Nonreactive 11/11/2023 11:47 AM EDT [facility] Hepatitis C Antibody 0.13 0.00 - 0.79 S/CO ratio 11/11/2023 11:47 AM EDT [facility] Hepatitis C Antibody Interpretation Nonreactive Nonreactive 11/11/2023 11:47 AM EDT [facility] Hepatitis Interpretation: Results inconsistent with acute Hepatitis A, B or C Virus infection. 11/11/2023 11:47 AM EDT [facility] Blood specimen (specimen) Serum specimen / Unknown 11/10/2023 1:03 AM EDT 11/10/2023 1:55 AM EDT us Victorina Deni [facility] BLOOD ORDERABLES Final Resul t [facility] [address] from Last 3 Months or Most Recently Relevant to Health Maintenance Insurance [facility] Advance Directives Documents on File Type Date Recorded Patient Environmental Protection Inspector Expl anation Advance Directive-Scan 11/10/2023 Lacie Phillips [facility] 11/09/2023 * Full Code (Latest Code Status on File) Date Activated Date Inactivated Comments 11/10/2023 12:04 AM Question Answer Comments Decision Thoroughly Discussed with: Patient Healthcare Agents on File Name Relationship [facility] Alan Other 1. [facility] Care Teams Director Of Programming Relationship Specialty Start Date End Date Mariola Cifuentes MD [address] [place] [address] PCP - General 11/10/23
[2025-03-18 14:08] VITALS: BP 118/76; PULSE 67; RESP 16; TEMP 36.7; O2SAT 97; BMI 24.9
--- NOTE | 2025-03-18 14:08 | MHC.PC.OV ---
Vital Signs 03/18/25 14:08 Height 6 ft 1 in Weight 189 lb BMI 24.9 BP 118/76 Blood Pressure Location Lt brachial Position Sitting Respiration 16 Pulse 67 Pulse Source Pulse Oximeter Temp 98.1 F Temp Source Oral Pulse Oximetry (%) 97 Oxygen Delivery Method Room Air Intake Visit Reasons: PE reschedule Pin Or Clip Fastener Required: No Accompanied by: Self / Same As Patient Allergies doxycycline Allergy (Verified 03/10/24 11:33) burning skin sensation Medication List - Last Reconciled 03/18/25 by Mariola Cifuentes MD buprenorphine-naloxone 2-0.5 mg (Suboxone) 2 mg sublingual DAILY zolpidem (Ambien) 20 mg (2 x 10 mg) PO BEDTIME PRN 30 days Tobacco use date assessed: 03/19/24 Dental Screening Dental Screen Date: 03/18/25 Did you have a dental visit in the last 12 months?: Yes Did you have a dental problem in the last 6 months where you did not have access to dental care?: No Was dental information given to patient?: Patient has dentist HPI PE reschedule HPI Details Patient presents for physical [facility] Medical History Chronic allergic rhinitis Pulmonary nodules Eosinophilia Asthma Cavitary pneumonia Hearing loss Annual physical exam Opiate abuse, episodic Tinea corporis Hearing loss Tinnitus Insomnia Surgical History Hx of appendectomy Family History Father Lymphoma Mother Breast cancer Social History Household Members: Family and Other Household Members Other:: father Housing: House Alcohol intake: current Alcohol intake frequency: a few times a week Alcohol type: hard liquor Patient Tobacco Use Status: Never used Tobacco e-Cigarette/Vaping Use: Never Used service: No Current occupational status: employed 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 1. Little interest or pleasure in doing things: not at all 2. Feeling down, depressed, or hopeless: not at all 3. Trouble falling or staying asleep, or sleeping too much: more than half the days 4. Feeling tired or having little energy: not at all 5. Poor appetite or overeating: several days 6. Feeling bad about yourself - or that you are a failure or have let yourself or your family down: not at all 7. Trouble concentrating on things, such as reading the newspaper or watching television: not at all 8. Moving or speaking so slowly that other people could have noticed. Or the opposite - being so fidgety or restless that you have been moving around a lot more than usual: not at all 9. Thoughts that you would be better off or of hurting yourself in some way: not at all Total score: 3 Depression Screening Interpretation: Negative Depression Screening Done: Yes 28168 - PHQ-9 Billing: Yes Source: Developed by Drs. Gilberto Pradhan, Tabby Corbin, Manish Conteh and colleagues, with an educational chanel from [employer] Thrive Questionnaire Date Thrive assessed: 03/19/24 I am a: Patient What is your living situation today?: I have a steady place to live Within the past 12 months, did the food you bought not last and you didn't have the money to get more?: Never true Within the past 12 months, did you worry whether your food would run out before you got money to buy more?: Never true Do you have trouble paying for medicines?: No Do you have trouble getting transportation to medical appointments?: No Do you have trouble paying your heating and electricity bill?: No Do you have trouble taking care of your child, family member or friend?: No Do you have trouble with day-to-day activities such as bathing, preparing meals, shopping, managing finances, etc.?: No Are you currently unemployed and looking for a job?: No Are you interested in more education?: No Please select the resources that you would like help with: None Currently or been in a relationship where the following occur: I choose not to answer THRIVE Score: 0 AUDIT C Alcohol Use Questionnaire (AUDIT-C) 1. How often do you have a drink containing alcohol?: Monthly or less 2. How many drinks containing alcohol do you have on a typical day when you are drinking?: 1 or 2 3. How often do you have six or more drinks on one occasion?: Never Total Score: 1 KESHAV-7 AMB Questionnaire KESHAV-7 Date KESHAV - 7 assessed: 03/19/24 Feeling nervous, anxious, or on edge: 1 = Several days Not being able to stop or control worryin = Several days Worrying too much about different things: 1 = Several days Trouble relaxin = Several days Being so restless that it is hard to sit still: 1 = Several days Becoming easily annoyed or irritable: 1 = Several days Feeling afraid as if something awful might happen: 0 = Not at all Total KESHAV-7 score (0-4 normal; 5-9 mild; 10-14 moderate; 15-21 severe): 6 Source: Developed by Drs. Gilberto Pradhan, Tabby Corbin, Manish Conteh and colleagues, with an educational chanel from [employer] Review of Systems Const All systems reviewed & are unremarkable except as noted in HPI and below Eyes Reports no additional complaints ENT Reports no additional complaints Card Reports no additional complaints Resp Reports no additional complaints GI Reports no additional complaints Reports no additional complaints Physical exam (Primary Care) Vital Signs: Last Vital Signs Temp 98.1 F 03/18/25 14:08 Pulse 67 03/18/25 14:08 Resp 16 03/18/25 14:08 BP 118/76 03/18/25 14:08 Pulse Ox 97 03/18/25 14:08 Oxygen Delivery Method Room Air 03/18/25 14:08 BMI result Body Mass Index 24.9 Tobacco/Smoking Status: Tobacco use Status Tobacco use date assessed 03/19/24 03/18/25 14:14 Patient Tobacco Use Status Never used Tobacco 03/18/25 14:14 e-Cigarette/Vaping Use Never Used 03/18/25 14:14 PHQ-9: PHQ-9 Score PHQ-9: Total score 3 03/18/25 14:14 Depression Screening Interpretation: Negative Thrive Assessment: Date of Thrive Assessment Date Thrive assessed 03/19/24 03/18/25 14:14 Currently or been in a relationship where the following occur: I choose not to answer Const General: no acute distress HENMT Head: Yes normal to inspection Face and sinus: Yes normal facial exam Eyes General: appearance normal, both eyes and all related structures Resp Effort & Inspection: normal respiratory effort Auscultation: clear to auscultation bilaterally Cardio Rhythm: regular rhythm Heart sounds: S1 normal heart sound present and S2 normal heart sound present GI Inspection: Yes normal to inspection Palpation (GI): Soft to palpation Percussion: Yes normal to percussion Auscultation: normal bowel sounds Coding Level of Care Code Est Pt Prev Care 40-64y(34153) Diagnoses Annual physical exam Z00.00 Additional Codes PHQ-9 - 51349 - PHQ-9 Billing: Yes ([id number]) Assessment & Plan Assessment & Plan (1) Annual physical exam: Code(s): Z00.00 - Encounter for general adult medical examination without abnormal findings Category: Medical Plan: Well-balanced diet regular physical activity discussed with the patient he will return for fasting blood work. He will be referred to GI for colonoscopy Orders: Orders Comprehensive Herod. Panel Fast Today Z00.00 - Encounter for general adult medical examination without abnormal findings Lipid Panel Today Z00.00 - Encounter for general adult medical examination without abnormal findings Complete Blood Count Auto Diff Today Z00.00 - Encounter for general adult medical examination without abnormal findings UA w Microscopic Today Z00.00 - Encounter for general adult medical examination without abnormal findings Referrals Gastroenterology Referral Z00.00 - Encounter for general adult medical examination without abnormal findings Medications: Discontinued omeprazole Discontinued Reason: Doctor's Order 20 mg PO DAILY 30 caps 3RF K21.9 - Gastro-esophageal reflux disease without esophagitis
== END 2025-03-18 14:43 | disposition home or self-care (01) ==
LOC: HO.HMCC 14:02
PROVIDERS: PCP Internal Medicine; Visit Provider Internal Medicine
DX: Z00.00 Encounter for general adult medical examination without abnormal findings (principal)

== ENCOUNTER → 2025-03-18 14:02 | Outpatient (BNVA) | payer OTHER, SELFPAY | PROVIDERS: PCP Internal Medicine; Visit Provider Internal Medicine | DX: Z00.00 Encounter for general adult medical examination without abnormal findings (principal); K21.9 Gastro-esophageal reflux disease without esophagitis | CPT/HCPCS: 96127; 99396 ==